=== PATIENT | male | born 1960 | race Caucasian/White ===

== ENCOUNTER 2024-03-03 17:13 | Inpatient (IN) | payer MEDICARE ==
[2024-03-03] MEDS: IPRATROPIUM-ALBUTEROL 3 ML NEB INHALATION STA ×2 (17:24→19:52)
--- NOTE | 2024-03-03 17:28 | ED ---
SOB HPI - General Chief Complaint: Shortness of Breath Stated Complaint: DRAKE Time Seen by Provider: 03/03/24 17:20 Source: patient, EMS, RN notes reviewed Mode of arrival: EMS Limitations: no limitations - History of Present Illness Initial Comments: 63-year-old smoker history of PE in the past also history of COPD who apparently had been feeling well for the past week or so he called EMS today he was found to have a blood pressure in the 70s which improved to the 80s and 90s after about 900 cc of fluids. He was given updraft treatment which did help with his breathing.. He denies any chest pain he does have some upper abdominal discomfort he states he is a poor historian at this time. He is awake and alert though somewhat slow to respond initially. Trauma reported. No overt fevers chills or sweats reported some cough reported. MD Complaint: shortness of breath - Related Data Home Medications Medication Instructions Recorded Confirmed Losartan Potassium 100 mg PO HS 03/03/24 03/03/24 Naproxen [Naprosyn] 500 mg PO HS 03/03/24 03/03/24 Warfarin [Coumadin] 5 mg PO HS 03/03/24 03/03/24 hydroCHLOROthiazide [Hydrodiuril] 25 mg PO HS 03/03/24 03/03/24 traZODone HCL 100 mg PO HS 03/03/24 03/03/24 Allergies Allergy/AdvReac Type Severity Reaction Status Date / Time bee venom protein (honey bee) Allergy Anaphylaxis Verified 03/03/24 18:44 Penicillins Allergy Unknown Verified 03/03/24 18:44 Review of Systems ROS Statement: Those systems with pertinent positive or pertinent negative responses have been documented in the HPI. ROS Other: All systems not noted in ROS Statement are negative. Past Medical History Past Medical History: Unable to Obtain Additional Past Medical History / Comment(s): PE, History of Any Multi-Drug Resistant Organisms: Unobtainable Past Surgical History: Unable to Obtain Past Psychological History: Unable to Obtain Smoking Status: Current every day smoker Past Alcohol Use History: Unable to Obtain Past Drug Use History: Unable to Obtain General Exam - General Exam Comments Initial Comments: Is a well-developed well-nourished awake alert though somewhat lethargic patient Limitations: no limitations General appearance: alert, lethargic Head exam: Present: atraumatic, normocephalic, normal inspection Eye exam: Present: normal appearance, PERRL, EOMI. Absent: scleral icterus, conjunctival injection, periorbital swelling ENT exam: Present: mucous membranes dry Neck exam: Present: normal inspection, full ROM, other (Better JVD or bruits). Absent: tenderness, meningismus, lymphadenopathy Respiratory exam: Present: wheezes (This is especially on the right lung fiel ds), decreased breath sounds. Absent: respiratory distress, rales, rhonchi, stridor Cardiovascular Exam: Present: regular rate, normal rhythm, normal heart sounds. Absent: systolic murmur, diastolic murmur, rubs, gallop, clicks GI/Abdominal exam: Present: soft, normal bowel sounds. Absent: distended, tenderness, guarding, rebound, rigid, bruit, pulsatile mass Extremities exam: Present: full ROM, normal capillary refill, pedal edema (Trace edema). Absent: tenderness, joint swelling, calf tenderness Back exam: Present: normal inspection Neurological exam: Present: alert, oriented X3, CN II-XII intact Psychiatric exam: Present: normal affect, normal mood Skin exam: Present: warm, dry, intact, other (Evidence of a left axillary Neema infection). Absent: rash Course Vital Signs 03/03/24 03/03/24 03/03/24 17:15 17:19 17:24 Temperature Pulse Rate 69 120 H Respiratory 24 16 Rate Blood Pressure 116/92 O2 Sat by Pulse 97 Oximetry 03/03/24 03/03/24 03/03/24 17:31 17:32 17:52 Temperature 97 F L Pulse Rate 136 H 125 H Respiratory 22 22 Rate Blood Pressure O2 Sat by Pulse 100 Oximetry 03/03/24 03/03/24 03/03/24 18:13 18:27 18:53 Temperature Pulse Rate 130 H 124 H 129 H Respiratory 22 22 20 Rate Blood Pressure 108/57 79/59 97/68 O2 Sat by Pulse 90 L 93 L 94 L Oximetry 03/03/24 03/03/24 03/03/24 19:39 19:45 19:54 Temperature Pulse Rate 137 H 129 H 120 H Respiratory 18 20 18 Rate Blood Pressure 89/55 95/60 O2 Sat by Pulse 90 L 90 L Oximetry 03/03/24 03/03/24 03/03/24 19:59 20:44 21:00 Temperature Pulse Rate 145 H 117 H 125 H Respiratory 18 18 Rate Blood Pressure 89/60 103/87 O2 Sat by Pulse 92 L 94 L Oximetry Medical Decision Making - Medical Decision Making I did discuss the findings with the patient I did reevaluate him on multiple occasions. Patient is more awake and conversant at this time. He was found to have acute kidney injury, acute onset A-fib RVR, evidence of clinical dehydration. Hypotension and bronchospasm. Patient will be admitted I did discuss the case with Dr. Sanchez the patient will be admitted to the ICU due to the fluctuating blood pressure and the A-fib RVR. Consultation will be made to cardiology and nephrology. I did discuss case with Tonja Sandoval covering for Dr. Vaz. Was pt. sent in by a medical professional or institution (, PA, STOCK CONTROL SUPERVISOR, urgent care, hospital, or [facility]...) When possible be specific @ -No Did you speak to anyone other than the patient for history (EMS, parent, family, police, friend...)? What history was obtained from this source @ -Paramedics upon arrival Did you review nursing and triage notes (agree or disagree)? Why? @ -I reviewed and agree with nursing and triage notes Were old charts reviewed (outside hosp., previous admission, EMS record, old EKG, old radiological studies, urgent care reports/EKG's, [facility] records)? Report findings @ -No old charts were reviewed Differential Diagnosis (chest pain, altered mental status, abdominal pain women, abdominal pain men, vaginal bleeding, weakness, fever, dyspnea, syncope, headache, dizziness, GI bleed, back pain, seizure, CVA, palpatations, mental health, musculoskeletal)? @ -Dyspnea, failure to thrive, hypotension EKG interpreted by me (3pts min.). @ -As above EKG interpreted by me atrial fibrillation with rapid ventricular response rate of 135 QRS duration 126 QT/QTc 328/407 moderate interventricular conduction delay nonspecific T wave configuration X-rays interpreted by me (1pt min.). @ -X-ray interpreted by me evidence of left lower lobe consolidation pneumonia CT interpreted by me (1pt min.). @ -None done U/S interpreted by me (1pt. min.). @ -None done What testing was considered but not performed or refused? (CT, X-rays, U/S, labs)? Why? @ -CT angio of the chest but cannot be done due to acute kidney injury What meds were considered but not given or refused? Why? @ -None Did you discuss the management of the patient with other professionals (professionals i.e. , PA, STOCK CONTROL SUPERVISOR, lab, RT, psych nurse, social human services assistants, chemical analyst, teacher, corporation officer, transplant case manager)? Give summary @ -Dr. Laura Salinas Was smoking cessation discussed for >3mins.? @ -No Was critical care preformed (if so, how long)? @ -49 minutes Were there social determinants of health that impacted care today? How? (Homelessness, low income, unemployed, alcoholism, drug addiction, transportation, low edu. Level, literacy, decrease access to med. care, [facility], rehab)? @ -No Was there de-escalation of care discussed even if they declined (Discuss DNR or withdrawal of care, Hospice)? DNR status @ -No What co-morbidities impacted this encounter? (DM, HTN, Smoking, COPD, CAD, Cancer, CVA, ARF, Chemo, Hep., AIDS, mental health diagnosis, sleep apnea, morbid obesity)? @ -PE, history of DVT, smoker Was patient admitted / discharged? Hospital course, mention meds given and route, prescriptions, significant lab abnormalities, going to OR and other pertinent info. @ -Hospital course was admitted to the ICU Undiagnosed new problem with uncertain prognosis? @ -No Drug Therapy requiring intensive monitoring for toxicity (Heparin, Nitro, Insulin, Cardizem)? @ -No Were any procedures done? @ -No Diagnosis/symptom? @ -Acute new onset A-fib RVR, left lower lobe pneumonia, hypotension, acute kidney injury, hyponatremia, leukocytosis Acute, or Chronic, or Acute on Chronic? @ -Acute Uncomplicated (without systemic symptoms) or Complicated (systemic symptoms)? @ -Stated] Side effects of treatment? @ -No Exacerbation, Progression, or Severe Exacerbation? @ -No Poses a threat to life or bodily function? How? (Chest pain, [place], [place], pneumonia, PE, COPD, DKA, ARF, appy, cholecystitis, CVA, Diverticulitis, Homicidal, Suicidal, threat to staff... and all critical care pts) @ -Potential - Lab Data Result diagrams: 03/03/24 17:24 03/03/24 17:24 Lab Results 03/03/24 03/03/24 03/03/24 Range/Units 17:24 17:24 17:24 WBC 14.0 H (3.8-10.6) k/uL RBC 4.63 (4.30-5.90) m/uL Hgb 14.5 (13.0-17.5) gm/dL Hct 43.0 (39.0-53.0) % MCV 92.9 (80.0-100.0) fL MCH 31.4 (25.0-35.0) pg MCHC 33.8 (31.0-37.0) g/dL RDW 14.9 (11.5-15.5) % Plt Count 265 (150-450) k/uL MPV 9.2 Neutrophils % 92 % Lymphocytes % 2 % Monocytes % 5 % Eosinophils % 0 % Basophils % 0 % Neutrophils # 12.8 H (1.3-7.7) k/uL Lymphocytes # 0.3 L (1.0-4.8) k/uL Monocytes # 0.7 (0-1.0) k/uL Eosinophils # 0.0 (0-0.7) k/uL Basophils # 0.1 (0-0.2) k/uL Manual Slide Review Performed PT 18.5 H (10.0-12.5) sec INR 1.8 H (<1.2) APTT 35.0 H (22.0-30.0) sec D-Dimer 3.24 H (<0.60) mg/L FEU VBG pH (7.31-7.41) VBG pCO2 (37-51) mmHg VBG HCO3 (24-28) mmol/L Sodium 126 L (137-145) mmol/L Potassium 3.8 (3.5-5.1) mmol/L Chloride 88 L (98-107) mmol/L Carbon Dioxide 21 L (22-30) mmol/L Anion Gap 17 mmol/L BUN 116 H* (9-20) mg/dL Creatinine 4.51 H (0.66-1.25) mg/dL Est GFR (CKD-EPI)AfAm 15 (>60 ml/min/1.73 sqM) Est GFR (CKD-EPI)NonAf 13 (>60 ml/min/1.73 sqM) Glucose 142 H (74-99) mg/dL Lactic Ac Sepsis Rflx Plasma Lactic Acid Jakob (0.7-2.0) mmol/L Calcium 7.2 L (8.4-10.2) mg/dL Magnesium 2.6 H (1.6-2.3) mg/dL Total Bilirubin 2.1 H (0.2-1.3) mg/dL AST 295 H (17-59) U/L ALT 84 H (4-49) U/L Alkaline Phosphatase 65 (38-126) U/L Creatine Kinase 93 (55-170) U/L Troponin I (0.000-0.034) ng/mL NT-Pro-B Natriuret Pep 72830 pg/mL Total Protein 5.5 L (6.3-8.2) g/dL Albumin 2.9 L (3.5-5.0) g/dL Lipase 132 (23-300) U/L Influenza Type A (PCR) (Not Detectd) Influenza Type B (PCR) (Not Detectd) RSV (PCR) (Not Detectd) SARS-CoV-2 (PCR) (Not Detectd) 03/03/24 03/03/24 03/03/24 Range/Units 17:24 17:24 17:24 WBC (3.8-10.6) k/uL RBC (4.30-5.90) m/uL Hgb (13.0-17.5) gm/dL Hct (39.0-53.0) % MCV (80.0-100.0) fL MCH (25.0-35.0) pg MCHC (31.0-37.0) g/dL RDW (11.5-15.5) % Plt Count (150-450) k/uL MPV Neutrophils % % Lymphocytes % % Monocytes % % Eosinophils % % Basophils % % Neutrophils # (1.3-7.7) k/uL Lymphocytes # (1.0-4.8) k/uL Monocytes # (0-1.0) k/uL Eosinophils # (0-0.7) k/uL Basophils # (0-0.2) k/uL Manual Slide Review PT (10.0-12.5) sec INR (<1.2) APTT (22.0-30.0) sec D-Dimer (<0.60) mg/L FEU VBG pH (7.31-7.41) VBG pCO2 (37-51) mmHg VBG HCO3 (24-28) mmol/L Sodium (137-145) mmol/L Potassium (3.5-5.1) mmol/L Chloride (98-107) mmol/L Carbon Dioxide (22-30) mmol/L Anion Gap mmol/L BUN (9-20) mg/dL Creatinine (0.66-1.25) mg/dL Est GFR (CKD-EPI)AfAm (>60 ml/min/1.73 sqM) Est GFR (CKD-EPI)NonAf (>60 ml/min/1.73 sqM) Glucose (74-99) mg/dL Lactic Ac Sepsis Rflx Plasma Lactic Acid Jakob 2.7 H* (0.7-2.0) mmol/L Calcium (8.4-10.2) mg/dL Magnesium (1.6-2.3) mg/dL Total Bilirubin (0.2-1.3) mg/dL AST (17-59) U/L ALT (4-49) U/L Alkaline Phosphatase (38-126) U/L Creatine Kinase (55-170) U/L Troponin I <0.012 (0.000-0.034) ng/mL NT-Pro-B Natriuret Pep pg/mL Total Protein (6.3-8.2) g/dL Albumin (3.5-5.0) g/dL Lipase (23-300) U/L Influenza Type A (PCR) Not Detected (Not Detectd) Influenza Type B (PCR) Not Detected (Not Detectd) RSV (PCR) Not Detected (Not Detectd) SARS-CoV-2 (PCR) Not Detected (Not Detectd) 03/03/24 03/03/24 03/03/24 Range/Units 17:24 18:17 20:34 WBC (3.8-10.6) k/uL RBC (4.30-5.90) m/uL Hgb (13.0-17.5) gm/dL Hct (39.0-53.0) % MCV (80.0-100.0) fL MCH (25.0-35.0) pg MCHC (31.0-37.0) g/dL RDW (11.5-15.5) % Plt Count (150-450) k/uL MPV Neutrophils % % Lymphocytes % % Monocytes % % Eosinophils % % Basophils % % Neutrophils # (1.3-7.7) k/uL Lymphocytes # (1.0-4.8) k/uL Monocytes # (0-1.0) k/uL Eosinophils # (0-0.7) k/uL Basophils # (0-0.2) k/uL Manual Slide Review PT (10.0-12.5) sec INR (<1.2) APTT (22.0-30.0) sec D-Dimer (<0.60) mg/L FEU VBG pH 7.29 L (7.31-7.41) VBG pCO2 49 (37-51) mmHg VBG HCO3 24 (24-28) mmol/L Sodium (137-145) mmol/L Potassium (3.5-5.1) mmol/L Chloride (98-107) mmol/L Carbon Dioxide (22-30) mmol/L Anion Gap mmol/L BUN (9-20) mg/dL Creatinine (0.66-1.25) mg/dL Est GFR (CKD-EPI)AfAm (>60 ml/min/1.73 sqM) Est GFR (CKD-EPI)NonAf (>60 ml/min/1.73 sqM) Glucose (74-99) mg/dL Lactic Ac Sepsis Rflx Y Plasma Lactic Acid Jakob 2.0 (0.7-2.0) mmol/L Calcium (8.4-10.2) mg/dL Magnesium (1.6-2.3) mg/dL Total Bilirubin (0.2-1.3) mg/dL AST (17-59) U/L ALT (4-49) U/L Alkaline Phosphatase (38-126) U/L Creatine Kinase (55-170) U/L Troponin I (0.000-0.034) ng/mL NT-Pro-B Natriuret Pep pg/mL Total Protein (6.3-8.2) g/dL Albumin (3.5-5.0) g/dL Lipase (23-300) U/L Influenza Type A (PCR) (Not Detectd) Influenza Type B (PCR) (Not Detectd) RSV (PCR) (Not Detectd) SARS-CoV-2 (PCR) (Not Detectd) Critical Care Time Critical Care Time: Yes Total Critical Care Time: 49 Disposition Clinical Impression: Acute kidney injury, Atrial fibrillation, Pneumonia, Hypotension, Acute bronchospasm Disposition: ADMITTED IP TO THIS [facility] Condition: Serious Referrals: None,Stated [REFERRING] - 1-2 days Time of Disposition: 21:00 Decision Date: 03/03/24 Decision Time: 21:00
[2024-03-03 17:41] LABS: VBG PH 7.29 (7.31-7.41)
[2024-03-03 17:51] LABS: Basophils # (A) 0.1 k/uL (0-0.2); Basophils % (A) 0 %; Eosinophils % (A) 0 %; HGB 14.5 gm/dL (13.0-17.5); Lymphocytes # (A) 0.3 k/uL (1.0-4.8); Lymphocytes % (A) 2 %; MCH 31.4 pg (25.0-35.0); MCHC 33.8 g/dL (31.0-37.0); MCV 92.9 fL (80.0-100.0); Mean Platelet Volume 9.2; Monocytes # (A) 0.7 k/uL (0-1.0); Monocytes % (A) 5 %; Neutrophils # (A) 12.8 k/uL (1.3-7.7); Neutrophils % (A) 92 %; Platelet Count 265 k/uL (150-450); RBC 4.63 m/uL (4.30-5.90); RDW 14.9 % (11.5-15.5)
[2024-03-03 18:06] LABS: INR 1.8 (<1.2); Prothrombin Time 18.5 sec (10.0-12.5)
--- NOTE | 2024-03-03 18:06 | XR ---
EXAMINATION TYPE: XR chest 2V DATE OF EXAM: 03/03/2024 COMPARISON: NONE HISTORY: Shortness of breath TECHNIQUE: Frontal and lateral views of the chest are obtained. FINDINGS: Scattered senescent parenchymal changes noted. Hyperinflation compatible with COPD. There is prominence of the left hilum and basilar prominence seen which may reflect underlying pneumo ann. Correlate clinically. Heart size is stable. Mediastinal structures are stable and grossly unremarkable. No evidence for hilar prominence. Degenerative changes dorsal spine. IMPRESSION: 1. There is prominence of the left hilum and basilar prominence seen which may reflect underlying pne umonia. Correlate clinically.
[2024-03-03 18:08] LABS: ALT 84 U/L (4-49); AST 295 U/L (17-59); Albumin 2.9 g/dL (3.5-5.0); Alkaline Phosphatase 65 U/L (38-126); Anion Gap 17 mmol/L; Calcium 7.2 mg/dL (8.4-10.2); Carbon Dioxide 21 mmol/L (22-30); Chloride 88 mmol/L (98-107); Creatine Kinase 93 U/L (55-170); Glucose 142 mg/dL (74-99); Lipase 132 U/L (23-300); Magnesium 2.6 mg/dL (1.6-2.3); Potassium 3.8 mmol/L (3.5-5.1); Sodium 126 mmol/L (137-145); Total Bilirubin 2.1 mg/dL (0.2-1.3); Total Protein 5.5 g/dL (6.3-8.2)
[2024-03-03 18:14] LABS: African American GFR (CKD) 15 (>60 ml/min/1.73 sqM); Non-African American GFR(CKD) 13 (>60 ml/min/1.73 sqM)
[2024-03-03 18:17] LABS: Blood Urea Nitrogen 116 mg/dL (9-20)
[2024-03-03 18:18] LABS: NT-Pro-B-Type Natriuretic Pept 10100 pg/mL
[2024-03-03] MEDS: SODIUM CHLORIDE 0.9% 500 ML 500 ML IV STA (18:36)
[2024-03-03] MEDS: cefTRIAXone IN SWFI 1,000 MG/10 ML SYRINGE IVP STA (18:52)
--- NOTE | 2024-03-03 19:07 | US ---
EXAMINATION TYPE: US gallbladder DATE OF EXAM: 03/03/2024 COMPARISON: NONE CLINICAL INDICATION: Male, 63 years old with history of right upper quadrant abdominal pain; TECHNIQUE: Multiple sonographic images of the right upper quadrant are obtained. FINDINGS: EXAM MEASUREMENTS: Liver Length: 18.3 cm Gallbladder Wall: 0.3 cm CBD: 3.3 mm Right Kidney: 11.7 x 6.8 x 5.5 cm COUNTY SURVEYOR NOTES: Pancreas: wnl Liver: Slightly enlarged Gallbladder: wnl Evidence for sonographic Garcia's sign: No CBD: 3.3 mm Right Kidney: wnl IMPRESSION: No imaging findings I would explain the patient's symptoms. Normal gallbladder.
[2024-03-03] MEDS ORDERED: HEPARIN SODIUM 1,000 UN/ML (10ML VL) IV PRN (19:18)
[2024-03-03] MEDS: DILTIAZEM 125 MG in SODIUM CHLORIDE 0.9% 100 ML IV SCH (19:43)
[2024-03-03] MEDS: HEPARIN SODIUM 1,000 UN/ML (10ML VL) IV ONE (19:49)
[2024-03-03] MEDS: HEPARIN SOD,PORK IN 0.45% NACL 25,000 UNIT in 0.45% NACL 1 250ML.BAG IV SCH (19:50)
[2024-03-03] MEDS: DILTIAZEM 5 MG/ML 5 ML VIAL IVP STA (20:11)
[2024-03-03] MEDS: SODIUM CHLORIDE 0.9% 500 ML 500 ML IV ONE (21:05)
[2024-03-03] MEDS: methylPREDNISolone SOD SUCCI 125 MG/2 ML VIAL IV STA (21:38)
[2024-03-03] MEDS ORDERED: ACETAMINOPHEN TAB 325 MG TAB PO PRN (21:47)
[2024-03-03] MEDS ORDERED: NALOXONE 0.4 MG/ML 1 ML VIAL IV PRN (21:47)
[2024-03-03] MEDS: SODIUM CHLORIDE 0.9% 1,000 ML IV STA (22:23)
[2024-03-03 23:06] LABS: Glucose,Whole Blood 148 mg/dL (70-110)
[2024-03-04] MEDS ORDERED: HYDROcodone/APAP 5-325MG 1 EACH TAB PO PRN (00:25)
[2024-03-04] MEDS: NYSTATIN 100,000 UNIT/GM OINT 30 GM TUBE TOPICAL SCH (01:15)
[2024-03-04] MEDS: SODIUM CHLORIDE 0.9% 1,000 ML IV SCH (05:15)
[2024-03-04 05:58] LABS: ALT 73 U/L (4-49); AST 256 U/L (17-59); Albumin 2.3 g/dL (3.5-5.0); Alkaline Phosphatase 70 U/L (38-126); Anion Gap 15 mmol/L; Carbon Dioxide 16 mmol/L (22-30); Chloride 92 mmol/L (98-107); Glucose 222 mg/dL (74-99); Potassium 3.5 mmol/L (3.5-5.1); Sodium 123 mmol/L (137-145); Total Bilirubin 1.4 mg/dL (0.2-1.3); Total Protein 4.7 g/dL (6.3-8.2)
[2024-03-04 06:04] LABS: African American GFR (CKD) 17 (>60 ml/min/1.73 sqM); Non-African American GFR(CKD) 14 (>60 ml/min/1.73 sqM)
[2024-03-04 06:08] LABS: Blood Urea Nitrogen 114 mg/dL (9-20); Calcium 6.3 mg/dL (8.4-10.2)
[2024-03-04 06:26] LABS: Glucose,Whole Blood 260 mg/dL (70-110)
--- NOTE | 2024-03-04 06:42 | XR ---
EXAMINATION TYPE: XR chest 1V DATE OF EXAM: 03/04/2024 COMPARISON: 03/03/2024 HISTORY: Left lower lobe infiltrate progress TECHNIQUE: Single frontal view of the chest is obtained. FINDINGS: There is mild worsening of the cephalization of the pulmonary vasculature. The retrocardiac opacity o bscuring left hemidiaphragm is unchanged. There is no pneumothorax. IMPRESSION: 1. No change in the left lower lobe infiltrate. 2. Increasing cephalization of the pulmonary vasculature consistent with CHF.
[2024-03-04 07:20] LABS: Basophils % (A) 0 %; Eosinophils # (A) 0.1 k/uL (0-0.7); Eosinophils % (A) 0 %; Lymphocytes # (A) 0.3 k/uL (1.0-4.8); Lymphocytes % (A) 2 %; MCH 31.4 pg (25.0-35.0); MCHC 33.4 g/dL (31.0-37.0); MCV 93.9 fL (80.0-100.0); Mean Platelet Volume 9.6; Monocytes # (A) 0.5 k/uL (0-1.0); Monocytes % (A) 3 %; Neutrophils # (A) 14.1 k/uL (1.3-7.7); Neutrophils % (A) 94 %; Platelet Count 231 k/uL (150-450); RBC 3.83 m/uL (4.30-5.90); RDW 15.1 % (11.5-15.5); WBC 14.9 k/uL (3.8-10.6)
[2024-03-04 07:23] LABS: Anion Gap 14 mmol/L; Carbon Dioxide 16 mmol/L (22-30); Chloride 93 mmol/L (98-107); Glucose 221 mg/dL (74-99); Potassium 3.6 mmol/L (3.5-5.1); Sodium 123 mmol/L (137-145)
[2024-03-04 07:29] LABS: African American GFR (CKD) 16 (>60 ml/min/1.73 sqM); Non-African American GFR(CKD) 14 (>60 ml/min/1.73 sqM)
[2024-03-04 07:43] LABS: Blood Urea Nitrogen 116 mg/dL (9-20); Calcium 6.4 mg/dL (8.4-10.2)
[2024-03-04] MEDS: IPRATROPIUM-ALBUTEROL 3 ML NEB INHALATION SCH (08:01)
[2024-03-04] MEDS: FAMOTIDINE 20 MG TAB PO SCH (08:25)
[2024-03-04] MEDS: BUDESONIDE 1 MG/2 ML NEBU INHALATION SCH (09:18)
[2024-03-04] MEDS: FORMOTEROL FUMARATE 20 MCG/2 ML NEBU INHALATION SCH (09:18)
[2024-03-04] MEDS: ALPRAZolam 0.25 MG TAB PO PRN (10:25)
--- NOTE | 2024-03-04 10:56 | P.CNPUL ---
History of Present Illness Consult date: 03/04/24 Requesting physician: Lyric Vaz Reason for consult: dyspnea, other (Critical care management) Chief complaint: Shortness of breath, weakness History of present illness: This is a 63-year-old male patient who is somewhat of a poor historian. He has not been compliant with his medications and follow-ups with a primary care provider. He states he has not done well since his brother and scientific research manager approximately 1 month ago. He does have a history of atrial fibrillation anticoagulated with warfarin, hypertension. He came to the emergency room yesterday by EMS for shortness of breath and generalized weakness over the past several weeks. He was found to be hypotensive in the 70s systolically and improved into the 80s and 90s following a liter bolus. Chest x-ray lobe infiltrate. Increased pulmonary vascular congestion consistent with congestive heart failure. White count 14.9. Hemoglobin 12.0. Platelets 231. Sodium 123. Potassium 3.6. Bicarb 16. BUN 116. Creatinine 4.16. Glucose 221. proBNP 10,100. AST 256. ALT 73. Ultrasound the gallbladder within normal limits. He is seen today in consultation in the intensive care unit. He is currently awake and alert. Unsure of his home medications. Is a smoker. He is currently on heparin drip per weight-based protocol. Cardizem drip at 5 mg an hour. Normal saline at KVO. He was requiring BiPAP support currently 12/5 and 100% FiO2 alternating with 15 L of high flow nasal cannula. Review of Systems REVIEW OF SYSTEMS: CONSTITUTIONAL: Positive for generalized weakness. Denies any recent significant weight loss or weight gain. EYES: Denies change in vision. EARS, NOSE, MOUTH, THROAT: Denies headaches, denies sore throat. CARDIOVASCULAR: Denies chest pain, palpitations or syncopal episodes. RESPIRATORY: Positive for shortness of breath, cough, congestion no hemoptysis. GASTROINTESTINAL: Denies change in appetite, denies abdominal pain GENITOURINARY: Denies hematuria, denies infections. MUSKULOSKELETAL: Positive for lower extremity swelling. INTEGUMENTARY: Denies rash, denies eczema. NEUROLOGICAL: Denies recent memory loss, no recent seizure activity. PSYCHIATRIC: Denies anxiety, denies depression. HEMATOLOGIC/LYMPHATIC: Denies anemia, denies enlarged lymph nodes. Past Medical History Past Medical History: Atrial Fibrillation, COPD, Hypertension, Pulmonary Embolus (PE), Thyroid Disorder Additional Past Medical History / Comment(s): PE, History of Any Multi-Drug Resistant Organisms: None Reported Past Surgical History: Joint Replacement, Tonsillectomy Additional Past Surgical History / Comment(s): Total Right knee replacement Past Anesthesia/Blood Transfusion Reactions: No Reported Reaction Past Psychological History: Anxiety, Depression Additional Psychological History / Comment(s): Current Smoking Status: Current every day smoker Past Alcohol Use History: None Reported Past Drug Use History: Marijuana Additional Drug Use History / Comment(s): Daily marijuana use for back pain. Per patient he did have history of opioid addiction that required methadone treatment Medications and Allergies Home Medications Medication Instructions Recorded Confirmed Type Losartan Potassium 100 mg PO HS 03/03/24 03/03/24 History Naproxen [Naprosyn] 500 mg PO HS 03/03/24 03/03/24 History Warfarin [Coumadin] 5 mg PO HS 03/03/24 03/03/24 History hydroCHLOROthiazide [Hydrodiuril] 25 mg PO HS 03/03/24 03/03/24 History traZODone HCL 100 mg PO HS 03/03/24 03/03/24 History Allergies Allergy/AdvReac Type Severity Reaction Status Date / Time bee venom protein (honey bee) Allergy Anaphylaxis Verified 03/03/24 18:44 Penicillins Allergy Unknown Verified 03/03/24 18:44 Physical Exam Vitals: Vital Signs Temp Pulse Resp BP Pulse Ox FiO2 03/04/24 10:00 114 H 19 93/61 99 100 03/04/24 09:34 101 H 03/04/24 09:30 108 H 22 98/63 94 L 100 03/04/24 09:18 105 H 100 03/04/24 09:00 109 H 20 115/68 93 L 03/04/24 08:54 100 03/04/24 08:30 105 H 25 H 97/74 92 L 03/04/24 08:28 98 03/04/24 08:02 98 90 L 03/04/24 08:00 98.2 F 98 22 106/62 95 03/04/24 07:30 106 H 20 113/78 92 L 15 03/04/24 07:00 106 H 24 103/64 90 L 03/04/24 06:30 98 32 H 130/54 89 L 03/04/24 06:00 109 H 24 130/54 90 L 03/04/24 05:30 106 H 18 89/62 89 L 03/04/24 05:00 99 19 93/65 88 L 03/04/24 04:30 107 H 23 107/69 89 L 03/04/24 04:00 98.0 F 111 H 17 99/61 88 L 03/04/24 03:30 109 H 18 96/76 90 L 03/04/24 03:00 108 H 24 103/67 90 L 03/04/24 02:30 112 H 22 97/66 89 L 03/04/24 02:00 112 H 25 H 93/52 88 L 03/04/24 01:30 112 H 21 105/74 91 L 03/04/24 01:10 112 H 25 H 105/74 91 L 03/04/24 01:00 116 H 35 H 95/71 90 L 03/04/24 00:50 112 H 19 95/71 90 L 03/04/24 00:40 123 H 24 95/71 89 L 03/04/24 00:30 128 H 27 H 119/69 90 L 03/04/24 00:20 118 H 28 H 119/69 91 L 03/04/24 00:10 128 H 22 119/69 90 L 03/04/24 00:00 98.0 F 122 H 24 101/63 89 L 03/03/24 23:50 126 H 24 101/63 88 L 03/03/24 23:40 125 H 28 H 101/63 90 L 03/03/24 23:30 117 H 30 H 91/70 92 L 03/03/24 23:20 121 H 24 91/70 92 L 03/03/24 23:10 97.9 F 131 H 22 105/58 91 L 03/03/24 22:35 114 H 20 113/82 93 L 03/03/24 22:00 120 H 18 92/53 92 L 03/03/24 21:00 125 H 18 103/87 94 L 03/03/24 20:44 117 H 18 89/60 92 L 03/03/24 19:59 145 H 03/03/24 19:54 120 H 18 03/03/24 19:45 129 H 20 95/60 90 L 03/03/24 19:39 137 H 18 89/55 90 L 03/03/24 18:53 129 H 20 97/68 94 L 03/03/24 18:27 124 H 22 79/59 93 L 03/03/24 18:13 130 H 22 108/57 90 L 03/03/24 17:52 125 H 22 100 03/03/24 17:32 136 H 22 03/03/24 17:31 97 F L 03/03/24 17:24 120 H 16 03/03/24 17:19 116/92 03/03/24 17:15 69 24 97 Intake and Output 03/03/24 03/04/24 03/04/24 22:59 06:59 14:59 Intake Total 80 360.171 Output Total 450 250 Balance -370 110.171 Intake: IV 80 50 Invasive Line 1 10 Sodium Chloride 0.9% 1, 80 40 000 ml @ 10 mls/hr IV . Q24H VICTOR M Rx#:[id number] Intake, IV Titration 290.171 Amount Diltiazem 125 mg In 74.417 Sodium Chloride 0.9% 100 ml @ 5 MG/HR 5 mls/hr IV .Q24H VICTOR M Rx#:[id number] Heparin Sod,Pork in 0.45% 215.754 NaCl 25,000 unit In 0.45 % NaCl 1 250ml.bag @ 18 UNITS/KG/HR 17.146 mls/hr IV .[id number] VICTOR M Rx#: [id number] Oral 20 Output: Urine 450 250 Other: # Voids 0 0 # Bowel Movements 0 Weight 95.254 kg 101.968 kg GENERAL EXAM: Alert, disheveled, unkept 63-year-old male, on BiPAP 12/5 and 100% FiO2, in no apparent distress. HEAD: Normocephalic. EYES: Normal reaction of pupils, equal size. NOSE: Clear with pink turbinates. THROAT: No erythema or exudates. NECK: No masses, no JVD. CHEST: No chest wall deformity. LUNGS: Equal air entry with bilateral scattered rhonchi, crackles in the posterior bases. CVS: S1 and S2 normal with no audible murmur, regular rhythm. ABDOMEN: Obese, no hepatosplenomegaly, normal bowel sounds, no guarding or rigidity. SPINE: No scoliosis or deformity SKIN: No rashes CENTRAL NERVOUS SYSTEM: No focal deficits, tone is normal in all 4 extremities. EXTREMITIES: Rash in the bilateral groins, there is 1-2+ peripheral edema. No clubbing, no cyanosis. Peripheral pulses are intact. Results - Laboratory Findings CBC and BMP: 03/04/24 06:46 03/04/24 06:46 PT/INR, D-dimer PT 18.5 sec (10.0-12.5) H 03/03/24 17:24 INR 1.8 (<1.2) H 03/03/24 17:24 D-Dimer 3.24 mg/L FEU (<0.60) H 03/03/24 17:24 Abnormal lab findings: Abnormal Labs 03/03/24 03/03/24 03/03/24 17:24 17:24 17:24 WBC 14.0 H RBC Hgb Hct Neutrophils # 12.8 H Lymphocytes # 0.3 L PT 18.5 H INR 1.8 H APTT 35.0 H D-Dimer 3.24 H VBG pH Sodium 126 L Chloride 88 L Carbon Dioxide 21 L BUN 116 H* Creatinine 4.51 H Glucose 142 H POC Glucose (mg/dL) Plasma Lactic Acid Jakob Calcium 7.2 L Ionized Calcium Enedina Magnesium 2.6 H Total Bilirubin 2.1 H AST 295 H ALT 84 H Total Protein 5.5 L Albumin 2.9 L 03/03/24 03/03/24 03/03/24 17:24 17:24 23:04 WBC RBC Hgb Hct Neutrophils # Lymphocytes # PT INR APTT D-Dimer VBG pH 7.29 L Sodium Chloride Carbon Dioxide BUN Creatinine Glucose POC Glucose (mg/dL) 148 H Plasma Lactic Acid Jakob 2.7 H* Calcium Ionized Calcium Enedina Magnesium Total Bilirubin AST ALT Total Protein Albumin 03/04/24 03/04/24 03/04/24 01:22 04:55 06:24 WBC RBC Hgb Hct Neutrophils # Lymphocytes # PT INR APTT 60.5 H D-Dimer VBG pH Sodium 123 L Chloride 92 L Carbon Dioxide 16 L BUN 114 H* Creatinine 4.11 H Glucose 222 H POC Glucose (mg/dL) 260 H Plasma Lactic Acid Jakob Calcium 6.3 L* Ionized Calcium Enedina Magnesium Total Bilirubin 1.4 H AST 256 H ALT 73 H Total Protein 4.7 L Albumin 2.3 L 03/04/24 03/04/24 03/04/24 06:46 06:46 08:14 WBC 14.9 H RBC 3.83 L Hgb 12.0 L Hct 36.0 L Neutrophils # 14.1 H Lymphocytes # 0.3 L PT INR APTT D-Dimer VBG pH Sodium 123 L Chloride 93 L Carbon Dioxide 16 L BUN 116 H* Creatinine 4.16 H Glucose 221 H POC Glucose (mg/dL) Plasma Lactic Acid Jakob Calcium 6.4 L* Ionized Calcium [place] 3.7 L Magnesium Total Bilirubin AST ALT Total Protein Albumin - Diagnostic Findings Chest x-ray: image reviewed Assessment and Plan Assessment: Acute hypoxemic respiratory failure secondary to an acute exacerbation of suspected diastolic versus systolic congestive heart failure, possible pneumonia Atrial fibrillation with rapid ventricular response, currently on a heparin drip, Cardizem drip Acute kidney injury suspect secondary to dehydration, hypotension Leukocytosis Hyponatremia Hyperglycemia Hypocalcemia Transaminitis Chronic tobacco dependence Poor medical compliance Plan: Patient was seen and evaluated Chest x-ray, labs and medications reviewed Currently on BiPAP 12/5 and 100% FiO2 Alternate with Airvo versus high flow oxygen as tolerated Titrate down the FiO2 as tolerated Continue heparin drip Continue Cardizem drip Continue DuoNeb inhalation, Solu-Medrol Add Pulmicort and Perforomist inhalations Check a procalcitonin Echocardiogram pending Cardiology, nephrology consults We will continue to follow and make further recommendations based on his clinical status I have personally seen and examined the patient, performed the documentation and the assessment and plan as written. Number of minutes spent on the visit: 20.
--- NOTE | 2024-03-04 11:30 | P.CRDCN ---
History of Present Illness Consult date: 03/04/24 History of present illness: The patient is a 63-year-old gentleman who requested to see the intensive care unit. The patient somewhat is poor historian. The patient does have a past medical history significant for hypertension and also history of atrial fibrillation not on any anticoagulation. No history of coronary artery disease or congestive heart failure. The patient presented to the hospital complaining of progressive weakness for the last several weeks. Beside that he has been experiencing progressive dyspnea. No symptoms of chest pain or chest discomfort or dizziness or lightheadedness or any presyncope or syncope. He was found to be hypoxic in the emergency department and he was started on BiPAP and admitted to the intensive care unit. Also he was found to be in atrial fibrillation with a slightly uncontrolled heart rate. He is known to have history of paroxysmal atrial fibrillation not on any anticoagulation. Also further investigation p erformed including blood work showed severely abnormal creatinine which was around 5. Nephrology is on the case. The patient is not aware of any prior history of chronic kidney disease. The EKG showed atrial fibrillation with heart rate around 110 bpm with diffuse nonspecific ST and T wave abnormalities. The pressure has been soft with a systolic pressure in the 90s. Currently he is not on any vasopressors. Also he stated function test came to be abnormal which is likely secondary to hypotension. The physical examination is remarkable for irregular rhythm with a systolic murmur at the right and left upper sternal border and bilateral rhonchi and wheezing as well as no edema was noted in the lower extremities. Assessment Acute hypoxic respiratory failure likely to be multifactorial Possible underlying pneumonia Heart failure/fluid overload Acute renal failure Atrial fibrillation with uncontrolled heart rate Obesity Plan The patient seems to be stable with a soft blood pressure and he is not on any vasopressors Start the patient on small dose of beta-linnette with metoprolol 12.5 mg p.o. twice daily Continue IV heparin at this point Obtain an echocardiogram with Doppler Follow-up with the serial cardiac enzymes Follow-up with the patient Past Medical History Past Medical History: Atrial Fibrillation, COPD, Hypertension, Pulmonary Embolus (PE), Thyroid Disorder Additional Past Medical History / Comment(s): PE, History of Any Multi-Drug Resistant Organisms: None Reported Past Surgical History: Joint Replacement, Tonsillectomy Additional Past Surgical History / Comment(s): Total Right knee replacement Past Anesthesia/Blood Transfusion Reactions: No Reported Reaction Past Psychological History: Anxiety, Depression Additional Psychological History / Comment(s): Current Smoking Status: Current every day smoker Past Alcohol Use History: None Reported Past Drug Use History: Marijuana Additional Drug Use History / Comment(s): Daily marijuana use for back pain. Per patient he did have history of opioid addiction that required methadone treatment Medications and Allergies Home Medications Medication Instructions Recorded Confirmed Type Losartan Potassium 100 mg PO HS 03/03/24 03/03/24 History Naproxen [Naprosyn] 500 mg PO HS 03/03/24 03/03/24 History Warfarin [Coumadin] 5 mg PO HS 03/03/24 03/03/24 History hydroCHLOROthiazide [Hydrodiuril] 25 mg PO HS 03/03/24 03/03/24 History traZODone HCL 100 mg PO HS 03/03/24 03/03/24 History Allergies Allergy/AdvReac Type Severity Reaction Status Date / Time bee venom protein (honey bee) Allergy Anaphylaxis Verified 03/03/24 18:44 Penicillins Allergy Unknown Verified 03/03/24 18:44 Physical Exam Vitals: Vital Signs Temp Pulse Resp BP Pulse Ox FiO2 03/04/24 10:00 114 H 19 93/61 99 100 03/04/24 09:34 101 H 03/04/24 09:30 108 H 22 98/63 94 L 100 03/04/24 09:18 105 H 100 03/04/24 09:00 109 H 20 115/68 93 L 03/04/24 08:54 100 03/04/24 08:30 105 H 25 H 97/74 92 L 03/04/24 08:28 98 03/04/24 08:02 98 90 L 03/04/24 08:00 98.2 F 98 22 106/62 95 03/04/24 07:30 106 H 20 113/78 92 L 15 03/04/24 07:00 106 H 24 103/64 90 L 03/04/24 06:30 98 32 H 130/54 89 L 03/04/24 06:00 109 H 24 130/54 90 L 03/04/24 05:30 106 H 18 89/62 89 L 03/04/24 05:00 99 19 93/65 88 L 03/04/24 04:30 107 H 23 107/69 89 L 03/04/24 04:00 98.0 F 111 H 17 99/61 88 L 03/04/24 03:30 109 H 18 96/76 90 L 03/04/24 03:00 108 H 24 103/67 90 L 03/04/24 02:30 112 H 22 97/66 89 L 03/04/24 02:00 112 H 25 H 93/52 88 L 03/04/24 01:30 112 H 21 105/74 91 L 03/04/24 01:10 112 H 25 H 105/74 91 L 03/04/24 01:00 116 H 35 H 95/71 90 L 03/04/24 00:50 112 H 19 95/71 90 L 03/04/24 00:40 123 H 24 95/71 89 L 03/04/24 00:30 128 H 27 H 119/69 90 L 03/04/24 00:20 118 H 28 H 119/69 91 L 03/04/24 00:10 128 H 22 119/69 90 L 03/04/24 00:00 98.0 F 122 H 24 101/63 89 L 03/03/24 23:50 126 H 24 101/63 88 L 03/03/24 23:40 125 H 28 H 101/63 90 L 03/03/24 23:30 117 H 30 H 91/70 92 L 03/03/24 23:20 121 H 24 91/70 92 L 03/03/24 23:10 97.9 F 131 H 22 105/58 91 L 03/03/24 22:35 114 H 20 113/82 93 L 03/03/24 22:00 120 H 18 92/53 92 L 03/03/24 21:00 125 H 18 103/87 94 L 03/03/24 20:44 117 H 18 89/60 92 L 03/03/24 19:59 145 H 03/03/24 19:54 120 H 18 03/03/24 19:45 129 H 20 95/60 90 L 03/03/24 19:39 137 H 18 89/55 90 L 03/03/24 18:53 129 H 20 97/68 94 L 03/03/24 18:27 124 H 22 79/59 93 L 03/03/24 18:13 130 H 22 108/57 90 L 03/03/24 17:52 125 H 22 100 03/03/24 17:32 136 H 22 03/03/24 17:31 97 F L 07/27/24 17:24 120 H 16 03/03/24 17:19 116/92 03/03/24 17:15 69 24 97 Intake and Output 03/03/24 03/04/24 03/04/24 22:59 06:59 14:59 Intake Total 80 360.171 Output Total 450 250 Balance -370 110.171 Intake: IV 80 50 Invasive Line 1 10 Sodium Chloride 0.9% 1, 80 40 000 ml @ 10 mls/hr IV . Q24H VICTOR M Rx#:[id number] Intake, IV Titration 290.171 Amount Diltiazem 125 mg In 74.417 Sodium Chloride 0.9% 100 ml @ 5 MG/HR 5 mls/hr IV .Q24H VICTOR M Rx#:[id number] Heparin Sod,Pork in 0.45% 215.754 NaCl 25,000 unit In 0.45 % NaCl 1 250ml.bag @ 18 UNITS/KG/HR 17.146 mls/hr IV .[id number] VICTOR M Rx#: [id number] Oral 20 Output: Urine 450 250 Other: # Voids 0 0 # Bowel Movements 0 Weight 95.254 kg 101.968 kg Results 03/04/24 06:46 03/04/24 06:46 Cardiac Enzymes 03/03/24 03/03/24 03/04/24 Range/Units 17:24 17:24 04:55 AST 295 H 256 H (17-59) U/L Troponin I <0.012 (0.000-0.034) ng/mL Coagulation 03/03/24 03/04/24 Range/Units 17:24 01:22 PT 18.5 H (10.0-12.5) sec APTT 35.0 H 60.5 H (22.0-30.0) sec CBC 03/03/24 03/04/24 Range/Units 17:24 06:46 WBC 14.0 H 14.9 H (3.8-10.6) k/uL RBC 4.63 3.83 L (4.30-5.90) m/uL Hgb 14.5 12.0 L (13.0-17.5) gm/dL Hct 43.0 36.0 L (39.0-53.0) % Plt Count 265 231 (150-450) k/uL Comprehensive Metabolic Panel 03/03/24 03/04/24 03/04/24 Range/Units 17:24 04:55 06:46 Sodium 126 L 123 L 123 L (137-145) mmol/L Potassium 3.8 3.5 3.6 (3.5-5.1) mmol/L Chloride 88 L 92 L 93 L (98-107) mmol/L Carbon Dioxide 21 L 16 L 16 L (22-30) mmol/L BUN 116 H* 114 H* 116 H* (9-20) mg/dL Creatinine 4.51 H 4.11 H 4.16 H (0.66-1.25) mg/dL Glucose 142 H 222 H 221 H (74-99) mg/dL Calcium 7.2 L 6.3 L* 6.4 L* (8.4-10.2) mg/dL AST 295 H 256 H (17-59) U/L ALT 84 H 73 H (4-49) U/L Alkaline Phosphatase 65 70 (38-126) U/L Total Protein 5.5 L 4.7 L (6.3-8.2) g/dL Albumin 2.9 L 2.3 L (3.5-5.0) g/dL Current Medications Generic Name Dose Route Start Last Admin Trade Name Freq PRN Reason Stop Dose Admin Acetaminophen 650 mg 03/03/24 21:47 Acetaminophen Tab 325 Mg Tab PO Q4HR PRN Fever and/or Mild Pain Albuterol/Ipratropium 3 ml 03/04/24 08:00 03/04/24 08:01 Ipratropium-Albuterol 3 Ml Neb INHALATION 3 ml RT-QID VICTOR M Administration Alprazolam 0.25 mg 03/04/24 09:52 03/04/24 10:25 Alprazolam 0.25 Mg Tab PO 0.25 mg TID PRN Administration Anxiety Budesonide 1 mg 03/04/24 09:00 03/04/24 09:18 Budesonide 1 Mg/2 Ml Nebu INHALATION 1 mg RT-BID VICTORM Administration Famotidine 20 mg 03/05/24 09:00 Famotidine 20 Mg Tab PO DAILY VICTOR M Formoterol Fumarate 20 mcg 03/04/24 09:00 03/04/24 09:18 Formoterol Fumarate 20 Mcg/2 Ml Nebu INHALATION 20 mcg RT-BID VICTOR M Administration Heparin Sodium (Porcine) 0 unit 03/03/24 19:18 Heparin Sodium 1,000 Un/Ml (10ml Vl) IV PER PROTOCOL PRN Low PTT Protocol Heparin Sodium/Sodium Chloride 250 mls @ 17.146 mls/hr 03/03/24 19:30 03/04/24 08:25 25,000 unit/ Sodium Chloride IV 18 units/kg/hr .[id number] VICTOR M 17.146 mls/hr Administration Protocol 18 UNITS/KG/HR Sodium Chloride 1,000 mls @ 10 mls/hr 03/04/24 00:00 03/04/24 05:15 Saline 0.9% IV 10 mls/hr .Q24H VICTOR M Administration Diltiazem HCl 125 mg/ Sodium 125 mls @ 5 mls/hr 03/04/24 10:45 Chloride IV .Q24H VICTOR M Protocol 5 MG/HR Methylprednisolone Sodium Succinate 60 mg 03/04/24 12:00 Methylprednisolone Sod Succi 125 Mg/2 Ml Vial IV Q6HR VICTOR M Naloxone HCl 0.2 mg 03/03/24 21:47 Naloxone 0.4 Mg/Ml 1 Ml Vial IV Q2M PRN Opioid Reversal Nystatin 1 applic 03/04/24 01:00 03/04/24 08:56 Nystatin 100,000 Unit/Gm Oint 30 Gm Tube TOPICAL 1 applic BID VICTOR M Administration Protocol Intake and Output 03/03/24 03/04/24 03/04/24 22:59 06:59 14:59 Intake Total 80 360.171 Output Total 450 250 Balance -370 110.171 Intake: IV 80 50 Invasive Line 1 10 Sodium Chloride 0.9% 1, 80 40 000 ml @ 10 mls/hr IV . Q24H VICTOR M Rx#:[id number] Intake, IV Titration 290.171 Amount Diltiazem 125 mg In 74.417 Sodium Chloride 0.9% 100 ml @ 5 MG/HR 5 mls/hr IV .Q24H VICTOR M Rx#:[id number] Heparin Sod,Pork in 0.45% 215.754 NaCl 25,000 unit In 0.45 % NaCl 1 250ml.bag @ 18 UNITS/KG/HR 17.146 mls/hr IV .[id number] VICTOR M Rx#: [id number] Oral 20 Output: Urine 450 250 Other: # Voids 0 0 # Bowel Movements 0 Weight 95.254 kg 101.968 kg Patient Weight 03/05/24 06:59 Weight 101.968 kg 03/04/24 06:46 03/04/24 06:46
[2024-03-04] MEDS ORDERED: DEXTROSE 50% SYRINGE 50 ML IVP PRN ×2 (11:31)
--- NOTE | 2024-03-04 11:31 | P.HPIM ---
History of Present Illness This is a pleasant 63 years old male with past medical history of multiple medical problems including A-fib, hypothyroidism, pulmonary embolism and hypertension Patient presents because of dyspnea over 4 days. Patient is poor historian because of his BiPAP Patient have hard time talking because of his dyspnea However patient can states he does not have chest pain Abdomen looks soft no leg edema no urinary problems or complaints Currently getting oxygen via his BiPAP and he has expiratory wheezing He says his smoker about 1 pack/day, unknown about his alcohol or illicit drugs He is afebrile He has mild leukocytosis at 14,000, hemoglobin 14.5 INR 1.8 Sodium 126 and creatinine 4.5 D-dimer elevated 3.2 pH is low 7.2 and pCO2 is slightly elevated at 49 proBNP is high 1000 EKG showing A-fib with RVR at 135 Chest x-ray showing cardiomegaly with pulmonary vascular congestion Gallbladder ultrasound showing gallbladder within normal limits VQ scan is ordered and is pending Review of Systems ROS unobtainable: due to mental status Past Medical History Past Medical History: Atrial Fibrillation, COPD, Hypertension, Pulmonary Embolus (PE), Thyroid Disorder Additional Past Medical History / Comment(s): PE, History of Any Multi-Drug Resistant Organisms: None Reported Past Surgical History: Joint Replacement, Tonsillectomy Additional Past Surgical History / Comment(s): Total Right knee replacement Past Anesthesia/Blood Transfusion Reactions: No Reported Reaction Past Psychological History: Anxiety, Depression Additional Psychological History / Comment(s): Current Smoking Status: Current every day smoker Past Alcohol Use History: None Reported Past Drug Use History: Marijuana Additional Drug Use History / Comment(s): Daily marijuana use for back pain. Per patient he did have history of opioid addiction that required methadone treatment Medications and Allergies Home Medications Medication Instructions Recorded Confirmed Type Losartan Potassium 100 mg PO HS 03/03/24 03/03/24 History Naproxen [Naprosyn] 500 mg PO HS 03/03/24 03/03/24 History Warfarin [Coumadin] 5 mg PO HS 03/03/24 03/03/24 History hydroCHLOROthiazide [Hydrodiuril] 25 mg PO HS 03/03/24 03/03/24 History traZODone HCL 100 mg PO HS 03/03/24 03/03/24 History Allergies Allergy/AdvReac Type Severity Reaction Status Date / Time bee venom protein (honey bee) Allergy Anaphylaxis Verified 03/03/24 18:44 Penicillins Allergy Unknown Verified 03/03/24 18:44 Physical Exam Vitals: Vital Signs Temp Pulse Resp BP Pulse Ox FiO2 03/04/24 09:34 101 H 03/04/24 09:18 105 H 100 03/04/24 08:54 100 03/04/24 08:28 98 03/04/24 08:02 98 90 L 03/04/24 07:00 106 H 24 103/64 90 L 03/04/24 06:30 98 32 H 130/54 89 L 03/04/24 06:00 109 H 24 130/54 90 L 03/04/24 05:30 106 H 18 89/62 89 L 03/04/24 05:00 99 19 93/65 88 L 03/04/24 04:30 107 H 23 107/69 89 L 03/04/24 04:00 98.0 F 111 H 17 99/61 88 L 03/04/24 03:30 109 H 18 96/76 90 L 03/04/24 03:00 108 H 24 103/67 90 L 03/04/24 02:30 112 H 22 97/66 89 L 03/04/24 02:00 112 H 25 H 93/52 88 L 03/04/24 01:30 112 H 21 105/74 91 L 03/04/24 01:10 112 H 25 H 105/74 91 L 03/04/24 01:00 116 H 35 H 95/71 90 L 03/04/24 00:50 112 H 19 95/71 90 L 03/04/24 00:40 123 H 24 95/71 89 L 03/04/24 00:30 128 H 27 H 119/69 90 L 03/04/24 00:20 118 H 28 H 119/69 91 L 03/04/24 00:10 128 H 22 119/69 90 L 03/04/24 00:00 98.0 F 122 H 24 101/63 89 L 03/03/24 23:50 126 H 24 101/63 88 L 03/03/24 23:40 125 H 28 H 101/63 90 L 03/03/24 23:30 117 H 30 H 91/70 92 L 03/03/24 23:20 121 H 24 91/70 92 L 03/03/24 23:10 97.9 F 131 H 22 105/58 91 L 03/03/24 22:35 114 H 20 113/82 93 L 03/03/24 22:00 120 H 18 92/53 92 L 03/03/24 21:00 125 H 18 103/87 94 L 03/03/24 20:44 117 H 18 89/60 92 L 03/03/24 19:59 145 H 03/03/24 19:54 120 H 18 03/03/24 19:45 129 H 20 95/60 90 L 03/03/24 19:39 137 H 18 89/55 90 L 03/03/24 18:53 129 H 20 97/68 94 L 03/03/24 18:27 124 H 22 79/59 93 L 03/03/24 18:13 130 H 22 108/57 90 L 03/03/24 17:52 125 H 22 100 03/03/24 17:32 136 H 22 03/03/24 17:31 97 F L 03/03/24 17:24 120 H 16 03/03/24 17:19 116/92 03/03/24 17:15 69 24 97 Intake and Output 03/03/24 03/04/24 03/04/24 22:59 06:59 14:59 Intake Total 80 235.754 Output Total 450 Balance -370 235.754 Intake: IV 80 20 Invasive Line 1 10 Sodium Chloride 0.9% 1, 80 10 000 ml @ 10 mls/hr IV . Q24H VICTOR M Rx#:[id number] Intake, IV Titration 215.754 Amount Heparin Sod,Pork in 0.45% 215.754 NaCl 25,000 unit In 0.45 % NaCl 1 250ml.bag @ 18 UNITS/KG/HR 17.146 mls/hr IV .[id number] VICTOR M Rx#: [id number] Output: Urine 450 Other: # Voids 0 0 Weight 95.254 kg -GENERAL: The patient is alert and oriented x3, not in any acute distress. Well developed, well nourished. Obese HEENT: Pupils are round and equally reacting to light. EOMI. No scleral icterus. No conjunctival pallor. Normocephalic, atraumatic. No pharyngeal erythema. No thyromegaly. CARDIOVASCULAR: S1 and S2 present. No murmurs, rubs, or gallops. -PULMONARY: Chest is clear to auscultation, bilateral expiratory wheezing , no crackles. Tachypneic and patient on BiPAP have hard time talking because of his dyspnea ABDOMEN: Soft, nontender, nondistended, normoactive bowel sounds. No palpable organomegaly. MUSCULOSKELETAL: No joint swelling or deformity. EXTREMITIES: No cyanosis, clubbing, or pedal edema. NEUROLOGICAL: Gross neurological examination did not reveal any focal deficits. -SKIN: No rashes. no petechiae. Left axillary rash Results CBC & Chem 7: 03/04/24 06:46 03/04/24 06:46 Labs: Abnormal Lab Results - Last 24 Hours (Table) 03/03/24 03/03/24 03/03/24 Range/Units 17:24 17:24 17:24 WBC 14.0 H (3.8-10.6) k/uL RBC (4.30-5.90) m/uL Hgb (13.0-17.5) gm/dL Hct (39.0-53.0) % Neutrophils # 12.8 H (1.3-7.7) k/uL Lymphocytes # 0.3 L (1.0-4.8) k/uL PT 18.5 H (10.0-12.5) sec INR 1.8 H (<1.2) APTT 35.0 H (22.0-30.0) sec D-Dimer 3.24 H (<0.60) mg/L FEU VBG pH (7.31-7.41) Sodium 126 L (137-145) mmol/L Chloride 88 L (98-107) mmol/L Carbon Dioxide 21 L (22-30) mmol/L BUN 116 H* (9-20) mg/dL Creatinine 4.51 H (0.66-1.25) mg/dL Glucose 142 H (74-99) mg/dL POC Glucose (mg/dL) (70-110) mg/dL Plasma Lactic Acid Jakob (0.7-2.0) mmol/L Calcium 7.2 L (8.4-10.2) mg/dL Ionized Calcium Enedina (4.5-5.3) mg/dL Magnesium 2.6 H (1.6-2.3) mg/dL Total Bilirubin 2.1 H (0.2-1.3) mg/dL AST 295 H (17-59) U/L ALT 84 H (4-49) U/L Total Protein 5.5 L (6.3-8.2) g/dL Albumin 2.9 L (3.5-5.0) g/dL 03/03/24 03/03/24 03/03/24 Range/Units 17:24 17:24 23:04 WBC (3.8-10.6) k/uL RBC (4.30-5.90) m/uL Hgb (13.0-17.5) gm/dL Hct (39.0-53.0) % Neutrophils # (1.3-7.7) k/uL Lymphocytes # (1.0-4.8) k/uL PT (10.0-12.5) sec INR (<1.2) APTT (22.0-30.0) sec D-Dimer (<0.60) mg/L FEU VBG pH 7.29 L (7.31-7.41) Sodium (137-145) mmol/L Chloride (98-107) mmol/L Carbon Dioxide (22-30) mmol/L BUN (9-20) mg/dL Creatinine (0.66-1.25) mg/dL Glucose (74-99) mg/dL POC Glucose (mg/dL) 148 H (70-110) mg/dL Plasma Lactic Acid Jakob 2.7 H* (0.7-2.0) mmol/L Calcium (8.4-10.2) mg/dL Ionized Calcium Enedina (4.5-5.3) mg/dL Magnesium (1.6-2.3) mg/dL Total Bilirubin (0.2-1.3) mg/dL AST (17-59) U/L ALT (4-49) U/L Total Protein (6.3-8.2) g/dL Albumin (3.5-5.0) g/dL 03/04/24 03/04/24 03/04/24 Range/Units 01:22 04:55 06:24 WBC (3.8-10.6) k/uL RBC (4.30-5.90) m/uL Hgb (13.0-17.5) gm/dL Hct (39.0-53.0) % Neutrophils # (1.3-7.7) k/uL Lymphocytes # (1.0-4.8) k/uL PT (10.0-12.5) sec INR (<1.2) APTT 60.5 H (22.0-30.0) sec D-Dimer (<0.60) mg/L FEU VBG pH (7.31-7.41) Sodium 123 L (137-145) mmol/L Chloride 92 L (98-107) mmol/L Carbon Dioxide 16 L (22-30) mmol/L BUN 114 H* (9-20) mg/dL Creatinine 4.11 H (0.66-1.25) mg/dL Glucose 222 H (74-99) mg/dL POC Glucose (mg/dL) 260 H (70-110) mg/dL Plasma Lactic Acid Jakob (0.7-2.0) mmol/L Calcium 6.3 L* (8.4-10.2) mg/dL Ionized Calcium Enedina (4.5-5.3) mg/dL Magnesium (1.6-2.3) mg/dL Total Bilirubin 1.4 H (0.2-1.3) mg/dL AST 256 H (17-59) U/L ALT 73 H (4-49) U/L Total Protein 4.7 L (6.3-8.2) g/dL Albumin 2.3 L (3.5-5.0) g/dL 03/04/24 03/04/24 03/04/24 Range/Units 06:46 06:46 08:14 WBC 14.9 H (3.8-10.6) k/uL RBC 3.83 L (4.30-5.90) m/uL Hgb 12.0 L (13.0-17.5) gm/dL Hct 36.0 L (39.0-53.0) % Neutrophils # 14.1 H (1.3-7.7) k/uL Lymphocytes # 0.3 L (1.0-4.8) k/uL PT (10.0-12.5) sec INR (<1.2) APTT (22.0-30.0) sec D-Dimer (<0.60) mg/L FEU VBG pH (7.31-7.41) Sodium 123 L (137-145) mmol/L Chloride 93 L (98-107) mmol/L Carbon Dioxide 16 L (22-30) mmol/L BUN 116 H* (9-20) mg/dL Creatinine 4.16 H (0.66-1.25) mg/dL Glucose 221 H (74-99) mg/dL POC Glucose (mg/dL) (70-110) mg/dL Plasma Lactic Acid Jakob (0.7-2.0) mmol/L Calcium 6.4 L* (8.4-10.2) mg/dL Ionized Calcium Enedina 3.7 L (4.5-5.3) mg/dL Magnesium (1.6-2.3) mg/dL Total Bilirubin (0.2-1.3) mg/dL AST (17-59) U/L ALT (4-49) U/L Total Protein (6.3-8.2) g/dL Albumin (3.5-5.0) g/dL Thrombosis Risk Factor Assmnt - Choose All That Apply Any of the Below Risk Factors Present?: Yes Each Factor Represents 1 point: Abnormal pulmonary function (COPD), Heart failure (<1month) Each Risk Factor Represents 3 Points: History of DVT/PE Thrombosis Risk Factor Assessment Total Risk Factor Score: 5 Thrombosis Risk Factor Assessment Level: High Risk Assessment and Plan Assessment: Acute COPD exacerbation Acute hypoxic respiratory failure A-fib and RVR Acute kidney injury Anemia Hyponatremia Hypertension, currently blood pressure on the low side Hypothyroidism Anxiety Left axillary fungal infection/candidiasis History of pulmonary embolism Obesity with BMI of 33.2 on admission Plan: Continue with IV Solu-Medrol Continue with bronchodilator Continue with BiPAP machine as needed On Cardizem drip with cardiology following closely Continue with heparin drip Pulmonary team consult Continue with nystatin Xanax as needed Recommend to hold IV fluids Labs and medication were reviewed.. Continue same treatment. Continue with symptomatic treatment. Resume home medication. Monitor labs and vitals. DVT and GI prophylaxis. Further recommendations as per clinical course of the patient DVT prophylaxis: heparin GI Prophylaxis: Pepcid Prognosis is guarded
[2024-03-04 12:03] LABS: Glucose,Whole Blood 296 mg/dL (70-110)
--- NOTE | 2024-03-04 12:13 | P.NPCON ---
History of Present Illness - Reason for Consult acute renal failure - History of Present Illness patient is a 63-year-old male who was admitted to the hospital with history of weakness. It appears that he was also short of breath. Patient was noted to be in A. fib with RVR and is currently maintained on C ardizem drip. Patient's blood pressure was significantly low with systolic in the 70s Status post IV fluids along with fluid bolus. Patient became progressively short of breath and chest x-ray showed pulmonary vascular congestion. Patient is currently off of IV fluids. sodium was noted to be 123 with a creatinine of 4.1 and BUN of 114. Home meds include Naprosyn losartan and hydrochlorothiazide. All currently on hold. No previous labs available for comparison. No diarrhea or vomiting reported. Review of Systems unable to obtain Past Medical History Past Medical History: Atrial Fibrillation, COPD, Hypertension, Pulmonary Embolus (PE), Thyroid Disorder Additional Past Medical History / Comment(s): PE, History of Any Multi-Drug Resistant Organisms: None Reported Past Surgical History: Joint Replacement, Tonsillectomy Additional Past Surgical History / Comment(s): Total Right knee replacement Past Anesthesia/Blood Transfusion Reactions: No Reported Reaction Past Psychological History: Anxiety, Depression Additional Psychological History / Comment(s): Current Smoking Status: Current every day smoker Past Alcohol Use History: None Reported Past Drug Use History: Marijuana Additional Drug Use History / Comment(s): Daily marijuana use for back pain. Per patient he did have history of opioid addiction that required methadone treatment Medications and Allergies Home Medications Medication Instructions Recorded Confirmed Type Losartan Potassium 100 mg PO HS 03/03/24 03/03/24 History Naproxen [Naprosyn] 500 mg PO HS 03/03/24 03/03/24 History Warfarin [Coumadin] 5 mg PO HS 03/03/24 03/03/24 History hydroCHLOROthiazide [Hydrodiuril] 25 mg PO HS 03/03/24 03/03/24 History traZODone HCL 100 mg PO HS 03/03/24 03/03/24 History Allergies Allergy/AdvReac Type Severity Reaction Status Date / Time bee venom protein (honey bee) Allergy Anaphylaxis Verified 03/03/24 18:44 Penicillins Allergy Unknown Verified 03/03/24 18:44 Physical Exam Vitals: Vital Signs Temp Pulse Resp BP Pulse Ox FiO2 03/04/24 10:00 114 H 19 93/61 99 100 03/04/24 09:34 101 H 03/04/24 09:30 108 H 22 98/63 94 L 100 03/04/24 09:18 105 H 100 03/04/24 09:00 109 H 20 115/68 93 L 03/04/24 08:54 100 03/04/24 08:30 105 H 25 H 97/74 92 L 03/04/24 08:28 98 03/04/24 08:02 98 90 L 03/04/24 08:00 98.2 F 98 22 106/62 95 03/04/24 07:30 106 H 20 113/78 92 L 15 03/04/24 07:00 106 H 24 103/64 90 L 03/04/24 06:30 98 32 H 130/54 89 L 03/04/24 06:00 109 H 24 130/54 90 L 03/04/24 05:30 106 H 18 89/62 89 L 03/04/24 05:00 99 19 93/65 88 L 03/04/24 04:30 107 H 23 107/69 89 L 03/04/24 04:00 98.0 F 111 H 17 99/61 88 L 03/04/24 03:30 109 H 18 96/76 90 L 03/04/24 03:00 108 H 24 103/67 90 L 03/04/24 02:30 112 H 22 97/66 89 L 03/04/24 02:00 112 H 25 H 93/52 88 L 03/04/24 01:30 112 H 21 105/74 91 L 03/04/24 01:10 112 H 25 H 105/74 91 L 03/04/24 01:00 116 H 35 H 95/71 90 L 03/04/24 00:50 112 H 19 95/71 90 L 03/04/24 00:40 123 H 24 95/71 89 L 03/04/24 00:30 128 H 27 H 119/69 90 L 03/04/24 00:20 118 H 28 H 119/69 91 L 03/04/24 00:10 128 H 22 119/69 90 L 03/04/24 00:00 98.0 F 122 H 24 101/63 89 L 03/03/24 23:50 126 H 24 101/63 88 L 03/03/24 23:40 125 H 28 H 101/63 90 L 03/03/24 23:30 117 H 30 H 91/70 92 L 03/03/24 23:20 121 H 24 91/70 92 L 03/03/24 23:10 97.9 F 131 H 22 105/58 91 L 03/03/24 22:35 114 H 20 113/82 93 L 03/03/24 22:00 120 H 18 92/53 92 L 03/03/24 21:00 125 H 18 103/87 94 L 03/03/24 20:44 117 H 18 89/60 92 L 03/03/24 19:59 145 H 03/03/24 19:54 120 H 18 03/03/24 19:45 129 H 20 95/60 90 L 03/03/24 19:39 137 H 18 89/55 90 L 03/03/24 18:53 129 H 20 97/68 94 L 03/03/24 18:27 124 H 22 79/59 93 L 03/03/24 18:13 130 H 22 108/57 90 L 03/03/24 17:52 125 H 22 100 03/03/24 17:32 136 H 22 03/03/24 17:31 97 F L 03/03/24 17:24 120 H 16 03/03/24 17:19 116/92 03/03/24 17:15 69 24 97 Intake and Output 03/03/24 03/04/24 03/04/24 22:59 06:59 14:59 Intake Total 80 360.171 Output Total 450 250 Balance -370 110.171 Intake: IV 80 50 Invasive Line 1 10 Sodium Chloride 0.9% 1, 80 40 000 ml @ 10 mls/hr IV . Q24H VICTOR M Rx#:[id number] Intake, IV Titration 290.171 Amount Diltiazem 125 mg In 74.417 Sodium Chloride 0.9% 100 ml @ 5 MG/HR 5 mls/hr IV .Q24H VICTOR M Rx#:[id number] Heparin Sod,Pork in 0.45% 215.754 NaCl 25,000 unit In 0.45 % NaCl 1 250ml.bag @ 18 UNITS/KG/HR 17.146 mls/hr IV .[id number] VICTOR M Rx#: [id number] Oral 20 Output: Urine 450 250 Other: # Voids 0 0 # Bowel Movements 0 Weight 95.254 kg 101.968 kg patient is on BiPAP. He is sleeping but arousable [place] at he has just received Xanax. 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 Results - Lab Results Most recent lab results Calcium 6.4 mg/dL (8.4-10.2) L* 03/04/24 06:46 Magnesium 2.6 mg/dL (1.6-2.3) H 03/03/24 17:24 03/04/24 06:46 03/04/24 06:46 Assessment and Plan Assessment: 1. Acute kidney injury, ischemic ATN associated with low blood pressure, nonoliguric with unknown baseline renal function. Check UA and ultrasound of the kidneys. Patient was also maintained on NSAIDs along with angiotensin receptor blockers at home, currently on hold. 2. Hyponatremia, worsened with IV fluids. Possible underlying SIADH. Check urine osmolality and random urine sodium and continue off of IV fluids. Chest x-ray suggestive of CHF. 3. Anion gap metabolic acidosis associated with acute kidney injury and lactic acidosis. 4. Hypocalcemia, rule out nutritional vitamin D deficiency 5. Acute hypoxic respiratory failure secondary to pneumonia and CHF 6. A. fib with RVR maintained on Cardizem drip 7. Type 2 diabetes Plan: check UA Lasix 40 mg IV 1 Insert Cee catheter Check random urine osmolality and urine sodium Repeat labs at 2 PM Add oral sodium bicarb if patient is able to take oral medications. Try to obtain old labs for baseline renal function. Thank you for the consultation. We will continue to follow the patient with you during his hospitalization
[2024-03-04 12:54] LABS: Phosphorus 7.7 mg/dL (2.5-4.5)
[2024-03-04] MEDS: CALCIUM GLUCONATE IN NACL 1 GM in SALINE 1 100ML.BAG IVPB ONE (12:56)
[2024-03-04] MEDS: methylPREDNISolone SOD SUCCI 125 MG/2 ML VIAL IV SCH (12:56)
[2024-03-04] MEDS: METOPROLOL TARTRATE 12.5 MG TAB PO SCH (12:56)
[2024-03-04] MEDS: FUROSEMIDE 10 MG/ML 4 ML VIAL IV STA (12:57)
[2024-03-04] MEDS: INSULIN ASPART (NovoLOG) 100 UNIT/ML VIAL SQ SCH (13:02)
[2024-03-04 14:23] LABS: T4, Free (Free Thyroxine) 1.86 ng/dL (0.78-2.19)
[2024-03-04] MEDS: DILTIAZEM 125 MG in SODIUM CHLORIDE 0.9% 100 ML IV SCH (14:30)
[2024-03-04 14:52] LABS: Appearance,Urine Cloudy (Clear); Bilirubin,Urine Negative (Negative); Blood,Urine Moderate (Negative); Color,Urine Yellow; Glucose,Urine (UA) Negative (Negative); Ketones,Urine Negative (Negative); Leukocyte Esterase,Urine Negative (Negative); Nitrite,Urine Negative (Negative); Protein,Urine Trace (Negative); RBC,Urine 1 /hpf (0-5); Specific Gravity,Urine 1.012 (1.001-1.035); Squamous Epithelial Cell,Urine 1 /hpf (0-4); Urobilinogen,Urine <2.0 mg/dL (<2.0); WBC,Urine 1 /hpf (0-5)
[2024-03-04 15:35] LABS: Potassium 3.4 mmol/L (3.5-5.1)
--- NOTE | 2024-03-04 16:24 | US ---
EXAMINATION TYPE: US kidneys/renal and bladder DATE OF EXAM: 03/04/2024 COMPARISON: 03/03/2024 CLINICAL INDICATION: Male, 63 years old with history of radu; Patient states he feels like he has to u rinate all the time; Patient denies any other signs or symptoms at this time EXAM MEASUREMENTS: Right Kidney: 12.0 x 5.7 x 4.9 cm Left Kidney: 12.6 x 5.6 x 4.5 cm Post Void Residual Volume: NA mL Right Kidney: Calc vs stone image 14 Left Kidney: WNL Bladder: Not distended, nettles seen within Bilateral Jets seen: Not able to assess Normal Post Void Residual: NA There is no evidence for hydronephrosis at this point in time. No nephrolithiasis is seen. No lazaro s are identified. IMPRESSION: 1. No evidence for obstructive uropathy. 2. Nonobstructing right renal calculus.
[2024-03-04] MEDS: FUROSEMIDE 10 MG/ML 10 ML VIAL IV STA (17:32)
[2024-03-04 17:40] LABS: Glucose,Whole Blood 267 mg/dL (70-110)
[2024-03-04] MEDS: NOREPINEPHRINE 4 MG in SODIUM CHLORIDE 0.9% 250 ML IV SCH (18:57)
[2024-03-04 20:09] LABS: Glucose,Whole Blood 308 mg/dL (70-110)
[2024-03-04] MEDS: POTASSIUM CHLORIDE ER 10 MEQ TAB.ER.PRT PO STA (20:18)
[2024-03-04] MEDS: SODIUM BICARBONATE TAB 650 MG TAB PO SCH (20:18)
[2024-03-04] MEDS: NYSTATIN 100,000 UNIT/GM POWD 15 GM TOPICAL SCH (20:18)
--- NOTE | 2024-03-04 21:45 | P.CONS ---
History of Present Illness - Reason for Consult Consult date: 03/04/24 Rash to left axilla bilateral groin area Requesting physician: Tonja Dick - Chief Complaint Weakness shortness of breath x few days - History of Present Illness Patient is a 63-year-old male with a past medical history significant for COPD hypertension atrial fibrillation PE thyroid disorder patient presenting to [facility] ER for evaluation of not feeling well with symptoms going on for about a week on arrival of the EMS the patient was noticed to be hypotensive with a blood pressure in 70s systolic patient did receive some fluid boluses also complaining of increasing shortness of breath patient was subsequently brought to [facility] ER on presentation to the hospital patient was afebrile and no fever have been recorded subsequently patient was tachycardic hypotensive requiring some pressor support was also hypoxic and has been on the BiPAP patient did have white count of 14,000 repeat is 14.9 creatinine has been elevated liver isms are mildly elevated procalcitonin is 29.20 UA negative influenza RSV COVID testing negative patient did have a chest x-ray prominence of the left hindlimb and basilar prominence which may reflect underlying pneumonia patient has been admitted to the ICU infectious was consulted regarding rash in the left axilla and bilateral groin area Review of Systems Positive point and negatives has been mentioned in the HPI, complete review of systems was performed and all other systems are negative Past Medical History Past Medical History: Atrial Fibrillation, COPD, Hypertension, Pulmonary Embolus (PE), Thyroid Disorder Additional Past Medical History / Comment(s): PE, History of Any Multi-Drug Resistant Organisms: None Reported Past Surgical History: Joint Replacement, Tonsillectomy Additional Past Surgical History / Comment(s): Total Right knee replacement Past Anesthesia/Blood Transfusion Reactions: No Reported Reaction Past Psychological History: Anxiety, Depression Additional Psychological History / Comment(s): Current Smoking Status: Current every day smoker Past Alcohol Use History: None Reported Past Drug Use History: Marijuana Additional Drug Use History / Comment(s): Daily marijuana use for back pain. Per patient he did have history of opioid addiction that required methadone treatment Medications and Allergies Home Medications Medication Instructions Recorded Confirmed Type Losartan Potassium 100 mg PO HS 03/03/24 03/03/24 History Naproxen [Naprosyn] 500 mg PO HS 03/03/24 03/03/24 History Warfarin [Coumadin] 5 mg PO HS 03/03/24 03/03/24 History hydroCHLOROthiazide [Hydrodiuril] 25 mg PO HS 03/03/24 03/03/24 History traZODone HCL 100 mg PO 03/03/24 03/03/24 History Allergies Allergy/AdvReac Type Severity Reaction Status Date / Time bee venom protein (honey bee) Allergy Anaphylaxis Verified 03/03/24 18:44 Penicillins Allergy Unknown Verified 03/03/24 18:44 Physical Exam Vitals: Vital Signs Temp Pulse Resp BP Pulse Ox FiO2 03/04/24 13:06 104 H 100 03/04/24 12:51 111 H 03/04/24 12:48 100 03/04/24 10:00 114 H 19 93/61 99 100 03/04/24 09:34 101 H 03/04/24 09:30 108 H 22 98/63 94 L 100 03/04/24 09:18 105 H 100 03/04/24 09:00 109 H 20 115/68 93 L 03/04/24 08:54 100 03/04/24 08:30 105 H 25 H 97/74 92 L 03/04/24 08:28 98 03/04/24 08:02 98 90 L 03/04/24 08:00 98.2 F 98 22 106/62 95 03/04/24 07:30 106 H 20 113/78 92 L 15 03/04/24 07:00 106 H 24 103/64 90 L 03/04/24 06:30 98 32 H 130/54 89 L 03/04/24 06:00 109 H 24 130/54 90 L 03/04/24 05:30 106 H 18 89/62 89 L 03/04/24 05:00 99 19 93/65 88 L 03/04/24 04:30 107 H 23 107/69 89 L 03/04/24 04:00 98.0 F 111 H 17 99/61 88 L 03/04/24 03:30 109 H 18 96/76 90 L 03/04/24 03:00 108 H 24 103/67 90 L 03/04/24 02:30 112 H 22 97/66 89 L 03/04/24 02:00 112 H 25 H 93/52 88 L 03/04/24 01:30 112 H 21 105/74 91 L 03/04/24 01:10 112 H 25 H 105/74 91 L 03/04/24 01:00 116 H 35 H 95/71 90 L 03/04/24 00:50 112 H 19 95/71 90 L 03/04/24 00:40 123 H 24 95/71 89 L 03/04/24 00:30 128 H 27 H 119/69 90 L 03/04/24 00:20 118 H 28 H 119/69 91 L 03/04/24 00:10 128 H 22 119/69 90 L 03/04/24 00:00 98.0 F 122 H 24 101/63 89 L 03/03/24 23:50 126 H 24 101/63 88 L 03/03/24 23:40 125 H 28 H 101/63 90 L 03/03/24 23:30 117 H 30 H 91/70 92 L 03/03/24 23:20 121 H 24 91/70 92 L 03/03/24 23:10 97.9 F 131 H 22 105/58 91 L 03/03/24 22:35 114 H 20 113/82 93 L 03/03/24 22:00 120 H 18 92/53 92 L 03/03/24 21:00 125 H 18 103/87 94 L 03/03/24 20:44 117 H 18 89/60 92 L 03/03/24 19:59 145 H 03/03/24 19:54 120 H 18 03/03/24 19:45 129 H 20 95/60 90 L 03/03/24 19:39 137 H 18 89/55 90 L 03/03/24 18:53 129 H 20 97/68 94 L 03/03/24 18:27 124 H 22 79/59 93 L 03/03/24 18:13 130 H 22 108/57 90 L 03/03/24 17:52 125 H 22 100 03/03/24 17:32 136 H 22 03/03/24 17:31 97 F L 03/03/24 17:24 120 H 16 03/03/24 17:19 116/92 03/03/24 17:15 69 24 97 Intake and Output 03/03/24 03/04/24 03/04/24 22:59 06:59 14:59 Intake Total 80 374.171 Output Total 450 250 Balance -370 124.171 Intake: IV 80 50 Invasive Line 1 10 Sodium Chloride 0.9% 1, 80 40 000 ml @ 10 mls/hr IV . Q24H [facility] Rx#:[id number] Intake, IV Titration 304.171 Amount Diltiazem 125 mg In 88.417 Sodium Chloride 0.9% 100 ml @ 5 MG/HR 5 mls/hr IV .Q24H [facility] Rx#:[id number] Heparin Sod,Pork in 0.45% 215.754 NaCl 25,000 unit In 0.45 % NaCl 1 250ml.bag @ 18 UNITS/KG/HR 17.146 mls/hr IV .[id number] [facility] Rx#: [id number] Oral 20 Output: Urine 450 250 Other: # Voids 0 0 # Bowel Movements 0 Weight 95.254 kg 101.968 kg GENERAL DESCRIPTION: Middle-aged male lying in bed, no distress. No tachypnea or accessory muscle of respiration use. HEENT: Shows Pallor , no scleral icterus. Oral mucous membrane is dry. No pharyngeal erythema or thrush NECK: Trachea central, no thyromegaly. LUNGS: Unlabored breathing. Decreased breath sound the base HEART: S1, S2, regular rate and rhythm. No loud murmur ABDOMEN: Soft, no tenderness , guarding or rigidity, no organomegaly EXTREMITIES: No edema of feet. SKIN: Did have rash to the left axillary groin area compatible with cutaneous candidiasis NEUROLOGICAL: The patient is awake, alert, oriented x3, mood and affect normal. Results CBC & Chem 7: 03/04/24 06:46 03/04/24 15:00 Labs: Abnormal Lab Results - Last 24 Hours (Table) 03/03/24 03/03/24 03/03/24 Range/Units 17:24 17:24 17:24 WBC 14.0 H (3.8-10.6) k/uL RBC (4.30-5.90) m/uL Hgb (13.0-17.5) gm/dL Hct (39.0-53.0) % Neutrophils # 12.8 H (1.3-7.7) k/uL Lymphocytes # 0.3 L (1.0-4.8) k/uL PT 18.5 H (10.0-12.5) sec INR 1.8 H (<1.2) APTT 35.0 H (22.0-30.0) sec D-Dimer 3.24 H (<0.60) mg/L FEU VBG pH (7.31-7.41) Sodium 126 L (137-145) mmol/L Chloride 88 L (98-107) mmol/L Carbon Dioxide 21 L (22-30) mmol/L BUN 116 H* (9-20) mg/dL Creatinine 4.51 H (0.66-1.25) mg/dL Glucose 142 H (74-99) mg/dL POC Glucose (mg/dL) (70-110) mg/dL Plasma Lactic Acid Jakob (0.7-2.0) mmol/L Calcium 7.2 L (8.4-10.2) mg/dL Ionized Calcium Enedina (4.5-5.3) mg/dL Phosphorus (2.5-4.5) mg/dL Magnesium 2.6 H (1.6-2.3) mg/dL Total Bilirubin 2.1 H (0.2-1.3) mg/dL AST 295 H (17-59) U/L ALT 84 H (4-49) U/L Total Protein 5.5 L (6.3-8.2) g/dL Albumin 2.9 L (3.5-5.0) g/dL 03/03/24 03/03/24 03/03/24 Range/Units 17:24 17:24 23:04 WBC (3.8-10.6) k/uL RBC (4.30-5.90) m/uL Hgb (13.0-17.5) gm/dL Hct (39.0-53.0) % Neutrophils # (1.3-7.7) k/uL Lymphocytes # (1.0-4.8) k/uL PT (10.0-12.5) sec INR (<1.2) APTT (22.0-30.0) sec D-Dimer (<0.60) mg/L FEU VBG pH 7.29 L (7.31-7.41) Sodium (137-145) mmol/L Chloride (98-107) mmol/L Carbon Dioxide (22-30) mmol/L BUN (9-20) mg/dL Creatinine (0.66-1.25) mg/dL Glucose (74-99) mg/dL POC Glucose (mg/dL) 148 H (70-110) mg/dL Plasma Lactic Acid Jakob 2.7 H* (0.7-2.0) mmol/L Calcium (8.4-10.2) mg/dL Ionized Calcium Enedina (4.5-5.3) mg/dL Phosphorus (2.5-4.5) mg/dL Magnesium (1.6-2.3) mg/dL Total Bilirubin (0.2-1.3) mg/dL AST (17-59) U/L ALT (4-49) U/L Total Protein (6.3-8.2) g/dL Albumin (3.5-5.0) g/dL 03/04/24 03/04/24 03/04/24 Range/Units 01:22 04:55 06:24 WBC (3.8-10.6) k/uL RBC (4.30-5.90) m/uL Hgb (13.0-17.5) gm/dL Hct (39.0-53.0) % Neutrophils # (1.3-7.7) k/uL Lymphocytes # (1.0-4.8) k/uL PT (10.0-12.5) sec INR (<1.2) APTT 60.5 H (22.0-30.0) sec D-Dimer (<0.60) mg/L FEU VBG pH (7.31-7.41) Sodium 123 L (137-145) mmol/L Chloride 92 L (98-107) mmol/L Carbon Dioxide 16 L (22-30) mmol/L BUN 114 H* (9-20) mg/dL Creatinine 4.11 H (0.66-1.25) mg/dL Glucose 222 H (74-99) mg/dL POC Glucose (mg/dL) 260 H (70-110) mg/dL Plasma Lactic Acid Jakob (0.7-2.0) mmol/L Calcium 6.3 L* (8.4-10.2) mg/dL Ionized Calcium Enedina (4.5-5.3) mg/dL Phosphorus (2.5-4.5) mg/dL Magnesium (1.6-2.3) mg/dL Total Bilirubin 1.4 H (0.2-1.3) mg/dL AST 256 H (17-59) U/L ALT 73 H (4-49) U/L Total Protein 4.7 L (6.3-8.2) g/dL Albumin 2.3 L (3.5-5.0) g/dL 03/04/24 03/04/24 03/04/24 Range/Units 06:46 06:46 08:14 WBC 14.9 H (3.8-10.6) k/uL RBC 3.83 L (4.30-5.90) m/uL Hgb 12.0 L (13.0-17.5) gm/dL Hct 36.0 L (39.0-53.0) % Neutrophils # 14.1 H (1.3-7.7) k/uL Lymphocytes # 0.3 L (1.0-4.8) k/uL PT (10.0-12.5) sec INR (<1.2) APTT (22.0-30.0) sec D-Dimer (<0.60) mg/L FEU VBG pH (7.31-7.41) Sodium 123 L (137-145) mmol/L Chloride 93 L (98-107) mmol/L Carbon Dioxide 16 L (22-30) mmol/L BUN 116 H* (9-20) mg/dL Creatinine 4.16 H (0.66-1.25) mg/dL Glucose 221 H (74-99) mg/dL POC Glucose (mg/dL) (70-110) mg/dL Plasma Lactic Acid Jakob (0.7-2.0) mmol/L Calcium 6.4 L* (8.4-10.2) mg/dL Ionized Calcium Enedina 3.7 L (4.5-5.3) mg/dL Phosphorus (2.5-4.5) mg/dL Magnesium (1.6-2.3) mg/dL Total Bilirubin (0.2-1.3) mg/dL AST (17-59) U/L ALT (4-49) U/L Total Protein (6.3-8.2) g/dL Albumin (3.5-5.0) g/dL 03/04/24 03/04/24 Range/Units 12:01 12:19 WBC (3.8-10.6) k/uL RBC (4.30-5.90) m/uL Hgb (13.0-17.5) gm/dL Hct (39.0-53.0) % Neutrophils # (1.3-7.7) k/uL Lymphocytes # (1.0-4.8) k/uL PT (10.0-12.5) sec INR (<1.2) APTT (22.0-30.0) sec D-Dimer (<0.60) mg/L FEU VBG pH (7.31-7.41) Sodium (137-145) mmol/L Chloride (98-107) mmol/L Carbon Dioxide (22-30) mmol/L BUN (9-20) mg/dL Creatinine (0.66-1.25) mg/dL Glucose (74-99) mg/dL POC Glucose (mg/dL) 296 H (70-110) mg/dL Plasma Lactic Acid Jakob (0.7-2.0) mmol/L Calcium (8.4-10.2) mg/dL Ionized Calcium Enedina (4.5-5.3) mg/dL Phosphorus 7.7 H (2.5-4.5) mg/dL Magnesium (1.6-2.3) mg/dL Total Bilirubin (0.2-1.3) mg/dL AST (17-59) U/L ALT (4-49) U/L Total Protein (6.3-8.2) g/dL Albumin (3.5-5.0) g/dL Assessment and Plan (1) Sepsis Current Visit: Yes Status: Acute Code(s): A41.9 - SEPSIS, UNSPECIFIED ORGANISM SNOMED Code(s): 61684317 (2) Candidiasis, intertrigo Current Visit: Yes Status: Acute Code(s): B37.2 - CANDIDIASIS OF SKIN AND NAIL SNOMED Code(s): 353677054 (3) Pneumonia Current Visit: Yes Status: Acute Code(s): J18.9 - PNEUMONIA, UNSPECIFIED ORGANISM SNOMED Code(s): 055362391 Plan: 1patient presented to hospital with weakness which is likely multifactorial patient did have features of sepsis with tachypnea tachycardia and hypotension requiring admission to ICU with evidence of pulm infiltrate suspicious for pneumonia will require for the gram-negative to the likely pathogen 2-patient also have a rash to the left axilla and groin area compatible with cutaneous candidiasis 3-try to obtain a sputum. Gram stain and culture 4-we will start the patient cefepime pending culture and nystatin powder to the left axilla and groin area We will follow on clinical condition and cultures to further adjust medication if needed Thank you for this consultation we will follow the patient along with you Dictation was produced using [employer] dictation software. please excuse any grammatical, word or spelling errors.
[2024-03-04] MEDS: CEFEPIME 2 GM in SODIUM CHLORIDE 0.9% 100 ML IVPB STA (22:37)
[2024-03-05 06:35] LABS: Glucose,Whole Blood 189 mg/dL (70-110)
[2024-03-05 06:49] LABS: Basophils # (A) 0.1 k/uL (0-0.2); Basophils % (A) 0 %; Eosinophils % (A) 0 %; HCT 36.2 % (39.0-53.0); HGB 11.8 gm/dL (13.0-17.5); Hypochromasia Slight; Lymphocytes # (A) 0.3 k/uL (1.0-4.8); Lymphocytes % (A) 2 %; MCH 31.5 pg (25.0-35.0); MCHC 32.6 g/dL (31.0-37.0); MCV 96.5 fL (80.0-100.0); Mean Platelet Volume 9.2; Monocytes # (A) 0.6 k/uL (0-1.0); Monocytes % (A) 4 %; Neutrophils # (A) 16.1 k/uL (1.3-7.7); Neutrophils % (A) 93 %; Platelet Count 287 k/uL (150-450); RBC 3.75 m/uL (4.30-5.90); RDW 15.5 % (11.5-15.5); WBC 17.3 k/uL (3.8-10.6)
[2024-03-05 07:12] LABS: Ionized Calcium 3.8 mg/dL (4.5-5.3)
--- NOTE | 2024-03-05 07:46 | XR ---
EXAMINATION TYPE: XR chest 1V portable DATE OF EXAM: 03/05/2024 HISTORY: Shortness of breath. COMPARISON: 02/25/2024 TECHNIQUE: Single view of the chest is submitted. FINDINGS: Demonstrated are scattered senescent parenchymal change. Perihilar and right upper lobe infiltrates persist unchanged. Correlate for acute pulmonary edema. In filtrates of other etiology not excluded. The heart is stable. Hilar and mediastinal structures are within normal limits. Degenerative changes are seen of the dorsal spine. IMPRESSION: 1. Perihilar and right upper lobe infiltrates persist unchanged. Correlate for acute pulmonary edema . Infiltrates of other etiology not excluded.
[2024-03-05] MEDS: CEFEPIME 1 GM in SODIUM CHLORIDE 0.9% 50 ML IVPB SCH (08:34)
[2024-03-05] MEDS: FAMOTIDINE 20 MG TAB PO SCH (08:34)
[2024-03-05 09:01] LABS: ALT 87 U/L (4-49); AST 241 U/L (17-59); Albumin 2.5 g/dL (3.5-5.0); Alkaline Phosphatase 85 U/L (38-126); Anion Gap 19 mmol/L; Bilirubin,Unconjugated 0.3 mg/dL (0.0-1.1); Calcium 6.9 mg/dL (8.4-10.2); Carbon Dioxide 14 mmol/L (22-30); Chloride 92 mmol/L (98-107); Glucose 183 mg/dL (74-99); Potassium 4.3 mmol/L (3.5-5.1); Sodium 125 mmol/L (137-145); Total Bilirubin 1.3 mg/dL (0.2-1.3); Total Protein 5.3 g/dL (6.3-8.2)
[2024-03-05 10:20] LABS: Blood Urea Nitrogen 137 mg/dL (9-20)
[2024-03-05 10:27] LABS: African American GFR (CKD) 15 (>60 ml/min/1.73 sqM); Non-African American GFR(CKD) 13 (>60 ml/min/1.73 sqM)
[2024-03-05 11:12] LABS: Glucose,Whole Blood 231 mg/dL (70-110)
[2024-03-05] MEDS: CALCIUM GLUCONATE IN NACL 2 GM in SALINE 1 100ML.BAG IVPB ONE (12:42)
--- NOTE | 2024-03-05 13:25 | P.PN ---
Subjective Patient is seen for follow-up for acute kidney injury. Patient remains short of breath. He is maintained on high flow oxygen with O2 sats at 93%. Renal function has worsened with serum creatinine at 4.5 and BUN at 137. urine output remains low at about 10 mL an hour. No response to high-dose IV push Lasix. Discussed renal replacement therapy with the patient given the worsening renal function and persistent volume overload. Patient is agreeable and we will proceed with vascular surgery consult for dialysis catheter placement. Objective - Vital Signs Vital signs: Vital Signs Temp 98.8 F 03/05/24 12:00 Pulse 120 H 03/05/24 13:00 Resp 20 03/05/24 13:00 BP 93/78 03/05/24 13:00 Pulse Ox 93 L 03/05/24 13:00 FiO2 82 03/05/24 12:00 Intake & Output 03/04/24 03/05/24 03/05/24 18:59 06:59 18:59 Intake Total 1244.171 584.406 932.044 Output Total 335 220 100 Balance 909.171 364.406 832.044 Weight 101.968 kg 99.3 kg Intake: IV 160 260 210 Calcium Gluconate in NaCl 100 2 gm In Saline 1 100ml. bag @ 100 mls/hr IVPB ONCE ONE Rx#:[id number] Cefepime 1 gm In Sodium 50 Chloride 0.9% 50 ml @ 12. 5 mls/hr IVPB Q12HR [facility] Rx#:[id number] Cefepime 2 gm In Sodium 100 Chloride 0.9% 100 ml @ 200 mls/hr IVPB ONCE STA Rx#:[id number] Invasive Line 1 30 Sodium Chloride 0.9% 1, 130 160 60 000 ml @ 10 mls/hr IV . Q24H [facility] Rx#:[id number] Intake, IV Titration 304.171 324.406 242.044 Amount Diltiazem 125 mg In 88.417 Sodium Chloride 0.9% 100 ml @ 5 MG/HR 5 mls/hr IV .Q24H [facility] Rx#:[id number] Heparin Sod,Pork in 0.45% 215.754 242.044 242.044 NaCl 25,000 unit In 0.45 % NaCl 1 250ml.bag @ 18 UNITS/KG/HR 17.146 mls/hr IV .[id number] [facility] Rx#: [id number] Norepinephrine 4 mg In 82.362 Sodium Chloride 0.9% 250 ml @ 0.03 MCG/KG/MIN 11. 655 mls/hr IV .[id number] [facility] Rx#:[id number] Oral 780 480 Output: Urine 335 220 100 Other: Voiding Method Indwelling Catheter Indwelling Catheter Indwelling Catheter # Voids 0 # Bowel Movements 0 - Exam patient is awake, he is short of breath Examination of the heart S1 and S2 Examination of the lungs decreased breath sounds at the bases Abdomen is soft distended Examination lower extremity shows significant edema - Labs CBC & Chem 7: 03/05/24 06:07 03/05/24 09:43 Labs: Abnormal Lab Results - Last 24 Hours (Table) 03/04/24 03/04/24 03/04/24 Range/Units 12:00 12:19 15:00 WBC (3.8-10.6) k/uL RBC (4.30-5.90) m/uL Hgb (13.0-17.5) gm/dL Hct (39.0-53.0) % Neutrophils # (1.3-7.7) k/uL Lymphocytes # (1.0-4.8) k/uL APTT (22.0-30.0) sec Sodium 124 L (137-145) mmol/L Potassium 3.4 L (3.5-5.1) mmol/L Chloride 92 L (98-107) mmol/L Carbon Dioxide 17 L (22-30) mmol/L BUN (9-20) mg/dL Creatinine (0.66-1.25) mg/dL Glucose (74-99) mg/dL POC Glucose (mg/dL) (70-110) mg/dL Hemoglobin A1c (<=6.0) % Calcium (8.4-10.2) mg/dL Ionized Calcium Enedina (4.5-5.3) mg/dL Phosphorus 7.7 H (2.5-4.5) mg/dL Delta Bilirubin (0.0-0.2) mg/dL AST (17-59) U/L ALT (4-49) U/L Total Protein (6.3-8.2) g/dL Albumin (3.5-5.0) g/dL Vitamin D 25-Hydroxy 7.2 L (30.0-100.0) ng/mL TSH 0.393 L (0.465-4.680) mIU/L Urine Protein Trace H (Negative) Urine Blood Moderate H (Negative) Ur Random Sodium (40-220) mmol/L 03/04/24 03/04/24 03/04/24 Range/Units 17:38 18:30 20:07 WBC (3.8-10.6) k/uL RBC (4.30-5.90) m/uL Hgb (13.0-17.5) gm/dL Hct (39.0-53.0) % Neutrophils # (1.3-7.7) k/uL Lymphocytes # (1.0-4.8) k/uL APTT (22.0-30.0) sec Sodium (137-145) mmol/L Potassium (3.5-5.1) mmol/L Chloride (98-107) mmol/L Carbon Dioxide (22-30) mmol/L BUN (9-20) mg/dL Creatinine (0.66-1.25) mg/dL Glucose (74-99) mg/dL POC Glucose (mg/dL) 267 H 308 H (70-110) mg/dL Hemoglobin A1c (<=6.0) % Calcium (8.4-10.2) mg/dL Ionized Calcium Enedina (4.5-5.3) mg/dL Phosphorus (2.5-4.5) mg/dL Delta Bilirubin (0.0-0.2) mg/dL AST (17-59) U/L ALT (4-49) U/L Total Protein (6.3-8.2) g/dL Albumin (3.5-5.0) g/dL Vitamin D 25-Hydroxy (30.0-100.0) ng/mL TSH (0.465-4.680) mIU/L Urine Protein (Negative) Urine Blood (Negative) Ur Random Sodium <20 L (40-220) mmol/L 03/05/24 03/05/24 03/05/24 Range/Units 06:07 06:07 06:07 WBC 17.3 H (3.8-10.6) k/uL RBC 3.75 L (4.30-5.90) m/uL Hgb 11.8 L (13.0-17.5) gm/dL Hct 36.2 L (39.0-53.0) % Neutrophils # 16.1 H (1.3-7.7) k/uL Lymphocytes # 0.3 L (1.0-4.8) k/uL APTT (22.0-30.0) sec Sodium 125 L (137-145) mmol/L Potassium (3.5-5.1) mmol/L Chloride 92 L (98-107) mmol/L Carbon Dioxide 14 L (22-30) mmol/L BUN (9-20) mg/dL Creatinine (0.66-1.25) mg/dL Glucose 183 H (74-99) mg/dL POC Glucose (mg/dL) (70-110) mg/dL Hemoglobin A1c 7.3 H (<=6.0) % Calcium 6.9 L (8.4-10.2) mg/dL Ionized Calcium Enedina 3.8 L (4.5-5.3) mg/dL Phosphorus (2.5-4.5) mg/dL Delta Bilirubin 1.0 H (0.0-0.2) mg/dL AST 241 H (17-59) U/L ALT 87 H (4-49) U/L Total Protein 5.3 L (6.3-8.2) g/dL Albumin 2.5 L (3.5-5.0) g/dL Vitamin D 25-Hydroxy (30.0-100.0) ng/mL TSH (0.465-4.680) mIU/L Urine Protein (Negative) Urine Blood (Negative) Ur Random Sodium (40-220) mmol/L 03/05/24 03/05/24 03/05/24 Range/Units 06:07 06:33 09:43 WBC (3.8-10.6) k/uL RBC (4.30-5.90) m/uL Hgb (13.0-17.5) gm/dL Hct (39.0-53.0) % Neutrophils # (1.3-7.7) k/uL Lymphocytes # (1.0-4.8) k/uL APTT 51.2 H (22.0-30.0) sec Sodium (137-145) mmol/L Potassium (3.5-5.1) mmol/L Chloride (98-107) mmol/L Carbon Dioxide (22-30) mmol/L BUN 137 H* (9-20) mg/dL Creatinine 4.53 H (0.66-1.25) mg/dL Glucose (74-99) mg/dL POC Glucose (mg/dL) 189 H (70-110) mg/dL Hemoglobin A1c (<=6.0) % Calcium (8.4-10.2) mg/dL Ionized Calcium Enedina (4.5-5.3) mg/dL Phosphorus (2.5-4.5) mg/dL Delta Bilirubin (0.0-0.2) mg/dL AST (17-59) U/L ALT (4-49) U/L Total Protein (6.3-8.2) g/dL Albumin (3.5-5.0) g/dL Vitamin D 25-Hydroxy (30.0-100.0) ng/mL TSH (0.465-4.680) mIU/L Urine Protein (Negative) Urine Blood (Negative) Ur Random Sodium (40-220) mmol/L 03/05/24 Range/Units 11:11 WBC (3.8-10.6) k/uL RBC (4.30-5.90) m/uL Hgb (13.0-17.5) gm/dL Hct (39.0-53.0) % Neutrophils # (1.3-7.7) k/uL Lymphocytes # (1.0-4.8) k/uL APTT (22.0-30.0) sec Sodium (137-145) mmol/L Potassium (3.5-5.1) mmol/L Chloride (98-107) mmol/L Carbon Dioxide (22-30) mmol/L BUN (9-20) mg/dL Creatinine (0.66-1.25) mg/dL Glucose (74-99) mg/dL POC Glucose (mg/dL) 231 H (70-110) mg/dL Hemoglobin A1c (<=6.0) % Calcium (8.4-10.2) mg/dL Ionized Calcium Enedina (4.5-5.3) mg/dL Phosphorus (2.5-4.5) mg/dL Delta Bilirubin (0.0-0.2) mg/dL AST (17-59) U/L ALT (4-49) U/L Total Protein (6.3-8.2) g/dL Albumin (3.5-5.0) g/dL Vitamin D 25-Hydroxy (30.0-100.0) ng/mL TSH (0.465-4.680) mIU/L Urine Protein (Negative) Urine Blood (Negative) Ur Random Sodium (40-220) mmol/L Microbiology - Last 24 Hours (Table) 03/03/24 18:44 Blood Culture - Preliminary Blood Assessment and Plan Assessment: 1. Acute kidney injury, ischemic ATN associated with low blood pressure, nonoliguric with unknown baseline renal function. UA shows trace protein and moderate blood and ultrasound of the kidneys shows no evidence of obstructive uropathy. Patient was also maintained on NSAIDs along with angiotensin receptor blockers at home, currently on hold. proceed with renal replacement therapy given the worsening renal function and severe volume overload and acute respiratory failure. 2. Hyponatremia, worsened with IV fluids. Possible underlying SIADH. Check urine osmolality and random urine sodium and continue off of IV fluids. Chest x-ray suggestive of CHF. 3. Anion gap metabolic acidosis associated with acute kidney injury and lactic acidosis. 4. Hypocalcemia, secondary to severe nutritional vitamin D deficiency. 25- hydroxy vitamin D level was 7 5. Acute hypoxic respiratory failure secondary to pneumonia and CHF 6. A. fib with RVR maintained on Cardizem drip 7. Type 2 diabetes Plan: consult vascular surgery for dialysis catheter placement. We will proceed with hemodialysis today. Repeat hemodialysis in a.m. repeat IV Lasix 80 mg add oral vitamin D supplementation
--- NOTE | 2024-03-05 13:54 | P.PN ---
Subjective Progress Note Date: 03/05/24 Principal diagnosis: Acute hypoxic respiratory failure secondary to acute diastolic congestive heart failure, possible pneumonia This is a 63-year-old male patient who is somewhat of a poor historian. He has not been compliant with his medications and follow-ups with a primary care provider. 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 He does have a history of atrial fibrillation anticoagulated with warfarin, hypertension. He came to the emergency room yesterday by EMS for shortness of breath and generalized weakness over the past several weeks. He was found to be hypotensive in the 70s systolically and improved into the 80s and 90s following a liter bolus. Chest x-ray lobe infiltrate. Increased pulmonary vascular congestion consistent with congestive heart failure. White count 14.9. Hemoglobin 12.0. Platelets 231. Sodium 123. Potassium 3.6. Bicarb 16. BUN 116. Creatinine 4.16. Glucose 221. proBNP 10,100. AST 256. ALT 73. Ultrasound the gallbladder within normal limits. He is seen today in consultation in the intensive care unit. He is currently awake and alert. Unsure of his home medications. Is a smoker. He is currently on heparin drip per weight-based protocol. Cardizem drip at 5 mg an hour. Normal saline at KVO. He was requiring BiPAP support currently 12/5 and 100% FiO2 alt ernating with 15 L of high flow nasal cannula. Patient was evaluated today on 03/05/2024, patient remained the ICU, overnight was on BiPAP, this morning patient is on Airvo at 85% and 60 L flow. Patient is marginal at best, his IV fluid is at 10 cc/h, patient is receiving cefepime empirically for presumptive pneumonia he is also on diuretics and bronchodilators for congestive heart failure and COPD. Chest x-ray is showing interstitial edema and left lower lobe consolidation seems to be a combined picture of CHF and the left lower lobe pneumonia renal functioning remains poor with a BUN of 137 creatinine 4.53. WBC count is 17.3 hemoglobin 11.8 PTT is 51.2, liver enzymes are noted to be a bit elevated. Objective - Vital Signs Vital signs: Vital Signs Temp 98.8 F 03/05/24 12:00 Pulse 120 H 03/05/24 13:00 Resp 20 03/05/24 13:00 BP 93/78 03/05/24 13:00 Pulse Ox 93 L 03/05/24 13:00 FiO2 82 03/05/24 12:00 Intake & Output 03/04/24 03/05/24 03/05/24 18:59 06:59 18:59 Intake Total 1244.171 584.406 932.044 Output Total 335 220 100 Balance 909.171 364.406 832.044 Weight 101.968 kg 99.3 kg Intake: IV 160 260 210 Calcium Gluconate in NaCl 100 2 gm In Saline 1 100ml. bag @ 100 mls/hr IVPB ONCE ONE Rx#:[id number] Cefepime 1 gm In Sodium 50 Chloride 0.9% 50 ml @ 12. 5 mls/hr IVPB Q12HR COUNTS INCLUDE 234 BEDS AT THE [facility] Rx#:[id number] Cefepime 2 gm In Sodium 100 Chloride 0.9% 100 ml @ 200 mls/hr IVPB ONCE STA Rx#:[id number] Invasive Line 1 30 Sodium Chloride 0.9% 1, 130 160 60 000 ml @ 10 mls/hr IV . Q24H COUNTS INCLUDE 234 BEDS AT THE [facility] Rx#:[id number] Intake, IV Titration 304.171 324.406 242.044 Amount Diltiazem 125 mg In 88.417 Sodium Chloride 0.9% 100 ml @ 5 MG/HR 5 mls/hr IV .Q24H COUNTS INCLUDE 234 BEDS AT THE [facility] Rx#:[id number] Heparin Sod,Pork in 0.45% 215.754 242.044 242.044 NaCl 25,000 unit In 0.45 % NaCl 1 250ml.bag @ 18 UNITS/KG/HR 17.146 mls/hr IV .[id number] COUNTS INCLUDE 234 BEDS AT THE [facility] Rx#: [id number] Norepinephrine 4 mg In 82.362 Sodium Chloride 0.9% 250 ml @ 0.03 MCG/KG/MIN 11. 655 mls/hr IV .[id number] COUNTS INCLUDE 234 BEDS AT THE [facility] Rx#:[id number] Oral 780 480 Output: Urine 335 220 100 Other: Voiding Method Indwelling Catheter Indwelling Catheter Indwelling Catheter # Voids 0 # Bowel Movements 0 - Exam GENERAL EXAM: Alert, disheveled, unkept 63-year-old male, Airvo with high FiO2 and high flow 5% / 60 L flow HEAD: Normocephalic. EYES: Normal reaction of pupils, equal size. NOSE: Clear with pink turbinates. THROAT: No erythema or exudates. NECK: No masses, no JVD. CHEST: No chest wall deformity. LUNGS: Crackles and rhonchi noted bilaterally CVS: S1 and S2 normal with no audible murmur, regular rhythm. ABDOMEN: Obese, no hepatosplenomegaly, normal bowel sounds, no guarding or rigidity. SKIN: No rashes CENTRAL NERVOUS SYSTEM: Alert oriented x 3 no gross focal deficits EXTREMITIES: Rash in the bilateral groins, there is 1-2+ peripheral edema. No clubbing, no cyanosis. Peripheral pulses are intact. - Labs CBC & Chem 7: 03/05/24 06:07 03/05/24 09:43 Labs: Abnormal Lab Results - Last 24 Hours (Table) 03/04/24 03/04/24 03/04/24 Range/Units 12:00 12:19 15:00 WBC (3.8-10.6) k/uL RBC (4.30-5.90) m/uL Hgb (13.0-17.5) gm/dL Hct (39.0-53.0) % Neutrophils # (1.3-7.7) k/uL Lymphocytes # (1.0-4.8) k/uL APTT (22.0-30.0) sec Sodium 124 L (137-145) mmol/L Potassium 3.4 L (3.5-5.1) mmol/L Chloride 92 L (98-107) mmol/L Carbon Dioxide 17 L (22-30) mmol/L BUN (9-20) mg/dL Creatinine (0.66-1.25) mg/dL Glucose (74-99) mg/dL POC Glucose (mg/dL) (70-110) mg/dL Hemoglobin A1c (<=6.0) % Calcium (8.4-10.2) mg/dL Ionized Calcium Enedina (4.5-5.3) mg/dL Delta Bilirubin (0.0-0.2) mg/dL AST (17-59) U/L ALT (4-49) U/L Total Protein (6.3-8.2) g/dL Albumin (3.5-5.0) g/dL Vitamin D 25-Hydroxy 7.2 L (30.0-100.0) ng/mL Urine Protein Trace H (Negative) Urine Blood Moderate H (Negative) Ur Random Sodium (40-220) mmol/L 03/04/24 03/04/24 03/04/24 Range/Units 17:38 18:30 20:07 WBC (3.8-10.6) k/uL RBC (4.30-5.90) m/uL Hgb (13.0-17.5) gm/dL Hct (39.0-53.0) % Neutrophils # (1.3-7.7) k/uL Lymphocytes # (1.0-4.8) k/uL APTT (22.0-30.0) sec Sodium (137-145) mmol/L Potassium (3.5-5.1) mmol/L Chloride (98-107) mmol/L Carbon Dioxide (22-30) mmol/L BUN (9-20) mg/dL Creatinine (0.66-1.25) mg/dL Glucose (74-99) mg/dL POC Glucose (mg/dL) 267 H 308 H (70-110) mg/dL Hemoglobin A1c (<=6.0) % Calcium (8.4-10.2) mg/dL Ionized Calcium Enedina (4.5-5.3) mg/dL Delta Bilirubin (0.0-0.2) mg/dL AST (17-59) U/L ALT (4-49) U/L Total Protein (6.3-8.2) g/dL Albumin (3.5-5.0) g/dL Vitamin D 25-Hydroxy (30.0-100.0) ng/mL Urine Protein (Negative) Urine Blood (Negative) Ur Random Sodium <20 L (40-220) mmol/L 03/05/24 03/05/24 03/05/24 Range/Units 06:07 06:07 06:07 WBC 17.3 H (3.8-10.6) k/uL RBC 3.75 L (4.30-5.90) m/uL Hgb 11.8 L (13.0-17.5) gm/dL Hct 36.2 L (39.0-53.0) % Neutrophils # 16.1 H (1.3-7.7) k/uL Lymphocytes # 0.3 L (1.0-4.8) k/uL APTT (22.0-30.0) sec Sodium 125 L (137-145) mmol/L Potassium (3.5-5.1) mmol/L Chloride 92 L (98-107) mmol/L Carbon Dioxide 14 L (22-30) mmol/L BUN (9-20) mg/dL Creatinine (0.66-1.25) mg/dL Glucose 183 H (74-99) mg/dL POC Glucose (mg/dL) (70-110) mg/dL Hemoglobin A1c 7.3 H (<=6.0) % Calcium 6.9 L (8.4-10.2) mg/dL Ionized Calcium Enedina 3.8 L (4.5-5.3) mg/dL Delta Bilirubin 1.0 H (0.0-0.2) mg/dL AST 241 H (17-59) U/L ALT 87 H (4-49) U/L Total Protein 5.3 L (6.3-8.2) g/dL Albumin 2.5 L (3.5-5.0) g/dL Vitamin D 25-Hydroxy (30.0-100.0) ng/mL Urine Protein (Negative) Urine Blood (Negative) Ur Random Sodium (40-220) mmol/L 03/05/24 03/05/24 03/05/24 Range/Units 06:07 06:33 09:43 WBC (3.8-10.6) k/uL RBC (4.30-5.90) m/uL Hgb (13.0-17.5) gm/dL Hct (39.0-53.0) % Neutrophils # (1.3-7.7) k/uL Lymphocytes # (1.0-4.8) k/uL APTT 51.2 H (22.0-30.0) sec Sodium (137-145) mmol/L Potassium (3.5-5.1) mmol/L Chloride (98-107) mmol/L Carbon Dioxide (22-30) mmol/L BUN 137 H* (9-20) mg/dL Creatinine 4.53 H (0.66-1.25) mg/dL Glucose (74-99) mg/dL POC Glucose (mg/dL) 189 H (70-110) mg/dL Hemoglobin A1c (<=6.0) % Calcium (8.4-10.2) mg/dL Ionized Calcium Enedina (4.5-5.3) mg/dL Delta Bilirubin (0.0-0.2) mg/dL AST (17-59) U/L ALT (4-49) U/L Total Protein (6.3-8.2) g/dL Albumin (3.5-5.0) g/dL Vitamin D 25-Hydroxy (30.0-100.0) ng/mL Urine Protein (Negative) Urine Blood (Negative) Ur Random Sodium (40-220) mmol/L 03/05/24 Range/Units 11:11 WBC (3.8-10.6) k/uL RBC (4.30-5.90) m/uL Hgb (13.0-17.5) gm/dL Hct (39.0-53.0) % Neutrophils # (1.3-7.7) k/uL Lymphocytes # (1.0-4.8) k/uL APTT (22.0-30.0) sec Sodium (137-145) mmol/L Potassium (3.5-5.1) mmol/L Chloride (98-107) mmol/L Carbon Dioxide (22-30) mmol/L BUN (9-20) mg/dL Creatinine (0.66-1.25) mg/dL Glucose (74-99) mg/dL POC Glucose (mg/dL) 231 H (70-110) mg/dL Hemoglobin A1c (<=6.0) % Calcium (8.4-10.2) mg/dL Ionized Calcium Enedina (4.5-5.3) mg/dL Delta Bilirubin (0.0-0.2) mg/dL AST (17-59) U/L ALT (4-49) U/L Total Protein (6.3-8.2) g/dL Albumin (3.5-5.0) g/dL Vitamin D 25-Hydroxy (30.0-100.0) ng/mL Urine Protein (Negative) Urine Blood (Negative) Ur Random Sodium (40-220) mmol/L Microbiology - Last 24 Hours (Table) 03/03/24 18:44 Blood Culture - Preliminary Blood Assessment and Plan Assessment: Impression: Acute hypoxemic respiratory failure, multifactorial suspect congestive heart failure, it is not clear whether this is diastolic or systolic in nature and underlying pneumonia Atrial fibrillation with rapid ventricular response, currently on a heparin drip, being addressed by cardiology. Acute kidney injury suspect secondary to dehydration, hypotension, suspect acute tubular necrosis Leukocytosis Hyponatremia Hyperglycemia Hypocalcemia Transaminitis Chronic tobacco dependence Poor medical compliance Recommendation: Based on the nephrology note, patient is being considered for hemodialysis today. Patient did receive Lasix 80 mg IV push. Continue to monitor in the ICU for now. Overall prognosis is extremely poor and guarded and the patient is critically ill GI and DVT prophylaxis Hemodynamic support if necessary Patient will remain in the ICU, and will continue to follow Time with Patient: Less than 30
--- NOTE | 2024-03-05 13:56 | P.GSCN ---
History of Present Illness History of present illness: 63-year-old gentleman patient was seen in intensive care unit for placement of urgent dialysis catheter. Patient has a acute respiratory failure shortness of breath. Creatinine is 4.5 BUN is 137 urine output hyponatremia Chest crackles bilateral breath sounds are reduced Abdomen soft nontender femoral 1+ bilateral Plan is placement of a dialysis catheter risk and complication discussed Past Medical History Past Medical History: Atrial Fibrillation, COPD, Hypertension, Pulmonary Embolus (PE), Thyroid Disorder Additional Past Medical History / Comment(s): PE, History of Any Multi-Drug Resistant Organisms: None Reported Past Surgical History: Joint Replacement, Tonsillectomy Additional Past Surgical History / Comment(s): Total Right knee replacement Past Anesthesia/Blood Transfusion Reactions: No Reported Reaction Past Psychological History: Anxiety, Depression Additional Psychological History / Comment(s): Current Smoking Status: Current every day smoker Past Alcohol Use History: None Reported Past Drug Use History: Marijuana Additional Drug Use History / Comment(s): Daily marijuana use for back pain. Per patient he did have history of opioid addiction that required methadone treatment Medications and Allergies Home Medications Medication Instructions Recorded Confirmed Type Losartan Potassium 100 mg PO HS 03/03/24 03/03/24 History Naproxen [Naprosyn] 500 mg PO HS 03/03/24 03/03/24 History Warfarin [Coumadin] 5 mg PO HS 03/03/24 03/03/24 History hydroCHLOROthiazide [Hydrodiuril] 25 mg PO HS 03/03/24 03/03/24 History traZODone HCL 100 mg PO HS 03/03/24 03/03/24 History Allergies Allergy/AdvReac Type Severity Reaction Status Date / Time bee venom protein (honey bee) Allergy Anaphylaxis Verified 03/03/24 18:44 Penicillins Allergy Unknown Verified 03/03/24 18:44 Surgical - Exam Vital Signs Pulse Resp Pulse Ox 69 24 97 03/03/24 17:15 03/03/24 17:15 03/03/24 17:15 Results - Labs 03/05/24 06:07 03/05/24 09:43 Abnormal Lab Results - Last 24 Hours (Table) 03/04/24 03/04/24 03/04/24 Range/Units 12:00 12:19 15:00 WBC (3.8-10.6) k/uL RBC (4.30-5.90) m/uL Hgb (13.0-17.5) gm/dL Hct (39.0-53.0) % Neutrophils # (1.3-7.7) k/uL Lymphocytes # (1.0-4.8) k/uL APTT (22.0-30.0) sec Sodium 124 L (137-145) mmol/L Potassium 3.4 L (3.5-5.1) mmol/L Chloride 92 L (98-107) mmol/L Carbon Dioxide 17 L (22-30) mmol/L BUN (9-20) mg/dL Creatinine (0.66-1.25) mg/dL Glucose (74-99) mg/dL POC Glucose (mg/dL) (70-110) mg/dL Hemoglobin A1c (<=6.0) % Calcium (8.4-10.2) mg/dL Ionized Calcium Enedina (4.5-5.3) mg/dL Delta Bilirubin (0.0-0.2) mg/dL AST (17-59) U/L ALT (4-49) U/L Total Protein (6.3-8.2) g/dL Albumin (3.5-5.0) g/dL Vitamin D 25-Hydroxy 7.2 L (30.0-100.0) ng/mL Urine Protein Trace H (Negative) Urine Blood Moderate H (Negative) Ur Random Sodium (40-220) mmol/L 03/04/24 03/04/24 03/04/24 Range/Units 17:38 18:30 20:07 WBC (3.8-10.6) k/uL RBC (4.30-5.90) m/uL Hgb (13.0-17.5) gm/dL Hct (39.0-53.0) % Neutrophils # (1.3-7.7) k/uL Lymphocytes # (1.0-4.8) k/uL APTT (22.0-30.0) sec Sodium (137-145) mmol/L Potassium (3.5-5.1) mmol/L Chloride (98-107) mmol/L Carbon Dioxide (22-30) mmol/L BUN (9-20) mg/dL Creatinine (0.66-1.25) mg/dL Glucose (74-99) mg/dL POC Glucose (mg/dL) 267 H 308 H (70-110) mg/dL Hemoglobin A1c (<=6.0) % Calcium (8.4-10.2) mg/dL Ionized Calcium Enedina (4.5-5.3) mg/dL Delta Bilirubin (0.0-0.2) mg/dL AST (17-59) U/L ALT (4-49) U/L Total Protein (6.3-8.2) g/dL Albumin (3.5-5.0) g/dL Vitamin D 25-Hydroxy (30.0-100.0) ng/mL Urine Protein (Negative) Urine Blood (Negative) Ur Random Sodium <20 L (40-220) mmol/L 03/05/24 03/05/24 03/05/24 Range/Units 06:07 06:07 06:07 WBC 17.3 H (3.8-10.6) k/uL RBC 3.75 L (4.30-5.90) m/uL Hgb 11.8 L (13.0-17.5) gm/dL Hct 36.2 L (39.0-53.0) % Neutrophils # 16.1 H (1.3-7.7) k/uL Lymphocytes # 0.3 L (1.0-4.8) k/uL APTT (22.0-30.0) sec Sodium 125 L (137-145) mmol/L Potassium (3.5-5.1) mmol/L Chloride 92 L (98-107) mmol/L Carbon Dioxide 14 L (22-30) mmol/L BUN (9-20) mg/dL Creatinine (0.66-1.25) mg/dL Glucose 183 H (74-99) mg/dL POC Glucose (mg/dL) (70-110) mg/dL Hemoglobin A1c 7.3 H (<=6.0) % Calcium 6.9 L (8.4-10.2) mg/dL Ionized Calcium Enedina 3.8 L (4.5-5.3) mg/dL Delta Bilirubin 1.0 H (0.0-0.2) mg/dL AST 241 H (17-59) U/L ALT 87 H (4-49) U/L Total Protein 5.3 L (6.3-8.2) g/dL Albumin 2.5 L (3.5-5.0) g/dL Vitamin D 25-Hydroxy (30.0-100.0) ng/mL Urine Protein (Negative) Urine Blood (Negative) Ur Random Sodium (40-220) mmol/L 03/05/24 03/05/24 03/05/24 Range/Units 06:07 06:33 09:43 WBC (3.8-10.6) k/uL RBC (4.30-5.90) m/uL Hgb (13.0-17.5) gm/dL Hct (39.0-53.0) % Neutrophils # (1.3-7.7) k/uL Lymphocytes # (1.0-4.8) k/uL APTT 51.2 H (22.0-30.0) sec Sodium (137-145) mmol/L Potassium (3.5-5.1) mmol/L Chloride (98-107) mmol/L Carbon Dioxide (22-30) mmol/L BUN 137 H* (9-20) mg/dL Creatinine 4.53 H (0.66-1.25) mg/dL Glucose (74-99) mg/dL POC Glucose (mg/dL) 189 H (70-110) mg/dL Hemoglobin A1c (<=6.0) % Calcium (8.4-10.2) mg/dL Ionized Calcium Enedina (4.5-5.3) mg/dL Delta Bilirubin (0.0-0.2) mg/dL AST (17-59) U/L ALT (4-49) U/L Total Protein (6.3-8.2) g/dL Albumin (3.5-5.0) g/dL Vitamin D 25-Hydroxy (30.0-100.0) ng/mL Urine Protein (Negative) Urine Blood (Negative) Ur Random Sodium (40-220) mmol/L 03/05/24 Range/Units 11:11 WBC (3.8-10.6) k/uL RBC (4.30-5.90) m/uL Hgb (13.0-17.5) gm/dL Hct (39.0-53.0) % Neutrophils # (1.3-7.7) k/uL Lymphocytes # (1.0-4.8) k/uL APTT (22.0-30.0) sec Sodium (137-145) mmol/L Potassium (3.5-5.1) mmol/L Chloride (98-107) mmol/L Carbon Dioxide (22-30) mmol/L BUN (9-20) mg/dL Creatinine (0.66-1.25) mg/dL Glucose (74-99) mg/dL POC Glucose (mg/dL) 231 H (70-110) mg/dL Hemoglobin A1c (<=6.0) % Calcium (8.4-10.2) mg/dL Ionized Calcium Enedina (4.5-5.3) mg/dL Delta Bilirubin (0.0-0.2) mg/dL AST (17-59) U/L ALT (4-49) U/L Total Protein (6.3-8.2) g/dL Albumin (3.5-5.0) g/dL Vitamin D 25-Hydroxy (30.0-100.0) ng/mL Urine Protein (Negative) Urine Blood (Negative) Ur Random Sodium (40-220) mmol/L Microbiology - Last 24 Hours (Table) 03/03/24 18:44 Blood Culture - Preliminary Blood Diabetes panel 03/04/24 03/05/24 03/05/24 Range/Units 15:00 06:07 06:07 Sodium 124 L 125 L (137-145) mmol/L Potassium 3.4 L 4.3 (3.5-5.1) mmol/L Chloride 92 L 92 L (98-107) mmol/L Carbon Dioxide 17 L 14 L (22-30) mmol/L BUN (9-20) mg/dL Creatinine (0.66-1.25) mg/dL Glucose 183 H (74-99) mg/dL Hemoglobin A1c 7.3 H (<=6.0) % Calcium 6.9 L (8.4-10.2) mg/dL AST 241 H (17-59) U/L ALT 87 H (4-49) U/L Alkaline Phosphatase 85 (38-126) U/L Total Protein 5.3 L (6.3-8.2) g/dL Albumin 2.5 L (3.5-5.0) g/dL 03/05/24 Range/Units 09:43 Sodium (137-145) mmol/L Potassium (3.5-5.1) mmol/L Chloride (98-107) mmol/L Carbon Dioxide (22-30) mmol/L BUN 137 H* (9-20) mg/dL Creatinine 4.53 H (0.66-1.25) mg/dL Glucose (74-99) mg/dL Hemoglobin A1c (<=6.0) % Calcium (8.4-10.2) mg/dL AST (17-59) U/L ALT (4-49) U/L Alkaline Phosphatase (38-126) U/L Total Protein (6.3-8.2) g/dL Albumin (3.5-5.0) g/dL Calcium panel 03/05/24 Range/Units 06:07 Calcium 6.9 L (8.4-10.2) mg/dL Ionized Calcium Enedian 3.8 L (4.5-5.3) mg/dL Albumin 2.5 L (3.5-5.0) g/dL Pituitary panel 03/04/24 03/05/24 03/05/24 Range/Units 15:00 06:07 09:43 Sodium 124 L 125 L (137-145) mmol/L Potassium 3.4 L 4.3 (3.5-5.1) mmol/L Chloride 92 L 92 L (98-107) mmol/L Carbon Dioxide 17 L 14 L (22-30) mmol/L BUN 137 H* (9-20) mg/dL Creatinine 4.53 H (0.66-1.25) mg/dL Glucose 183 H (74-99) mg/dL Calcium 6.9 L (8.4-10.2) mg/dL Adrenal panel 03/04/24 03/05/24 03/05/24 Range/Units 15:00 06:07 09:43 Sodium 124 L 125 L (137-145) mmol/L Potassium 3.4 L 4.3 (3.5-5.1) mmol/L Chloride 92 L 92 L (98-107) mmol/L Carbon Dioxide 17 L 14 L (22-30) mmol/L BUN 137 H* (9-20) mg/dL Creatinine 4.53 H (0.66-1.25) mg/dL Glucose 183 H (74-99) mg/dL Calcium 6.9 L (8.4-10.2) mg/dL Total Bilirubin 1.3 (0.2-1.3) mg/dL AST 241 H (17-59) U/L ALT 87 H (4-49) U/L Alkaline Phosphatase 85 (38-126) U/L Total Protein 5.3 L (6.3-8.2) g/dL Albumin 2.5 L (3.5-5.0) g/dL
--- NOTE | 2024-03-05 15:10 | CDI ---
Documentation Clarification Form Date: 03/05/2024 02:57:12 PM From: Ambreen Zepeda RN CCDS Phone: [phone] Admit Date: 03/03/2024 09:47:00 PM Patient Name: Juan Carlos Jung Visit Number: [id number] Discharge Date: ATTENTION: The Clinical Documentation Specialists (CDI) and [facility] Coding Staff appreciate your assistance in clarifying documentation. Please respond to the clarification below the line at the bottom and electronically sign. The CDI & [facility] Coding staff will review the response and follow-up if needed. Please note: Queries are made part of the Legal Health Record. If you have any questions, please contact the author of this message via ITS. Doctor: Alonzo E Sheet The patient has Sepsis documented in ID Consult 03/04. Based on this information and the findings below, is there an additional diagnosis that is clinically appropriate for this patient? History/Risk Factors: 63-year old male presents to the ED with dyspnea. Medical History: Afib, Hypothyroidism, PE, HTN and PE. 03/04, HP. Clinical Indicators: 03/03, WBC: 14.0 03/03, Lactic acid: 2.7 03/03, Blood cultures: No growth after 24 hours 03/03,18:13 Vitals signs: B/P 108/57, HR 130, RR 22, SpO2 90% 6L nasal cannula: 03/03 23:10 97.9F Axillary. Treatment: ID Consult: 03/04: Sepsispatient presented to hospital with weakness which is likely multifactorial patient did have features of sepsis with tachypnea tachycardia and hypotension requiring admission to ICU with evidence of pulm infiltrate suspicious for pneumonia will require for the gram-negative to the likely pathogen. Antibiotics: 03/03 Rocephin IVP x 1; 03/04 Cefepime IVPB x 1; 03/05 Cefepime IVPB x Q12H IV Bolus: 03/03 0.9NS 500cc IV Bolus x 1; 03/03 0.9NS 500cc IV Bolus x 1; Is there an additional diagnosis that is clinically appropriate for this patient? [ ] Sepsis, present on admission [ ] Septic Shock present on admission [ ] Other, please specify [ x ] Unable to determine SIRS Criteria: 2 or more of the following may indicate SIRS Temperature < 96.8F (36C) or > 101.0F (38.3C) Heart Rate > 90 bpm Respiratory Rate > 20 breaths/min or PaCO2 < 32 mmHg White Blood Cell Count > 12,000 or < 4,000 cells/mm3 or > 10% bands (Template Last Reviewed: August 2022) MTDD
[2024-03-05 16:20] LABS: Glucose,Whole Blood 297 mg/dL (70-110)
--- NOTE | 2024-03-05 17:18 | CA ---
Transthoracic Echo Report Name: Juan Carlos Jung Age: 63 Gender: M : 1960 Exam Date: 03/05/2024 08:08 Exam Location: [facility] Ht (in): 69 Wt (lb): 224 Ordering Physician: Aubrye Kathleen MD ([id number]) Attending/Referring Phys: Gas Manager Neelam Jimenez RDCS Procedure CPT: Indications: lv fxn Cardiac Hx: Technical Quality: Very technically difficult study Contrast 1: Definity Total Dose (mL): 2 Contrast 2: Total Dose (mL): MEASUREMENTS (Male / Female) Normal Values 2D ECHO LV Diastolic Diameter PLAX 4.6 cm 4.2 - 5.9 / 3.9 - 5.3 cm LV Systolic Diameter PLAX 3.9 cm IVS Diastolic Thickness 1.0 cm 0.6 - 1.0 / 0.6 - 0.9 cm LVPW Diastolic Thickness 0.9 cm 0.6 - 1.0 / 0.6 - 0.9 cm LV Relative Wall Thickness 0.4 LV Diastolic Volume MOD BP 98.4 cm??? 67 - 155 / 56 - 104 cm??? LV Systolic Volume MOD BP 41.2 cm??? 22 - 58 / 19 - 49 cm??? LV Ejection Fraction MOD BP 58.1 % >= 55 % LV Cardiac Index MOD BP 3041.0 cm???/min???m??? LV Diastolic Volume MOD 4C 103.3 cm??? LV Systolic Volume MOD 4C 37.2 cm??? LV Ejection Fraction MOD 4C 64.0 % LV Cardiac Index MOD 4C 3511.3 cm???/min???m??? LV Diastolic Length 4C 8.4 cm LV Systolic Length 4C 7.2 cm LV Diastolic Volume MOD 2C 87.2 cm??? LV Systolic Volume MOD 2C 42.7 cm??? LV Ejection Fraction MOD 2C 51.1 % LV Cardiac Index MOD 2C 2368.7 cm???/min???m??? LV Diastolic Length 2C 7.8 cm LV Systolic Length 2C 6.7 cm FINDINGS Left Ventricle Left ventricular ejection fraction is estimated at 50 %. Left ventricular cavity size normal. Left ventricular wall thickness normal. No obvious regional wall motion abnormalities. Right Ventricle Right ventricle not well visualized. Right Atrium Right atrium not well visualized. Left Atrium Left atrium not well visualized. Mitral Valve Mitral valve not well visualized. No mitral stenosis, regurgitation or prolapse. Aortic Valve Aortic valve not well visualized. No aortic valve stenosis or regurgitation. Tricuspid Valve Tricuspid valve not well visualized. Pulmonic Valve Pulmonic valve not well visualized. Pericardium No pericardial effusion. Aorta Aortic root and proximal ascending aorta not well visualized. CONCLUSIONS Ejection fraction was around 50% RV may be mildly enlarged Patient tachycardic Previewed by: Dr. Sergio Mota MD (Electronically Signed) Final Date: 05 March 2024 17:17
--- NOTE | 2024-03-05 17:28 | XR ---
EXAMINATION TYPE: XR chest 1V portable DATE OF EXAM: 03/05/2024 5:21 PM CLINICAL INDICATION:Male, 63 years old with history of hemodialysis cath insertion; [facility] COMPARISON: Chest radiographs from 03/05/2024. TECHNIQUE: XR chest 1V portable Frontal view of the chest. FINDINGS: Lungs/Pleura: Similar multifocal airspace opacities. No evidence of pneumothorax or pleural effusion. Pulmonary vascularity: Unremarkable. Heart/mediastinum: Cardiomediastinal silhouette is unremarkable. Musculoskeletal: No acute osseous pathology. Other findings: None Lines/Tubes: Right internal jugular central venous catheter with distal tip at the superior vena cava/superior. IMPRESSION: Right central venous catheter with tip its superior vena cava/superior cavoatrial junction. Multifocal airspace opacities possibly related to volume overload.
[2024-03-05] MEDS: HEPARIN SODIUM,PORCINE 5,000 UNIT/ML 1 ML VIAL SQ STA (17:50)
[2024-03-05] MEDS: FUROSEMIDE 10 MG/ML 10 ML VIAL IV STA (17:51)
[2024-03-05] MEDS: AMIODARONE 360 MG in DEXTROSE 5% IN WATER 200 ML IV ONE (17:51)
[2024-03-05] MEDS: DEXTROSE 5% IN WATER 100 ML with AMIODARONE 150 MG IV ONE (17:51)
[2024-03-05] MEDS: DEXMEDETOMIDINE/0.9% NACL(PMX) 400 MCG in EMPTY BAG 1 BAG IV SCH (18:55)
[2024-03-05] MEDS: LIDOCAINE 1% INJ 10MG/ML (20 ML MDV) SQ ONE (19:47)
[2024-03-05 20:47] LABS: Glucose,Whole Blood 221 mg/dL (70-110)
[2024-03-05] MEDS: propofoL 100 ML IV ONE (20:47)
--- NOTE | 2024-03-05 21:04 | XR ---
EXAMINATION TYPE: XR chest 1V portable DATE OF EXAM: 03/05/2024 8:46 PM CLINICAL INDICATION:Male, 63 years old with history of Tube placement; COMPARISON: Chest radiographs from 03/05/2024 TECHNIQUE: XR chest 1V portable Frontal view of the chest. FINDINGS: Lungs/Pleura: Similar multifocal airspace opacities. No evidence of pneumothorax or pleural effusion. Pulmonary vascularity: Unremarkable. Heart/mediastinum: Cardiomediastinal silhouette is enlarged and stable. Musculoskeletal: No acute osseous pathology. Other findings: None Lines/Tubes: Endotracheal tube with distal tip 5.3 cm above the ari. Nasogastric tube with distal tip projecting off the inferior aspect of the radiograph. Right internal jugular central venous catheter with distal tip at the cavoatrial junction. IMPRESSION: 1. Endotracheal tube in proper position. 2. The nasogastric tube distal tip is poorly visualized due to underpenetration. 3. Right central venous catheter with tip in the superior vena cava. 4. Similar multifocal airspace opacities.
[2024-03-05] MEDS: CHLORHEXIDINE GLUCONATE 15 ML CUP MUCOUS MEM SCH (21:26)
[2024-03-05 21:28] LABS: ABG Base Excess -9.3 mmol/L; ABG HCO3 19 mmol/L (21-25); ABG Oxygen Saturation 97.6 % (94-97); ABG PCO2 50 mmHg (35-45); ABG PO2 124 mmHg (83-108); ABG TCO2 21 mmol/L (19-24); Allen Test Performed? Yes
[2024-03-05 21:32] LABS: ABG PH 7.19 (7.35-7.45)
--- NOTE | 2024-03-05 21:59 | XR ---
EXAMINATION TYPE: XR chest 1V portable DATE OF EXAM: 03/05/2024 9:41 PM CLINICAL INDICATION:Male, 63 years old with history of OG tube placement; [facility] COMPARISON: Same day TECHNIQUE: XR chest 1V portable Frontal view of the chest. FINDINGS: Lungs/Pleura: Similar multifocal airspace opacities. No evidence of pneumothorax or pleural effusion. Pulmonary vascularity: Unremarkable. Heart/mediastinum: Cardiomediastinal silhouette is unremarkable. Musculoskeletal: No acute osseous pathology. Other findings: None Lines/Tubes: Stable position of endotracheal tube. Nasogastric tube with its distal tip and side-port projecting under the diaphragm. Stable right central venous catheter. IMPRESSION: Nasogastric tube projects over the gastric lumen in appropriate position. The remainder the exam is u nchanged.
[2024-03-05] MEDS: ERGOCALCIFEROL 1,250 MCG (50,000 IU) CAPSULE PO SCH (22:33)
--- NOTE | 2024-03-05 23:15 | OP ---
OPERATIVE REPORT DATE OF SERVICE : 03/05/2024 PREOPERATIVE DIAGNOSIS: Acute chronic renal failure. POSTOPERATIVE DIAGNOSIS: Acute chronic renal failure. PROCEDURE PERFORMED: Ultrasound-guided 16-cm dialysis catheter placed, right jugular approach. DESCRIPTION OF PROCEDURE: The patient was seen in intensive care unit. Right side of the neck and chest was prepped and drapes applied in a sterile manner. 1% lidocaine infiltrated. Ultrasound- guided micropuncture introduced in right jugular vein, micropuncture guidewire was passed. Then 4-[place] dilator was advanced on the top of the guidewire. Then we passed a regular guidewire without resistance and the dilator was advanced. Then a 16 cm catheter placed on top of the top of the guidewire. The guidewire was removed, flushed with heparin saline and was secured with 3-0 nylon. Dressings applied. The patient tolerated the procedure well. Recommended x-ray of the chest. MMFLAVIA / MABLE: [id number] / MTDD
[2024-03-05] MEDS: AMIODARONE 450 MG in DEXTROSE 5% IN WATER 250 ML IV SCH (23:36)
[2024-03-05] MEDS ORDERED: VASOPRESSIN 60 UNIT in SODIUM CHLORIDE 0.9% 150 ML IV SCH (23:45)
[2024-03-06 00:19] LABS: Hepatitis B Surface Antigen Nonreactive (Nonreactive)
[2024-03-06 00:39] LABS: Hepatitis B Surface AB- Quant 9.1 mIU/mL
[2024-03-06 00:39] LABS: Glucose,Whole Blood 230 mg/dL (70-110)
[2024-03-06 01:47] LABS: ABG Base Excess -10.4 mmol/L; ABG HCO3 18 mmol/L (21-25); ABG Oxygen Saturation 93.4 % (94-97); ABG PCO2 47 mmHg (35-45); ABG PO2 84 mmHg (83-108); ABG TCO2 19 mmol/L (19-24)
--- NOTE | 2024-03-06 01:59 | P.PCN ---
Date of Procedure: 03/06/24 Preoperative Diagnosis: Acute hypoxemic respiratory failure; hypotension Postoperative Diagnosis: Acute hypoxemic respiratory failure; hypotension Procedure(s) Performed: Insertion of a left wrist radial arterial line Indications for Procedure: Continuous blood pressure monitoring and frequent blood draws Description of Procedure: Informed consent was obtained, and a procedural timeout was performed . The patient was placed in supine position. The left radial region was prepared in a sterile fashion, and a sterile drape was applied. The left radial artery was palpated, easily cannulated, and a guidewire was placed. A Cook catheter was inserted over the guidewire, and the guidewire was removed. There was good arterial blood flow, good arterial waveform, and no complications. The line was secured with using a 3-0 silk suture.
[2024-03-06 02:08] LABS: ABG PH 7.19 (7.35-7.45); Allen Test Performed? no
[2024-03-06 05:20] LABS: ABG HCO3 17 mmol/L (21-25); ABG PCO2 45 mmHg (35-45); ABG PO2 73 mmHg (83-108); ABG TCO2 19 mmol/L (19-24)
[2024-03-06 05:21] LABS: ABG Base Excess -10.6 mmol/L; ABG Oxygen Saturation 90.3 % (94-97)
[2024-03-06 05:25] LABS: HCT 38.7 % (39.0-53.0); HGB 12.6 gm/dL (13.0-17.5); Hypochromasia Slight; MCH 31.3 pg (25.0-35.0); MCHC 32.5 g/dL (31.0-37.0); MCV 96.3 fL (80.0-100.0); Mean Platelet Volume 9.3; Platelet Count 286 k/uL (150-450); RBC 4.01 m/uL (4.30-5.90); RDW 15.8 % (11.5-15.5); WBC 31.8 k/uL (3.8-10.6)
[2024-03-06 05:44] LABS: Anion Gap 18 mmol/L; Carbon Dioxide 14 mmol/L (22-30); Chloride 94 mmol/L (98-107); Glucose 242 mg/dL (74-99); Potassium 4.1 mmol/L (3.5-5.1); Sodium 126 mmol/L (137-145)
[2024-03-06 05:50] LABS: ABG PH 7.19 (7.35-7.45); Allen Test Performed? no
[2024-03-06 05:50] LABS: African American GFR (CKD) 14 (>60 ml/min/1.73 sqM); Non-African American GFR(CKD) 12 (>60 ml/min/1.73 sqM)
[2024-03-06] MEDS: SODIUM BICARB 8.4% 50 ML SYR (1 MEQ/ML) IV STA ×2 (05:50→10:31)
[2024-03-06 05:54] LABS: Blood Urea Nitrogen 107 mg/dL (9-20)
[2024-03-06] MEDS: SODIUM BICARB 8.4% 50 ML SYR (1 MEQ/ML) ONE (06:11)
[2024-03-06 06:34] LABS: Glucose,Whole Blood 251 mg/dL (70-110)
[2024-03-06 07:20] LABS: Band Neutrophils % 26 %; Lymphocytes # (M) 0.64 k/uL (1.0-4.8); Neutrophils % (M) 73 %; Nucleated Red Blood Cells 0 /100 WBC (0-0); Total Cells Counted 200; Toxic Vacuolation Present
[2024-03-06 07:21] LABS: Toxic Granulation Present
--- NOTE | 2024-03-06 08:07 | XR ---
EXAMINATION TYPE: XR chest 1V portable DATE OF EXAM: 03/06/2024 COMPARISON: 03/05/2024 HISTORY: SOB, Follow Up FINDINGS: Indwelling tubes and catheters are unchanged. Left suprahilar infiltrate persists unchanged. Stable appearance of the cardio-mediastinal structures at this time. Pleural effusion unchanged. IMPRESSION: 1. Stable portable chest. Clinical correlation and follow up until resolution is recommended.
[2024-03-06 11:36] LABS: Glucose,Whole Blood 196 mg/dL (70-110)
[2024-03-06] MEDS: AMIODARONE 200 MG TAB PO SCH (11:55)
[2024-03-06] MEDS: INSULIN ASPART (NovoLOG) 100 UNIT/ML VIAL SQ SCH (11:55)
--- NOTE | 2024-03-06 13:10 | P.PN ---
Subjective Patient is seen for follow-up for acute kidney injury. Patient was started on renal replacement therapy on 03/05/2024 due to worsening renal function and severe volume overload. UF of 1.7 L yesterday. Patient was intubated yesterday. Currently maintained on high-dose levo fed. Patient is also maintained on amiodarone drip. FiO2 at 80%. Patient is seen on hemodialysis today. Patient did not tolerate any UF today. Objective - Vital Signs Vital signs: Vital Signs Temp 98.1 F 03/06/24 12:00 Pulse 81 03/06/24 12:00 Resp 28 H 03/06/24 12:00 BP 128/102 03/06/24 12:00 Pulse Ox 91 L 03/06/24 12:00 FiO2 80 03/06/24 12:00 Intake & Output 03/05/24 03/06/24 03/06/24 18:59 06:59 18:59 Intake Total 103.249 1293.826 714.523 Output Total 160 4035 30 Balance 822.044 -2557.174 684.523 Weight 99 kg Intake: IV 260 170 110 Calcium Gluconate in NaCl 100 2 gm In Saline 1 100ml. bag @ 100 mls/hr IVPB ONCE ONE Rx#:[id number] Cefepime 1 gm In Sodium 50 50 Chloride 0.9% 50 ml @ 12. 5 mls/hr IVPB Q12HR [facility] Rx#:[id number] Sodium Chloride 0.9% 1, 110 120 110 000 ml @ 10 mls/hr IV . Q24H [facility] Rx#:[id number] Intake, IV Titration 242.044 807.826 484.523 Amount Dexmedetomidine/0.9% NaCl 19.033 (Pmx) 400 mcg In Empty Bag 1 bag @ 0.2 MCG/KG/HR 4.965 mls/hr IV .Q20H9M [facility] Rx#:[id number] Heparin Sod,Pork in 0.45% 242.044 250 NaCl 25,000 unit In 0.45 % NaCl 1 250ml.bag @ 18 UNITS/KG/HR 17.146 mls/hr IV .[id number] [facility] Rx#: [id number] Norepinephrine 4 mg In 0 362.535 394.508 Sodium Chloride 0.9% 250 ml @ 0.03 MCG/KG/MIN 11. 655 mls/hr IV .[id number] [facility] Rx#:[id number] propofoL 1,000 mg In 176.258 90.015 Empty Bag 1 bag @ 15 MCG/ KG/MIN 8.937 mls/hr IV . [id number] [facility] Rx#:[id number] Oral 480 120 Hemodialysis 500 Output: Urine 160 35 30 Hemodialysis 2250 Hemodialysis Net Amount 1750 Other: Voiding Method Indwelling Catheter Indwelling Catheter Indwelling Catheter ABP, PAP, CO, CI - Last Documented Arterial Blood Pressure 113/71 - Exam patient is sedated and on the vent Examination of the heart S1 and S2 Examination of the lungs decreased breath sounds at the bases Abdomen is soft distended Examination lower extremity shows no significant edema - Labs CBC & Chem 7: 03/06/24 04:55 03/06/24 04:55 Labs: Abnormal Lab Results - Last 24 Hours (Table) 03/04/24 03/04/24 03/05/24 Range/Units 12:00 12:19 09:43 WBC (3.8-10.6) k/uL RBC (4.30-5.90) m/uL Hgb (13.0-17.5) gm/dL Hct (39.0-53.0) % RDW (11.5-15.5) % Neutrophils # (Manual) (1.3-7.7) k/uL Lymphocytes # (Manual) (1.0-4.8) k/uL APTT (22.0-30.0) sec ABG pH (7.35-7.45) ABG pCO2 (35-45) mmHg ABG pO2 (83-108) mmHg ABG HCO3 (21-25) mmol/L ABG O2 Saturation (94-97) % Sodium (137-145) mmol/L Chloride (98-107) mmol/L Carbon Dioxide (22-30) mmol/L BUN (9-20) mg/dL Creatinine (0.66-1.25) mg/dL Glucose (74-99) mg/dL POC Glucose (mg/dL) (70-110) mg/dL Osmolality 308 H (275-295) mOsm/kg Calcium (8.4-10.2) mg/dL Urine Osmolality 299 L (400-1100) mOsm/kg Hep Bs Antibody A (Negative) 03/05/24 03/05/24 03/05/24 Range/Units 16:19 20:46 21:25 WBC (3.8-10.6) k/uL RBC (4.30-5.90) m/uL Hgb (13.0-17.5) gm/dL Hct (39.0-53.0) % RDW (11.5-15.5) % Neutrophils # (Manual) (1.3-7.7) k/uL Lymphocytes # (Manual) (1.0-4.8) k/uL APTT (22.0-30.0) sec ABG pH 7.19 L* (7.35-7.45) ABG pCO2 50 H (35-45) mmHg ABG pO2 124 H (83-108) mmHg ABG HCO3 19 L (21-25) mmol/L ABG O2 Saturation 97.6 H (94-97) % Sodium (137-145) mmol/L Chloride (98-107) mmol/L Carbon Dioxide (22-30) mmol/L BUN (9-20) mg/dL Creatinine (0.66-1.25) mg/dL Glucose (74-99) mg/dL POC Glucose (mg/dL) 297 H 221 H (70-110) mg/dL Osmolality (275-295) mOsm/kg Calcium (8.4-10.2) mg/dL Urine Osmolality (400-1100) mOsm/kg Hep Bs Antibody (Negative) 03/06/24 03/06/24 03/06/24 Range/Units 00:38 01:44 04:55 WBC 31.8 H (3.8-10.6) k/uL RBC 4.01 L (4.30-5.90) m/uL Hgb 12.6 L (13.0-17.5) gm/dL Hct 38.7 L (39.0-53.0) % RDW 15.8 H (11.5-15.5) % Neutrophils # (Manual) 31.40 H (1.3-7.7) k/uL Lymphocytes # (Manual) 0.64 L (1.0-4.8) k/uL APTT (22.0-30.0) sec ABG pH 7.19 L* (7.35-7.45) ABG pCO2 47 H (35-45) mmHg ABG pO2 (83-108) mmHg ABG HCO3 18 L (21-25) mmol/L ABG O2 Saturation 93.4 L (94-97) % Sodium (137-145) mmol/L Chloride (98-107) mmol/L Carbon Dioxide (22-30) mmol/L BUN (9-20) mg/dL Creatinine (0.66-1.25) mg/dL Glucose (74-99) mg/dL POC Glucose (mg/dL) 230 H (70-110) mg/dL Osmolality (275-295) mOsm/kg Calcium (8.4-10.2) mg/dL Urine Osmolality (400-1100) mOsm/kg Hep Bs Antibody (Negative) 03/06/24 03/06/24 03/06/24 Range/Units 04:55 05:08 05:18 WBC (3.8-10.6) k/uL RBC (4.30-5.90) m/uL Hgb (13.0-17.5) gm/dL Hct (39.0-53.0) % RDW (11.5-15.5) % Neutrophils # (Manual) (1.3-7.7) k/uL Lymphocytes # (Manual) (1.0-4.8) k/uL APTT 64.1 H (22.0-30.0) sec ABG pH 7.19 L* (7.35-7.45) ABG pCO2 (35-45) mmHg ABG pO2 73 L (83-108) mmHg ABG HCO3 17 L (21-25) mmol/L ABG O2 Saturation 90.3 L (94-97) % Sodium 126 L (137-145) mmol/L Chloride 94 L (98-107) mmol/L Carbon Dioxide 14 L (22-30) mmol/L BUN 107 H* (9-20) mg/dL Creatinine 4.75 H (0.66-1.25) mg/dL Glucose 242 H (74-99) mg/dL POC Glucose (mg/dL) (70-110) mg/dL Osmolality (275-295) mOsm/kg Calcium 7.0 L (8.4-10.2) mg/dL Urine Osmolality (400-1100) mOsm/kg Hep Bs Antibody (Negative) 03/06/24 03/06/24 Range/Units 06:33 11:34 WBC (3.8-10.6) k/uL RBC (4.30-5.90) m/uL Hgb (13.0-17.5) gm/dL Hct (39.0-53.0) % RDW (11.5-15.5) % Neutrophils # (Manual) (1.3-7.7) k/uL Lymphocytes # (Manual) (1.0-4.8) k/uL APTT (22.0-30.0) sec ABG pH (7.35-7.45) ABG pCO2 (35-45) mmHg ABG pO2 (83-108) mmHg ABG HCO3 (21-25) mmol/L ABG O2 Saturation (94-97) % Sodium (137-145) mmol/L Chloride (98-107) mmol/L Carbon Dioxide (22-30) mmol/L BUN (9-20) mg/dL Creatinine (0.66-1.25) mg/dL Glucose (74-99) mg/dL POC Glucose (mg/dL) 251 H 196 H (70-110) mg/dL Osmolality (275-295) mOsm/kg Calcium (8.4-10.2) mg/dL Urine Osmolality (400-1100) mOsm/kg Hep Bs Antibody (Negative) Microbiology - Last 24 Hours (Table) 03/06/24 01:30 Gram Stain - Preliminary Sputum 03/03/24 18:44 Blood Culture - Preliminary Blood Assessment and Plan Assessment: 1. Acute kidney injury, ischemic ATN associated with low blood pressure, nonoliguric with unknown baseline renal function. UA shows trace protein and moderate blood and ultrasound of the kidneys shows no evidence of obstructive uropathy. Patient was also maintained on NSAIDs along with angiotensin receptor blockers at home, currently on hold. started renal replacement therapy on 03/05/2024 due to worsening renal function and severe volume overload and acute respiratory failure. 2. Hyponatremia, worsened with IV fluids. Possible underlying SIADH. currently hypervolemic, expect improvement with continued dialysis. 3. Anion gap metabolic acidosis associated with acute kidney injury and lactic acidosis. 4. Hypocalcemia, secondary to severe nutritional vitamin D deficiency. 25- hydroxy vitamin D level was 7 5. Acute hypoxic respiratory failure secondary to pneumonia and CHF, intubated. 6. A. fib with RVR maintained on amiodarone drip 7. Type 2 diabetes Plan: repeat hemodialysis in a.m. Increase UF as tolerated
--- NOTE | 2024-03-06 13:44 | P.PN ---
Subjective Progress Note Date: 03/06/24 Principal diagnosis: Acute hypoxic respiratory failure secondary to acute diastolic congestive heart failure, possible pneumonia This is a 63-year-old male patient who is somewhat of a poor historian. He has not been compliant with his medications and follow-ups with a primary care provider. He states he has not done well since his brother and chemist intern approximately 1 month ago. He does have a history of atrial fibrillation anticoagulated with warfarin, hypertension. He came to the emergency room yesterday by EMS for shortness of breath and generalized weakness over the past several weeks. He was found to be hypotensive in the 70s systolically and improved into the 80s and 90s following a liter bolus. Chest x-ray lobe infiltrate. Increased pulmonary vascular congestion consistent with congestive heart failure. White count 14.9. Hemoglobin 12.0. Platelets 231. Sodium 123. Potassium 3.6. Bicarb 16. BUN 116. Creatinine 4.16. Glucose 221. proBNP 10,100. AST 256. ALT 73. Ultrasound the gallbladder within normal limits. He is seen today in consultation in the intensive care unit. He is currently awake and alert. Unsure of his home medications. Is a smoker. He is currently on heparin drip per weight-based protocol. Cardizem drip at 5 mg an hour. Normal saline at KVO. He was requiring BiPAP support currently 12/5 and 100% FiO2 alt ernating with 15 L of high flow nasal cannula. Patient was evaluated today on 03/05/2024, patient remained the ICU, overnight was on BiPAP, this morning patient is on Airvo at 85% and 60 L flow. Patient is marginal at best, his IV fluid is at 10 cc/h, patient is receiving cefepime empirically for presumptive pneumonia he is also on diuretics and bronchodilators for congestive heart failure and COPD. Chest x-ray is showing interstitial edema and left lower lobe consolidation seems to be a combined picture of CHF and the left lower lobe pneumonia renal functioning remains poor with a BUN of 137 creatinine 4.53. WBC count is 17.3 hemoglobin 11.8 PTT is 51.2, liver enzymes are noted to be a bit elevated. Patient was evaluated today on 03/06/24, last night the patient developed worsening shortness of breath, extreme agitation and restlessness, could not keep his BiPAP, patient became more and more agitated and spite of trials of sedation with Precedex. Hence I recommended intubation and mechanical ventilation. Today the patient is on assist-control rate of 28 tidal volume 450 FiO2 80% and PEEP 8 increased up to 10. ABG is marginal with a pO2 of 73 pCO2 45 pH of 7.19 for which I recommended more bicarb, 1 amp of bicarb IV push, and the patient is undergoing hemodialysis which may help his metabolic acidosis. Patient is requiring epinephrine and 0.35 mcg/kg/min, yuko empirically on cefepime, cultures and sputum cultures are negative chest x-ray is showing slight improvement in his pulmonary edema continues to have some left lower lobe consolidation. Objective - Vital Signs Vital signs: Vital Signs Temp 98.1 F 03/06/24 12:00 Pulse 87 03/06/24 13:15 Resp 28 H 03/06/24 13:15 BP 140/112 03/06/24 13:15 Pulse Ox 93 L 03/06/24 13:15 FiO2 80 03/06/24 12:00 Intake & Output 03/05/24 03/06/24 03/06/24 18:59 06:59 18:59 Intake Total 658.241 0046.826 734.523 Output Total 160 4035 35 Balance 822.044 -2557.174 699.523 Weight 99 kg Intake: IV 260 170 110 Calcium Gluconate in NaCl 100 2 gm In Saline 1 100ml. bag @ 100 mls/hr IVPB ONCE ONE Rx#:[id number] Cefepime 1 gm In Sodium 50 50 Chloride 0.9% 50 ml @ 12. 5 mls/hr IVPB Q12HR [facility] Rx#:[id number] Sodium Chloride 0.9% 1, 110 120 110 000 ml @ 10 mls/hr IV . Q24H [facility] Rx#:[id number] Intake, IV Titration 242.044 807.826 484.523 Amount Dexmedetomidine/0.9% NaCl 19.033 (Pmx) 400 mcg In Empty Bag 1 bag @ 0.2 MCG/KG/HR 4.965 mls/hr IV .Q20H9M [facility] Rx#:[id number] Heparin Sod,Pork in 0.45% 242.044 250 NaCl 25,000 unit In 0.45 % NaCl 1 250ml.bag @ 18 UNITS/KG/HR 17.146 mls/hr IV .[id number] [facility] Rx#: [id number] Norepinephrine 4 mg In 0 362.535 394.508 Sodium Chloride 0.9% 250 ml @ 0.03 MCG/KG/MIN 11. 655 mls/hr IV .[id number] [facility] Rx#:[id number] propofoL 1,000 mg In 176.258 90.015 Empty Bag 1 bag @ 15 MCG/ KG/MIN 8.937 mls/hr IV . [id number] [facility] Rx#:[id number] Oral 480 120 Lipid 20 Sodium Chloride 0.9% 1, 20 000 ml @ 10 mls/hr IV . Q24H [facility] Rx#:[id number] Hemodialysis 500 Output: Urine 160 35 35 Hemodialysis 2250 Hemodialysis Net Amount 1750 Other: Voiding Method Indwelling Catheter Indwelling Catheter Indwelling Catheter ABP, PAP, CO, CI - Last Documented Arterial Blood Pressure 109/69 - Exam GENERAL EXAM: 63-year-old male, intubated and mechanically ventilated, sedated HEAD: Normocephalic. EYES: Normal reaction of pupils, equal size. NOSE: Clear with pink turbinates. THROAT: No erythema or exudates. NECK: No masses, no JVD. CHEST: No chest wall deformity. LUNGS: Crackles at the bases persist. Rhonchi persist. CVS: S1 and S2 normal with no audible murmur, regular rhythm. ABDOMEN: Obese, no hepatosplenomegaly, normal bowel sounds, no guarding or rigidity. SKIN: No rashes CENTRAL NERVOUS SYSTEM: Could not assess, patient is sedated. EXTREMITIES: Rash in the bilateral groins, there is 1-2+ peripheral edema. No clubbing, no cyanosis. Peripheral pulses are intact. - Labs CBC & Chem 7: 03/06/24 04:55 03/06/24 04:55 Labs: Abnormal Lab Results - Last 24 Hours (Table) 03/04/24 03/04/24 03/05/24 Range/Units 12:00 12:19 09:43 WBC (3.8-10.6) k/uL RBC (4.30-5.90) m/uL Hgb (13.0-17.5) gm/dL Hct (39.0-53.0) % RDW (11.5-15.5) % Neutrophils # (Manual) (1.3-7.7) k/uL Lymphocytes # (Manual) (1.0-4.8) k/uL APTT (22.0-30.0) sec ABG pH (7.35-7.45) ABG pCO2 (35-45) mmHg ABG pO2 (83-108) mmHg ABG HCO3 (21-25) mmol/L ABG O2 Saturation (94-97) % Sodium (137-145) mmol/L Chloride (98-107) mmol/L Carbon Dioxide (22-30) mmol/L BUN (9-20) mg/dL Creatinine (0.66-1.25) mg/dL Glucose (74-99) mg/dL POC Glucose (mg/dL) (70-110) mg/dL Osmolality 308 H (275-295) mOsm/kg Calcium (8.4-10.2) mg/dL Urine Osmolality 299 L (400-1100) mOsm/kg Hep Bs Antibody A (Negative) 03/05/24 03/05/24 03/05/24 Range/Units 16:19 20:46 21:25 WBC (3.8-10.6) k/uL RBC (4.30-5.90) m/uL Hgb (13.0-17.5) gm/dL Hct (39.0-53.0) % RDW (11.5-15.5) % Neutrophils # (Manual) (1.3-7.7) k/uL Lymphocytes # (Manual) (1.0-4.8) k/uL APTT (22.0-30.0) sec ABG pH 7.19 L* (7.35-7.45) ABG pCO2 50 H (35-45) mmHg ABG pO2 124 H (83-108) mmHg ABG HCO3 19 L (21-25) mmol/L ABG O2 Saturation 97.6 H (94-97) % Sodium (137-145) mmol/L Chloride (98-107) mmol/L Carbon Dioxide (22-30) mmol/L BUN (9-20) mg/dL Creatinine (0.66-1.25) mg/dL Glucose (74-99) mg/dL POC Glucose (mg/dL) 297 H 221 H (70-110) mg/dL Osmolality (275-295) mOsm/kg Calcium (8.4-10.2) mg/dL Urine Osmolality (400-1100) mOsm/kg Hep Bs Antibody (Negative) 03/06/24 03/06/24 03/06/24 Range/Units 00:38 01:44 04:55 WBC 31.8 H (3.8-10.6) k/uL RBC 4.01 L (4.30-5.90) m/uL Hgb 12.6 L (13.0-17.5) gm/dL Hct 38.7 L (39.0-53.0) % RDW 15.8 H (11.5-15.5) % Neutrophils # (Manual) 31.40 H (1.3-7.7) k/uL Lymphocytes # (Manual) 0.64 L (1.0-4.8) k/uL APTT (22.0-30.0) sec ABG pH 7.19 L* (7.35-7.45) ABG pCO2 47 H (35-45) mmHg ABG pO2 (83-108) mmHg ABG HCO3 18 L (21-25) mmol/L ABG O2 Saturation 93.4 L (94-97) % Sodium (137-145) mmol/L Chloride (98-107) mmol/L Carbon Dioxide (22-30) mmol/L BUN (9-20) mg/dL Creatinine (0.66-1.25) mg/dL Glucose (74-99) mg/dL POC Glucose (mg/dL) 230 H (70-110) mg/dL Osmolality (275-295) mOsm/kg Calcium (8.4-10.2) mg/dL Urine Osmolality (400-1100) mOsm/kg Hep Bs Antibody (Negative) 03/06/24 03/06/24 03/06/24 Range/Units 04:55 05:08 05:18 WBC (3.8-10.6) k/uL RBC (4.30-5.90) m/uL Hgb (13.0-17.5) gm/dL Hct (39.0-53.0) % RDW (11.5-15.5) % Neutrophils # (Manual) (1.3-7.7) k/uL Lymphocytes # (Manual) (1.0-4.8) k/uL APTT 64.1 H (22.0-30.0) sec ABG pH 7.19 L* (7.35-7.45) ABG pCO2 (35-45) mmHg ABG pO2 73 L (83-108) mmHg ABG HCO3 17 L (21-25) mmol/L ABG O2 Saturation 90.3 L (94-97) % Sodium 126 L (137-145) mmol/L Chloride 94 L (98-107) mmol/L Carbon Dioxide 14 L (22-30) mmol/L BUN 107 H* (9-20) mg/dL Creatinine 4.75 H (0.66-1.25) mg/dL Glucose 242 H (74-99) mg/dL POC Glucose (mg/dL) (70-110) mg/dL Osmolality (275-295) mOsm/kg Calcium 7.0 L (8.4-10.2) mg/dL Urine Osmolality (400-1100) mOsm/kg Hep Bs Antibody (Negative) 03/06/24 03/06/24 Range/Units 06:33 11:34 WBC (3.8-10.6) k/uL RBC (4.30-5.90) m/uL Hgb (13.0-17.5) gm/dL Hct (39.0-53.0) % RDW (11.5-15.5) % Neutrophils # (Manual) (1.3-7.7) k/uL Lymphocytes # (Manual) (1.0-4.8) k/uL APTT (22.0-30.0) sec ABG pH (7.35-7.45) ABG pCO2 (35-45) mmHg ABG pO2 (83-108) mmHg ABG HCO3 (21-25) mmol/L ABG O2 Saturation (94-97) % Sodium (137-145) mmol/L Chloride (98-107) mmol/L Carbon Dioxide (22-30) mmol/L BUN (9-20) mg/dL Creatinine (0.66-1.25) mg/dL Glucose (74-99) mg/dL POC Glucose (mg/dL) 251 H 196 H (70-110) mg/dL Osmolality (275-295) mOsm/kg Calcium (8.4-10.2) mg/dL Urine Osmolality (400-1100) mOsm/kg Hep Bs Antibody (Negative) Microbiology - Last 24 Hours (Table) 03/06/24 01:30 Gram Stain - Preliminary Sputum 03/03/24 18:44 Blood Culture - Preliminary Blood Assessment and Plan Assessment: Impression: Acute hypoxemic respiratory failure, multifactorial suspect acute diastolic congestive heart failure, possible underlying pneumonia, required intubation on 03/05/2024 Atrial fibrillation with rapid ventricular response, currently on a heparin dr ip, being addressed by cardiology. Acute kidney injury suspect secondary to dehydration, hypotension, suspect acute tubular necrosis, patient is on renal replacement therapy Acute metabolic acidosis secondary to acute kidney injury and acute renal failure Leukocytosis Hyponatremia Hyperglycemia Hypocalcemia Transaminitis Chronic tobacco dependence Poor medical compliance Recommendation: Continue ventilatory support Nutritional support Hemodynamic support Continue hemodialysis Continue bicarb via orogastric tube. 1 amp of bicarb was given earlier today. Continue to monitor daily electrolytes and daily labs Continue to monitor in the ICU for now. Patient remains critically ill and prognosis is guarded GI and DVT prophylaxis Continue hemodynamic support Critical care time is over 30 minutes Time with Patient: Greater than 30
--- NOTE | 2024-03-06 15:23 | P.PN ---
Subjective Progress Note Date: 03/05/24 Principal diagnosis: Reason for follow-up is pneumonia and cutaneous candidiasis Patient is a 63-year-old male with a past medical history significant for COPD hypertension atrial fibrillation PE thyroid disorder patient presenting to [facility] ER for evaluation of not feeling, patient did have features of sepsis requiring admission to the ICU. On today's evaluation that is 03/05/2024, the patient continues to be afebrile, the patient is on 15 L high flow nasal cannula oxygen breathing slightly comfortably no worsening cough vomiting or diarrhea has been reported did have worsening of his kidney function nephrology is considering initiation of dialysis Patient white count 17.3 creatinine is 4.53 Objective - Vital Signs Vital signs: Vital Signs Temp 98.8 F 03/05/24 12:00 Pulse 118 03/05/24 12:00 Resp 25 H 03/05/24 12:00 BP 107/63 03/05/24 12:00 Pulse Ox 93 L 03/05/24 12:00 FiO2 82 03/05/24 12:00 - Exam GENERAL DESCRIPTION: Middle-age male lying in bed in no distress RESPIRATORY SYSTEM: Unlabored breathing , decreased breath sounds at bases HEART: S1 S2 regular rate and rhythm , ABDOMEN: Soft , no tenderness EXTREMITIES: No edema feet - Labs CBC & Chem 7: 03/06/24 04:55 03/06/24 04:55 Labs: Abnormal Lab Results - Last 24 Hours (Table) 03/04/24 03/04/24 03/05/24 Range/Units 12:00 12:19 09:43 WBC (3.8-10.6) k/uL RBC (4.30-5.90) m/uL Hgb (13.0-17.5) gm/dL Hct (39.0-53.0) % RDW (11.5-15.5) % Neutrophils # (Manual) (1.3-7.7) k/uL Lymphocytes # (Manual) (1.0-4.8) k/uL APTT (22.0-30.0) sec ABG pH (7.35-7.45) ABG pCO2 (35-45) mmHg ABG pO2 (83-108) mmHg ABG HCO3 (21-25) mmol/L ABG O2 Saturation (94-97) % Sodium (137-145) mmol/L Chloride (98-107) mmol/L Carbon Dioxide (22-30) mmol/L BUN (9-20) mg/dL Creatinine (0.66-1.25) mg/dL Glucose (74-99) mg/dL POC Glucose (mg/dL) (70-110) mg/dL Osmolality 308 H (275-295) mOsm/kg Calcium (8.4-10.2) mg/dL Urine Osmolality 299 L (400-1100) mOsm/kg Hep Bs Antibody A (Negative) 03/05/24 03/05/24 03/05/24 Range/Units 16:19 20:46 21:25 WBC (3.8-10.6) k/uL RBC (4.30-5.90) m/uL Hgb (13.0-17.5) gm/dL Hct (39.0-53.0) % RDW (11.5-15.5) % Neutrophils # (Manual) (1.3-7.7) k/uL Lymphocytes # (Manual) (1.0-4.8) k/uL APTT (22.0-30.0) sec ABG pH 7.19 L* (7.35-7.45) ABG pCO2 50 H (35-45) mmHg ABG pO2 124 H (83-108) mmHg ABG HCO3 19 L (21-25) mmol/L ABG O2 Saturation 97.6 H (94-97) % Sodium (137-145) mmol/L Chloride (98-107) mmol/L Carbon Dioxide (22-30) mmol/L BUN (9-20) mg/dL Creatinine (0.66-1.25) mg/dL Glucose (74-99) mg/dL POC Glucose (mg/dL) 297 H 221 H (70-110) mg/dL Osmolality (275-295) mOsm/kg Calcium (8.4-10.2) mg/dL Urine Osmolality (400-1100) mOsm/kg Hep Bs Antibody (Negative) 03/06/24 03/06/24 03/06/24 Range/Units 00:38 01:44 04:55 WBC 31.8 H (3.8-10.6) k/uL RBC 4.01 L (4.30-5.90) m/uL Hgb 12.6 L (13.0-17.5) gm/dL Hct 38.7 L (39.0-53.0) % RDW 15.8 H (11.5-15.5) % Neutrophils # (Manual) 31.40 H (1.3-7.7) k/uL Lymphocytes # (Manual) 0.64 L (1.0-4.8) k/uL APTT (22.0-30.0) sec ABG pH 7.19 L* (7.35-7.45) ABG pCO2 47 H (35-45) mmHg ABG pO2 (83-108) mmHg ABG HCO3 18 L (21-25) mmol/L ABG O2 Saturation 93.4 L (94-97) % Sodium (137-145) mmol/L Chloride (98-107) mmol/L Carbon Dioxide (22-30) mmol/L BUN (9-20) mg/dL Creatinine (0.66-1.25) mg/dL Glucose (74-99) mg/dL POC Glucose (mg/dL) 230 H (70-110) mg/dL Osmolality (275-295) mOsm/kg Calcium (8.4-10.2) mg/dL Urine Osmolality (400-1100) mOsm/kg Hep Bs Antibody (Negative) 03/06/24 03/06/24 03/06/24 Range/Units 04:55 05:08 05:18 WBC (3.8-10.6) k/uL RBC (4.30-5.90) m/uL Hgb (13.0-17.5) gm/dL Hct (39.0-53.0) % RDW (11.5-15.5) % Neutrophils # (Manual) (1.3-7.7) k/uL Lymphocytes # (Manual) (1.0-4.8) k/uL APTT 64.1 H (22.0-30.0) sec ABG pH 7.19 L* (7.35-7.45) ABG pCO2 (35-45) mmHg ABG pO2 73 L (83-108) mmHg ABG HCO3 17 L (21-25) mmol/L ABG O2 Saturation 90.3 L (94-97) % Sodium 126 L (137-145) mmol/L Chloride 94 L (98-107) mmol/L Carbon Dioxide 14 L (22-30) mmol/L BUN 107 H* (9-20) mg/dL Creatinine 4.75 H (0.66-1.25) mg/dL Glucose 242 H (74-99) mg/dL POC Glucose (mg/dL) (70-110) mg/dL Osmolality (275-295) mOsm/kg Calcium 7.0 L (8.4-10.2) mg/dL Urine Osmolality (400-1100) mOsm/kg Hep Bs Antibody (Negative) 03/06/24 03/06/24 Range/Units 06:33 11:34 WBC (3.8-10.6) k/uL RBC (4.30-5.90) m/uL Hgb (13.0-17.5) gm/dL Hct (39.0-53.0) % RDW (11.5-15.5) % Neutrophils # (Manual) (1.3-7.7) k/uL Lymphocytes # (Manual) (1.0-4.8) k/uL APTT (22.0-30.0) sec ABG pH (7.35-7.45) ABG pCO2 (35-45) mmHg ABG pO2 (83-108) mmHg ABG HCO3 (21-25) mmol/L ABG O2 Saturation (94-97) % Sodium (137-145) mmol/L Chloride (98-107) mmol/L Carbon Dioxide (22-30) mmol/L BUN (9-20) mg/dL Creatinine (0.66-1.25) mg/dL Glucose (74-99) mg/dL POC Glucose (mg/dL) 251 H 196 H (70-110) mg/dL Osmolality (275-295) mOsm/kg Calcium (8.4-10.2) mg/dL Urine Osmolality (400-1100) mOsm/kg Hep Bs Antibody (Negative) Microbiology - Last 24 Hours (Table) 03/06/24 01:30 Gram Stain - Preliminary Sputum 03/03/24 18:44 Blood Culture - Preliminary Blood Assessment and Plan (1) Sepsis Current Visit: Yes Status: Acute Code(s): A41.9 - SEPSIS, UNSPECIFIED ORGANISM SNOMED Code(s): 50014911 (2) Candidiasis, intertrigo Current Visit: Yes Status: Acute Code(s): B37.2 - CANDIDIASIS OF SKIN AND NAIL SNOMED Code(s): 490370099 (3) Pneumonia Current Visit: Yes Status: Acute Code(s): J18.9 - PNEUMONIA, UNSPECIFIED ORGANISM SNOMED Code(s): 883565031 Plan: 1patient presented to hospital with weakness which is likely multifactorial patient did have features of sepsis with tachypnea tachycardia and hypotension requiring admission to ICU with evidence of pulm infiltrate suspicious for pneumonia will require for the gram-negative to the likely pathogen 2-patient also have a rash to the left axilla and groin area compatible with cutaneous candidiasis 3-try to obtain a sputum and Gram stain and culture 4-patient to continue with cefepime pending culture and nystatin powder to the left axilla and groin area Dictation was produced using [employer] dictation software. please excuse any grammatical, word or spelling errors. Time with Patient: Less than 30
--- NOTE | 2024-03-06 15:24 | P.PN ---
Subjective Progress Note Date: 03/06/24 Principal diagnosis: Reason for follow-up is pneumonia and cutaneous candidiasis Patient is a 63-year-old male with a past medical history significant for COPD hypertension atrial fibrillation PE thyroid disorder patient presenting to [facility] ER for evaluation of not feeling, patient did have features of sepsis requiring admission to the ICU.Patient got intubated because of worsening respiratory status on 03/05/2024 On today's evaluation that is 03/06/2024, Patient is afebrile patient is currently on room air and denies having any shortness of breath, the patient denies any chest pain or cough, the patient denies any nausea vomiting did not have any abdominal pain and no diarrhea. Patient white count is up to 31.8 creatinine is 4.75 blood and sputum cultures currently pending Objective - Vital Signs Vital signs: Vital Signs Temp 98.1 F 03/06/24 12:00 Pulse 81 03/06/24 12:00 Resp 28 H 03/06/24 12:00 BP 128/102 03/06/24 12:00 Pulse Ox 91 L 03/06/24 12:00 FiO2 80 03/06/24 12:00 Intake & Output 03/05/24 03/06/24 03/06/24 18:59 06:59 18:59 Intake Total 806.065 7389.826 714.523 Output Total 160 4035 30 Balance 822.044 -2557.174 684.523 Weight 99 kg Intake: IV 260 170 110 Calcium Gluconate in NaCl 100 2 gm In Saline 1 100ml. bag @ 100 mls/hr IVPB ONCE ONE Rx#:[id number] Cefepime 1 gm In Sodium 50 50 Chloride 0.9% 50 ml @ 12. 5 mls/hr IVPB Q12HR VICTOR M Rx#:[id number] Sodium Chloride 0.9% 1, 110 120 110 000 ml @ 10 mls/hr IV . Q24H VICTOR M Rx#:[id number] Intake, IV Titration 242.044 807.826 484.523 Amount Dexmedetomidine/0.9% NaCl 19.033 (Pmx) 400 mcg In Empty Bag 1 bag @ 0.2 MCG/KG/HR 4.965 mls/hr IV .Q20H9M VICTOR M Rx#:[id number] Heparin Sod,Pork in 0.45% 242.044 250 NaCl 25,000 unit In 0.45 % NaCl 1 250ml.bag @ 18 UNITS/KG/HR 17.146 mls/hr IV .[id number] VICTOR M Rx#: [id number] Norepinephrine 4 mg In 0 362.535 394.508 Sodium Chloride 0.9% 250 ml @ 0.03 MCG/KG/MIN 11. 655 mls/hr IV .[id number] VICTOR M Rx#:[id number] propofoL 1,000 mg In 176.258 90.015 Empty Bag 1 bag @ 15 MCG/ KG/MIN 8.937 mls/hr IV . [id number] VICTOR M Rx#:[id number] Oral 480 120 Hemodialysis 500 Output: Urine 160 35 30 Hemodialysis 2250 Hemodialysis Net Amount 1750 Other: Voiding Method Indwelling Catheter Indwelling Catheter Indwelling Catheter ABP, PAP, CO, CI - Last Documented Arterial Blood Pressure 113/71 - Exam GENERAL DESCRIPTION: Middle-age male intubated on the vent RESPIRATORY SYSTEM: Unlabored breathing , decreased breath sounds at bases HEART: S1 S2 regular rate and rhythm , ABDOMEN: Soft , no tenderness EXTREMITIES: No edema feet - Labs CBC & Chem 7: 03/06/24 04:55 03/06/24 04:55 Labs: Abnormal Lab Results - Last 24 Hours (Table) 03/04/24 03/04/24 03/05/24 Range/Units 12:00 12:19 09:43 WBC (3.8-10.6) k/uL RBC (4.30-5.90) m/uL Hgb (13.0-17.5) gm/dL Hct (39.0-53.0) % RDW (11.5-15.5) % Neutrophils # (Manual) (1.3-7.7) k/uL Lymphocytes # (Manual) (1.0-4.8) k/uL APTT (22.0-30.0) sec ABG pH (7.35-7.45) ABG pCO2 (35-45) mmHg ABG pO2 (83-108) mmHg ABG HCO3 (21-25) mmol/L ABG O2 Saturation (94-97) % Sodium (137-145) mmol/L Chloride (98-107) mmol/L Carbon Dioxide (22-30) mmol/L BUN (9-20) mg/dL Creatinine (0.66-1.25) mg/dL Glucose (74-99) mg/dL POC Glucose (mg/dL) (70-110) mg/dL Osmolality 308 H (275-295) mOsm/kg Calcium (8.4-10.2) mg/dL Urine Osmolality 299 L (400-1100) mOsm/kg Hep Bs Antibody A (Negative) 03/05/24 03/05/24 03/05/24 Range/Units 16:19 20:46 21:25 WBC (3.8-10.6) k/uL RBC (4.30-5.90) m/uL Hgb (13.0-17.5) gm/dL Hct (39.0-53.0) % RDW (11.5-15.5) % Neutrophils # (Manual) (1.3-7.7) k/uL Lymphocytes # (Manual) (1.0-4.8) k/uL APTT (22.0-30.0) sec ABG pH 7.19 L* (7.35-7.45) ABG pCO2 50 H (35-45) mmHg ABG pO2 124 H (83-108) mmHg ABG HCO3 19 L (21-25) mmol/L ABG O2 Saturation 97.6 H (94-97) % Sodium (137-145) mmol/L Chloride (98-107) mmol/L Carbon Dioxide (22-30) mmol/L BUN (9-20) mg/dL Creatinine (0.66-1.25) mg/dL Glucose (74-99) mg/dL POC Glucose (mg/dL) 297 H 221 H (70-110) mg/dL Osmolality (275-295) mOsm/kg Calcium (8.4-10.2) mg/dL Urine Osmolality (400-1100) mOsm/kg Hep Bs Antibody (Negative) 03/06/24 03/06/24 03/06/24 Range/Units 00:38 01:44 04:55 WBC 31.8 H (3.8-10.6) k/uL RBC 4.01 L (4.30-5.90) m/uL Hgb 12.6 L (13.0-17.5) gm/dL Hct 38.7 L (39.0-53.0) % RDW 15.8 H (11.5-15.5) % Neutrophils # (Manual) 31.40 H (1.3-7.7) k/uL Lymphocytes # (Manual) 0.64 L (1.0-4.8) k/uL APTT (22.0-30.0) sec ABG pH 7.19 L* (7.35-7.45) ABG pCO2 47 H (35-45) mmHg ABG pO2 (83-108) mmHg ABG HCO3 18 L (21-25) mmol/L ABG O2 Saturation 93.4 L (94-97) % Sodium (137-145) mmol/L Chloride (98-107) mmol/L Carbon Dioxide (22-30) mmol/L BUN (9-20) mg/dL Creatinine (0.66-1.25) mg/dL Glucose (74-99) mg/dL POC Glucose (mg/dL) 230 H (70-110) mg/dL Osmolality (275-295) mOsm/kg Calcium (8.4-10.2) mg/dL Urine Osmolality (400-1100) mOsm/kg Hep Bs Antibody (Negative) 03/06/24 03/06/24 03/06/24 Range/Units 04:55 05:08 05:18 WBC (3.8-10.6) k/uL RBC (4.30-5.90) m/uL Hgb (13.0-17.5) gm/dL Hct (39.0-53.0) % RDW (11.5-15.5) % Neutrophils # (Manual) (1.3-7.7) k/uL Lymphocytes # (Manual) (1.0-4.8) k/uL APTT 64.1 H (22.0-30.0) sec ABG pH 7.19 L* (7.35-7.45) ABG pCO2 (35-45) mmHg ABG pO2 73 L (83-108) mmHg ABG HCO3 17 L (21-25) mmol/L ABG O2 Saturation 90.3 L (94-97) % Sodium 126 L (137-145) mmol/L Chloride 94 L (98-107) mmol/L Carbon Dioxide 14 L (22-30) mmol/L BUN 107 H* (9-20) mg/dL Creatinine 4.75 H (0.66-1.25) mg/dL Glucose 242 H (74-99) mg/dL POC Glucose (mg/dL) (70-110) mg/dL Osmolality (275-295) mOsm/kg Calcium 7.0 L (8.4-10.2) mg/dL Urine Osmolality (400-1100) mOsm/kg Hep Bs Antibody (Negative) 03/06/24 03/06/24 Range/Units 06:33 11:34 WBC (3.8-10.6) k/uL RBC (4.30-5.90) m/uL Hgb (13.0-17.5) gm/dL Hct (39.0-53.0) % RDW (11.5-15.5) % Neutrophils # (Manual) (1.3-7.7) k/uL Lymphocytes # (Manual) (1.0-4.8) k/uL APTT (22.0-30.0) sec ABG pH (7.35-7.45) ABG pCO2 (35-45) mmHg ABG pO2 (83-108) mmHg ABG HCO3 (21-25) mmol/L ABG O2 Saturation (94-97) % Sodium (137-145) mmol/L Chloride (98-107) mmol/L Carbon Dioxide (22-30) mmol/L BUN (9-20) mg/dL Creatinine (0.66-1.25) mg/dL Glucose (74-99) mg/dL POC Glucose (mg/dL) 251 H 196 H (70-110) mg/dL Osmolality (275-295) mOsm/kg Calcium (8.4-10.2) mg/dL Urine Osmolality (400-1100) mOsm/kg Hep Bs Antibody (Negative) Microbiology - Last 24 Hours (Table) 03/06/24 01:30 Gram Stain - Preliminary Sputum 03/03/24 18:44 Blood Culture - Preliminary Blood Assessment and Plan (1) Sepsis Current Visit: Yes Status: Acute Code(s): A41.9 - SEPSIS, UNSPECIFIED ORGANISM SNOMED Code(s): 88839766 (2) Candidiasis, intertrigo Current Visit: Yes Status: Acute Code(s): B37.2 - CANDIDIASIS OF SKIN AND NAIL SNOMED Code(s): 985222282 (3) Pneumonia Current Visit: Yes Status: Acute Code(s): J18.9 - PNEUMONIA, UNSPECIFIED ORGANISM SNOMED Code(s): 989985773 Plan: 1patient presented to hospital with weakness which is likely multifactorial patient did have features of sepsis with tachypnea tachycardia and hypotension requiring admission to ICU with evidence of pulm infiltrate suspicious for pneum onia will require for the gram-negative to the likely pathogen 2-patient also have a rash to the left axilla and groin area compatible with cutaneous candidiasis 3-sputum cultures have been obtained which are currently pending blood cultures are pending 4-patient did have worsening of white count possible steroid related we will monitor closely continue cefepime adjust antibiotic further on the basis of culture Dictation was produced using [employer] dictation software. please excuse any grammatical, word or spelling errors. Time with Patient: Less than 30
[2024-03-06] MEDS: SODIUM BICARBONATE TAB 650 MG TAB PO SCH (16:23)
[2024-03-06 17:12] LABS: Glucose,Whole Blood 208 mg/dL (70-110)
--- NOTE | 2024-03-06 21:20 | P.PN ---
Subjective Progress Note Date: 03/06/24 Synopsis The patient is a 63-year-old gentleman who requested to see the intensive care unit. The patient somewhat is poor historian. The patient does have a past medical history significant for hypertension and also history of atrial fibrillation not on any anticoagulation. No history of coronary artery disease or congestive heart failure. The patient presented to the hospital complaining of progressive weakness for the last several weeks. Beside that he has been experiencing progressive dyspnea. No symptoms of chest pain or chest discomfort or dizziness or lightheadedness or any presyncope or syncope. He was found to be hypoxic in the emergency department and he was started on BiPAP and admitted to the intensive care unit. Also he was found to be in atrial fibrillation with a slightly uncontrolled heart rate. He is known to have history of paroxysmal atrial fibrillation not on any anticoagulation. Also further investigation performed including blood work showed severely abnormal creatinine which was around 5. Nephrology is on the case. The patient is not aware of any prior hi story of chronic kidney disease. The EKG showed atrial fibrillation with heart rate around 110 bpm with diffuse nonspecific ST and T wave abnormalities. The pressure has been soft with a systolic pressure in the 90s. Currently he is not on any vasopressors. Also he stated function test came to be abnormal which is likely secondary to hypotension. The physical examination is remarkable for irr egular rhythm with a systolic murmur at the right and left upper sternal border and bilateral rhonchi and wheezing as well as no edema was noted in the lower extremities. March 05, 2024 Continues to have minimal urine output requiring hemodialysis support. Patient is requiring norepinephrine to support his blood pressure. Minimal fluid was removed during hemodialysis session today Continues to be in atrial fibrillation with RVR Assessment Acute hypoxic respiratory failure likely to be multifactorial Possible underlying pneumonia Heart failure/fluid overload Acute renal failure Atrial fibrillation with uncontrolled heart rate Obesity Plan Start the patient on small dose of beta-linnette with metoprolol 12.5 mg p.o. twice daily Continue IV heparin drip Await echocardiogram findings Objective - Vital Signs Vital signs: Vital Signs Temp 97.3 F L 03/06/24 16:00 Pulse 110 H 03/06/24 21:14 Resp 28 H 03/06/24 19:30 BP 116/70 03/06/24 14:00 Pulse Ox 91 L 03/06/24 19:30 FiO2 100 03/06/24 21:04 Intake & Output 03/06/24 03/06/24 03/07/24 06:59 18:59 06:59 Intake Total 6941.037 3422.204 269.474 Output Total 4035 805 5 Balance -2557.174 1468.204 264.474 Weight 99 kg Intake: IV 170 280 20 Cefepime 1 gm In Sodium 50 50 Chloride 0.9% 50 ml @ 12. 5 mls/hr IVPB Q12HR VICTOR M Rx#:[id number] Sodium Chloride 0.9% 1, 120 230 20 000 ml @ 10 mls/hr IV . Q24H VICTOR M Rx#:[id number] Intake, IV Titration 180.278 9958.204 249.474 Amount Dexmedetomidine/0.9% NaCl 19.033 (Pmx) 400 mcg In Empty Bag 1 bag @ 0.2 MCG/KG/HR 4.965 mls/hr IV .Q20H9M VICTOR M Rx#:[id number] Heparin Sod,Pork in 0.45% 250 249.474 NaCl 25,000 unit In 0.45 % NaCl 1 250ml.bag @ 18 UNITS/KG/HR 17.146 mls/hr IV .[id number] VICTOR M Rx#: [id number] Norepinephrine 4 mg In 362.535 833.189 Sodium Chloride 0.9% 250 ml @ 0.03 MCG/KG/MIN 11. 655 mls/hr IV .[id number] VICTOR M Rx#:[id number] propofoL 1,000 mg In 176.258 290.015 Empty Bag 1 bag @ 15 MCG/ KG/MIN 8.937 mls/hr IV . [id number] VICTOR M Rx#:[id number] Oral 120 Hemodialysis 500 750 Output: Urine 35 55 5 Hemodialysis 2250 160 Hemodialysis Net Amount 1750 590 Other: Voiding Method Indwelling Catheter Indwelling Catheter ABP, PAP, CO, CI - Last Documented Arterial Blood Pressure 101/64 - Labs CBC & Chem 7: 03/06/24 04:55 03/06/24 04:55 Labs: Abnormal Lab Results - Last 24 Hours (Table) 03/04/24 03/04/24 03/05/24 Range/Units 12:00 12:19 09:43 WBC (3.8-10.6) k/uL RBC (4.30-5.90) m/uL Hgb (13.0-17.5) gm/dL Hct (39.0-53.0) % RDW (11.5-15.5) % Neutrophils # (Manual) (1.3-7.7) k/uL Lymphocytes # (Manual) (1.0-4.8) k/uL APTT (22.0-30.0) sec ABG pH (7.35-7.45) ABG pCO2 (35-45) mmHg ABG pO2 (83-108) mmHg ABG HCO3 (21-25) mmol/L ABG O2 Saturation (94-97) % Sodium (137-145) mmol/L Chloride (98-107) mmol/L Carbon Dioxide (22-30) mmol/L BUN (9-20) mg/dL Creatinine (0.66-1.25) mg/dL Glucose (74-99) mg/dL POC Glucose (mg/dL) (70-110) mg/dL Osmolality 308 H (275-295) mOsm/kg Calcium (8.4-10.2) mg/dL Urine Osmolality 299 L (400-1100) mOsm/kg Hep Bs Antibody A (Negative) 03/05/24 03/06/24 03/06/24 Range/Units 21:25 00:38 01:44 WBC (3.8-10.6) k/uL RBC (4.30-5.90) m/uL Hgb (13.0-17.5) gm/dL Hct (39.0-53.0) % RDW (11.5-15.5) % Neutrophils # (Manual) (1.3-7.7) k/uL Lymphocytes # (Manual) (1.0-4.8) k/uL APTT (22.0-30.0) sec ABG pH 7.19 L* 7.19 L* (7.35-7.45) ABG pCO2 50 H 47 H (35-45) mmHg ABG pO2 124 H (83-108) mmHg ABG HCO3 19 L 18 L (21-25) mmol/L ABG O2 Saturation 97.6 H 93.4 L (94-97) % Sodium (137-145) mmol/L Chloride (98-107) mmol/L Carbon Dioxide (22-30) mmol/L BUN (9-20) mg/dL Creatinine (0.66-1.25) mg/dL Glucose (74-99) mg/dL POC Glucose (mg/dL) 230 H (70-110) mg/dL Osmolality (275-295) mOsm/kg Calcium (8.4-10.2) mg/dL Urine Osmolality (400-1100) mOsm/kg Hep Bs Antibody (Negative) 03/06/24 03/06/24 03/06/24 Range/Units 04:55 04:55 05:08 WBC 31.8 H (3.8-10.6) k/uL RBC 4.01 L (4.30-5.90) m/uL Hgb 12.6 L (13.0-17.5) gm/dL Hct 38.7 L (39.0-53.0) % RDW 15.8 H (11.5-15.5) % Neutrophils # (Manual) 31.40 H (1.3-7.7) k/uL Lymphocytes # (Manual) 0.64 L (1.0-4.8) k/uL APTT 64.1 H (22.0-30.0) sec ABG pH (7.35-7.45) ABG pCO2 (35-45) mmHg ABG pO2 (83-108) mmHg ABG HCO3 (21-25) mmol/L ABG O2 Saturation (94-97) % Sodium 126 L (137-145) mmol/L Chloride 94 L (98-107) mmol/L Carbon Dioxide 14 L (22-30) mmol/L BUN 107 H* (9-20) mg/dL Creatinine 4.75 H (0.66-1.25) mg/dL Glucose 242 H (74-99) mg/dL POC Glucose (mg/dL) (70-110) mg/dL Osmolality (275-295) mOsm/kg Calcium 7.0 L (8.4-10.2) mg/dL Urine Osmolality (400-1100) mOsm/kg Hep Bs Antibody (Negative) 03/06/24 03/06/24 03/06/24 Range/Units 05:18 06:33 11:34 WBC (3.8-10.6) k/uL RBC (4.30-5.90) m/uL Hgb (13.0-17.5) gm/dL Hct (39.0-53.0) % RDW (11.5-15.5) % Neutrophils # (Manual) (1.3-7.7) k/uL Lymphocytes # (Manual) (1.0-4.8) k/uL APTT (22.0-30.0) sec ABG pH 7.19 L* (7.35-7.45) ABG pCO2 (35-45) mmHg ABG pO2 73 L (83-108) mmHg ABG HCO3 17 L (21-25) mmol/L ABG O2 Saturation 90.3 L (94-97) % Sodium (137-145) mmol/L Chloride (98-107) mmol/L Carbon Dioxide (22-30) mmol/L BUN (9-20) mg/dL Creatinine (0.66-1.25) mg/dL Glucose (74-99) mg/dL POC Glucose (mg/dL) 251 H 196 H (70-110) mg/dL Osmolality (275-295) mOsm/kg Calcium (8.4-10.2) mg/dL Urine Osmolality (400-1100) mOsm/kg Hep Bs Antibody (Negative) 03/06/24 Range/Units 17:11 WBC (3.8-10.6) k/uL RBC (4.30-5.90) m/uL Hgb (13.0-17.5) gm/dL Hct (39.0-53.0) % RDW (11.5-15.5) % Neutrophils # (Manual) (1.3-7.7) k/uL Lymphocytes # (Manual) (1.0-4.8) k/uL APTT (22.0-30.0) sec ABG pH (7.35-7.45) ABG pCO2 (35-45) mmHg ABG pO2 (83-108) mmHg ABG HCO3 (21-25) mmol/L ABG O2 Saturation (94-97) % Sodium (137-145) mmol/L Chloride (98-107) mmol/L Carbon Dioxide (22-30) mmol/L BUN (9-20) mg/dL Creatinine (0.66-1.25) mg/dL Glucose (74-99) mg/dL POC Glucose (mg/dL) 208 H (70-110) mg/dL Osmolality (275-295) mOsm/kg Calcium (8.4-10.2) mg/dL Urine Osmolality (400-1100) mOsm/kg Hep Bs Antibody (Negative) Microbiology - Last 24 Hours (Table) 03/06/24 01:30 Gram Stain - Preliminary Sputum 03/03/24 18:44 Blood Culture - Preliminary Blood
--- NOTE | 2024-03-06 21:22 | P.PN ---
Subjective Progress Note Date: 03/06/24 Synopsis The patient is a 63-year-old gentleman who requested to see the intensive care unit. The patient somewhat is poor historian. The patient does have a past medical history significant for hypertension and also history of atrial fibrillation not on any anticoagulation. No history of coronary artery disease or congestive heart failure. The patient presented to the hospital complaining of progressive weakness for the last several weeks. Beside that he has been experiencing progressive dyspnea. No symptoms of chest pain or chest discomfort or dizziness or lightheadedness or any presyncope or syncope. He was found to be hypoxic in the emergency department and he was started on BiPAP and admitted to the intensive care unit. Also he was found to be in atrial fibrillation with a slightly uncontrolled heart rate. He is known to have history of paroxysmal atrial fibrillation not on any anticoagulation. Also further investigation performed including blood work showed severely abnormal creatinine which was around 5. Nephrology is on the case. The patient is not aware of any prior hi story of chronic kidney disease. The EKG showed atrial fibrillation with heart rate around 110 bpm with diffuse nonspecific ST and T wave abnormalities. The pressure has been soft with a systolic pressure in the 90s. Currently he is not on any vasopressors. Also he stated function test came to be abnormal which is likely secondary to hypotension. The physical examination is remarkable for irr egular rhythm with a systolic murmur at the right and left upper sternal border and bilateral rhonchi and wheezing as well as no edema was noted in the lower extremities. March 05, 2024 Continues to have minimal urine output requiring hemodialysis support. Patient is requiring norepinephrine to support his blood pressure. Minimal fluid was removed during hemodialysis session today Continues to be in atrial fibrillation with RVR March 06, 2024 Patient is getting hypotensive during hemodialysis requiring norepinephrine. He is continuing to be in atrial fibrillation with RVR. Assessment Acute hypoxic respiratory failure likely to be multifactorial Possible underlying pneumonia Acute HFrEF exacerbation Acute renal failure Atrial fibrillation with uncontrolled heart rate Obesity Echocardiogram showed EF around 50%, moderate RV dilatation, signs of pulmonary hypertension Plan Continue metoprolol 12.5 mg p.o. twice daily. Hold B Blocked before Hemodyalysis Start amiodarone Continue IV heparin drip Await echocardiogram findings Objective - Vital Signs Vital signs: Vital Signs Temp 97.3 F L 03/06/24 16:00 Pulse 110 H 03/06/24 21:14 Resp 28 H 03/06/24 19:30 BP 116/70 03/06/24 14:00 Pulse Ox 91 L 03/06/24 19:30 FiO2 100 03/06/24 21:04 Intake & Output 03/06/24 03/06/24 03/07/24 06:59 18:59 06:59 Intake Total 7596.148 5337.204 269.474 Output Total 4035 805 5 Balance -2557.174 1468.204 264.474 Weight 99 kg Intake: IV 170 280 20 Cefepime 1 gm In Sodium 50 50 Chloride 0.9% 50 ml @ 12. 5 mls/hr IVPB Q12HR [facility] M Rx#:[id number] Sodium Chloride 0.9% 1, 120 230 20 000 ml @ 10 mls/hr IV . Q24H [facility] M Rx#:[id number] Intake, IV Titration 805.340 4226.204 249.474 Amount Dexmedetomidine/0.9% NaCl 19.033 (Pmx) 400 mcg In Empty Bag 1 bag @ 0.2 MCG/KG/HR 4.965 mls/hr IV .[id number] [facility] M Rx#:[id number] Heparin Sod,Pork in 0.45% 250 249.474 NaCl 25,000 unit In 0.45 % NaCl 1 250ml.bag @ 18 UNITS/KG/HR 17.146 mls/hr IV .[id number] [facility] M Rx#: [id number] Norepinephrine 4 mg In 362.535 833.189 Sodium Chloride 0.9% 250 ml @ 0.03 MCG/KG/MIN 11. 655 mls/hr IV .[id number] [facility] M Rx#:[id number] propofoL 1,000 mg In 176.258 290.015 Empty Bag 1 bag @ 15 MCG/ KG/MIN 8.937 mls/hr IV . [id number] [facility] M Rx#:[id number] Oral 120 Hemodialysis 500 750 Output: Urine 35 55 5 Hemodialysis 2250 160 Hemodialysis Net Amount 1750 590 Other: Voiding Method Indwelling Catheter Indwelling Catheter ABP, PAP, CO, CI - Last Documented Arterial Blood Pressure 101/64 - Labs CBC & Chem 7: 03/06/24 04:55 03/06/24 04:55 Labs: Abnormal Lab Results - Last 24 Hours (Table) 03/04/24 03/04/24 03/05/24 Range/Units 12:00 12:19 09:43 WBC (3.8-10.6) k/uL RBC (4.30-5.90) m/uL Hgb (13.0-17.5) gm/dL Hct (39.0-53.0) % RDW (11.5-15.5) % Neutrophils # (Manual) (1.3-7.7) k/uL Lymphocytes # (Manual) (1.0-4.8) k/uL APTT (22.0-30.0) sec ABG pH (7.35-7.45) ABG pCO2 (35-45) mmHg ABG pO2 (83-108) mmHg ABG HCO3 (21-25) mmol/L ABG O2 Saturation (94-97) % Sodium (137-145) mmol/L Chloride (98-107) mmol/L Carbon Dioxide (22-30) mmol/L BUN (9-20) mg/dL Creatinine (0.66-1.25) mg/dL Glucose (74-99) mg/dL POC Glucose (mg/dL) (70-110) mg/dL Osmolality 308 H (275-295) mOsm/kg Calcium (8.4-10.2) mg/dL Urine Osmolality 299 L (400-1100) mOsm/kg Hep Bs Antibody A (Negative) 03/05/24 03/06/24 03/06/24 Range/Units 21:25 00:38 01:44 WBC (3.8-10.6) k/uL RBC (4.30-5.90) m/uL Hgb (13.0-17.5) gm/dL Hct (39.0-53.0) % RDW (11.5-15.5) % Neutrophils # (Manual) (1.3-7.7) k/uL Lymphocytes # (Manual) (1.0-4.8) k/uL APTT (22.0-30.0) sec ABG pH 7.19 L* 7.19 L* (7.35-7.45) ABG pCO2 50 H 47 H (35-45) mmHg ABG pO2 124 H (83-108) mmHg ABG HCO3 19 L 18 L (21-25) mmol/L ABG O2 Saturation 97.6 H 93.4 L (94-97) % Sodium (137-145) mmol/L Chloride (98-107) mmol/L Carbon Dioxide (22-30) mmol/L BUN (9-20) mg/dL Creatinine (0.66-1.25) mg/dL Glucose (74-99) mg/dL POC Glucose (mg/dL) 230 H (70-110) mg/dL Osmolality (275-295) mOsm/kg Calcium (8.4-10.2) mg/dL Urine Osmolality (400-1100) mOsm/kg Hep Bs Antibody (Negative) 03/06/24 03/06/24 03/06/24 Range/Units 04:55 04:55 05:08 WBC 31.8 H (3.8-10.6) k/uL RBC 4.01 L (4.30-5.90) m/uL Hgb 12.6 L (13.0-17.5) gm/dL Hct 38.7 L (39.0-53.0) % RDW 15.8 H (11.5-15.5) % Neutrophils # (Manual) 31.40 H (1.3-7.7) k/uL Lymphocytes # (Manual) 0.64 L (1.0-4.8) k/uL APTT 64.1 H (22.0-30.0) sec ABG pH (7.35-7.45) ABG pCO2 (35-45) mmHg ABG pO2 (83-108) mmHg ABG HCO3 (21-25) mmol/L ABG O2 Saturation (94-97) % Sodium 126 L (137-145) mmol/L Chloride 94 L (98-107) mmol/L Carbon Dioxide 14 L (22-30) mmol/L BUN 107 H* (9-20) mg/dL Creatinine 4.75 H (0.66-1.25) mg/dL Glucose 242 H (74-99) mg/dL POC Glucose (mg/dL) (70-110) mg/dL Osmolality (275-295) mOsm/kg Calcium 7.0 L (8.4-10.2) mg/dL Urine Osmolality (400-1100) mOsm/kg Hep Bs Antibody (Negative) 03/06/24 03/06/24 03/06/24 Range/Units 05:18 06:33 11:34 WBC (3.8-10.6) k/uL RBC (4.30-5.90) m/uL Hgb (13.0-17.5) gm/dL Hct (39.0-53.0) % RDW (11.5-15.5) % Neutrophils # (Manual) (1.3-7.7) k/uL Lymphocytes # (Manual) (1.0-4.8) k/uL APTT (22.0-30.0) sec ABG pH 7.19 L* (7.35-7.45) ABG pCO2 (35-45) mmHg ABG pO2 73 L (83-108) mmHg ABG HCO3 17 L (21-25) mmol/L ABG O2 Saturation 90.3 L (94-97) % Sodium (137-145) mmol/L Chloride (98-107) mmol/L Carbon Dioxide (22-30) mmol/L BUN (9-20) mg/dL Creatinine (0.66-1.25) mg/dL Glucose (74-99) mg/dL POC Glucose (mg/dL) 251 H 196 H (70-110) mg/dL Osmolality (275-295) mOsm/kg Calcium (8.4-10.2) mg/dL Urine Osmolality (400-1100) mOsm/kg Hep Bs Antibody (Negative) 03/06/24 Range/Units 17:11 WBC (3.8-10.6) k/uL RBC (4.30-5.90) m/uL Hgb (13.0-17.5) gm/dL Hct (39.0-53.0) % RDW (11.5-15.5) % Neutrophils # (Manual) (1.3-7.7) k/uL Lymphocytes # (Manual) (1.0-4.8) k/uL APTT (22.0-30.0) sec ABG pH (7.35-7.45) ABG pCO2 (35-45) mmHg ABG pO2 (83-108) mmHg ABG HCO3 (21-25) mmol/L ABG O2 Saturation (94-97) % Sodium (137-145) mmol/L Chloride (98-107) mmol/L Carbon Dioxide (22-30) mmol/L BUN (9-20) mg/dL Creatinine (0.66-1.25) mg/dL Glucose (74-99) mg/dL POC Glucose (mg/dL) 208 H (70-110) mg/dL Osmolality (275-295) mOsm/kg Calcium (8.4-10.2) mg/dL Urine Osmolality (400-1100) mOsm/kg Hep Bs Antibody (Negative) Microbiology - Last 24 Hours (Table) 03/06/24 01:30 Gram Stain - Preliminary Sputum 03/03/24 18:44 Blood Culture - Preliminary Blood
[2024-03-06 23:43] LABS: Glucose,Whole Blood 221 mg/dL (70-110)
[2024-03-07 00:29] LABS: ABG Base Excess -1.9 mmol/L; ABG HCO3 25 mmol/L (21-25); ABG Oxygen Saturation 85.2 % (94-97); ABG PCO2 52 mmHg (35-45); ABG PH 7.29 (7.35-7.45); ABG PO2 60 mmHg (83-108); ABG TCO2 27 mmol/L (19-24); Allen Test Performed? Yes
[2024-03-07 05:16] LABS: Glucose,Whole Blood 197 mg/dL (70-110)
[2024-03-07 05:59] LABS: Anion Gap 14 mmol/L; Blood Urea Nitrogen 81 mg/dL (9-20); Calcium 6.6 mg/dL (8.4-10.2); Carbon Dioxide 21 mmol/L (22-30); Chloride 94 mmol/L (98-107); Glucose 204 mg/dL (74-99); Potassium 4.1 mmol/L (3.5-5.1); Sodium 129 mmol/L (137-145)
[2024-03-07 06:05] LABS: African American GFR (CKD) 16 (>60 ml/min/1.73 sqM); HCT 35.3 % (39.0-53.0); HGB 11.7 gm/dL (13.0-17.5); Hypochromasia Slight; MCH 31.7 pg (25.0-35.0); MCHC 33.1 g/dL (31.0-37.0); MCV 95.9 fL (80.0-100.0); Mean Platelet Volume 9.4; Non-African American GFR(CKD) 14 (>60 ml/min/1.73 sqM); Platelet Count 225 k/uL (150-450); RBC 3.68 m/uL (4.30-5.90); RDW 15.8 % (11.5-15.5); WBC 22.3 k/uL (3.8-10.6)
[2024-03-07 06:42] LABS: ABG Base Excess -3.7 mmol/L; ABG HCO3 24 mmol/L (21-25); ABG Oxygen Saturation 97.5 % (94-97); ABG PCO2 54 mmHg (35-45); ABG PH 7.25 (7.35-7.45); ABG PO2 115 mmHg (83-108); ABG TCO2 26 mmol/L (19-24); Allen Test Performed? Yes
--- NOTE | 2024-03-07 07:51 | XR ---
EXAMINATION TYPE: XR chest 1V portable DATE OF EXAM: 03/07/2024 HISTORY: Shortness of breath. COMPARISON: 03/06/2024 TECHNIQUE: Single view of the chest is submitted. FINDINGS: Demonstrated are scattered senescent parenchymal change. Increasing opacity left lung with the left perihilar infiltrate and probable layering effusion. Endot mile tube, NG tube and right IJ catheter remain unchanged. The heart is stable. Hilar and mediastinal structures are within normal limits. Degenerative changes are seen of the dorsal spine. IMPRESSION: 1. Increasing opacity left lung with the left perihilar infiltrate and probable layering effusion.
[2024-03-07 08:19] LABS: Band Neutrophils % 9 %; Lymphocytes # (M) 1.12 k/uL (1.0-4.8); Monocytes # (M) 0.67 k/uL (0-1.0); Neutrophils % (M) 83 %; Nucleated Red Blood Cells 0 /100 WBC (0-0); Total Cells Counted 100
[2024-03-07 08:20] LABS: Large Platelets Present
[2024-03-07 10:06] VITALS: BMI 34.2
--- NOTE | 2024-03-07 11:51 | P.PN ---
Subjective Patient is seen for follow-up for acute kidney injury. Patient was started on renal replacement therapy on 03/05/2024 due to worsening renal function and severe volume overload. status post hemodialysis yesterday with no UF due to severe hypertension. Labs have improved today and we will attempt UF only today. Patient remains on 100% FiO2. For urine output. Levo fed at 0.2 mcg/kg. Objective - Vital Signs Vital signs: Vital Signs Temp 98.1 F 03/07/24 08:00 Pulse 74 03/07/24 11:15 Resp 30 H 03/07/24 11:15 BP 99/56 03/07/24 11:15 Pulse Ox 97 03/07/24 11:15 FiO2 100 03/07/24 09:53 Intake & Output 03/06/24 03/07/24 03/07/24 18:59 06:59 18:59 Intake Total 2300.579 1504.709 426.303 Output Total 805 88 10 Balance 3270.943 5693.709 416.303 Weight 105.2 kg 105.2 kg Intake: IV 280 290 110 Cefepime 1 gm In Sodium 50 50 50 Chloride 0.9% 50 ml @ 12. 5 mls/hr IVPB Q12HR [facility] Rx#:[id number] Sodium Chloride 0.9% 1, 230 240 60 000 ml @ 10 mls/hr IV . Q24H [facility] M Rx#:[id number] Intake, IV Titration 2131.688 4730.709 316.303 Amount Heparin Sod,Pork in 0.45% 409.789 NaCl 25,000 unit In 0.45 % NaCl 1 250ml.bag @ 18 UNITS/KG/HR 17.146 mls/hr IV .[id number] [facility] Rx#: [id number] Norepinephrine 4 mg In 860.564 577.606 316.303 Sodium Chloride 0.9% 250 ml @ 0.03 MCG/KG/MIN 11. 655 mls/hr IV .[id number] [facility] M Rx#:[id number] propofoL 1,000 mg In 290.015 197.314 Empty Bag 1 bag @ 15 MCG/ KG/MIN 8.937 mls/hr IV . [id number] [facility] Rx#:[id number] Oral 120 Hemodialysis 750 Other 30 Output: Gastric Drainage 50 Urine 55 38 10 Hemodialysis 160 Hemodialysis Net Amount 590 Other: Voiding Method Indwelling Catheter Indwelling Catheter Indwelling Catheter # Voids 0 ABP, PAP, CO, CI - Last Documented Arterial Blood Pressure 91/40 - Exam patient is sedated and on the vent Examination of the heart S1 and S2 Examination of the lungs decreased breath sounds at the bases Abdomen is soft distended Examination lower extremity shows no significant edema - Labs CBC & Chem 7: 03/07/24 04:45 03/07/24 04:45 Labs: Abnormal Lab Results - Last 24 Hours (Table) 03/06/24 03/06/24 03/07/24 Range/Units 17:11 23:40 00:27 WBC (3.8-10.6) k/uL RBC (4.30-5.90) m/uL Hgb (13.0-17.5) gm/dL Hct (39.0-53.0) % RDW (11.5-15.5) % Neutrophils # (Manual) (1.3-7.7) k/uL APTT (22.0-30.0) sec ABG pH 7.29 L (7.35-7.45) ABG pCO2 52 H (35-45) mmHg ABG pO2 60 L (83-108) mmHg ABG Total CO2 27 H (19-24) mmol/L ABG O2 Saturation 85.2 L (94-97) % Sodium (137-145) mmol/L Chloride (98-107) mmol/L Carbon Dioxide (22-30) mmol/L BUN (9-20) mg/dL Creatinine (0.66-1.25) mg/dL Glucose (74-99) mg/dL POC Glucose (mg/dL) 208 H 221 H (70-110) mg/dL Calcium (8.4-10.2) mg/dL 03/07/24 03/07/24 03/07/24 Range/Units 04:45 04:45 04:45 WBC 22.3 H (3.8-10.6) k/uL RBC 3.68 L (4.30-5.90) m/uL Hgb 11.7 L (13.0-17.5) gm/dL Hct 35.3 L (39.0-53.0) % RDW 15.8 H (11.5-15.5) % Neutrophils # (Manual) 20.50 H (1.3-7.7) k/uL APTT 88.0 H (22.0-30.0) sec ABG pH (7.35-7.45) ABG pCO2 (35-45) mmHg ABG pO2 (83-108) mmHg ABG Total CO2 (19-24) mmol/L ABG O2 Saturation (94-97) % Sodium 129 L (137-145) mmol/L Chloride 94 L (98-107) mmol/L Carbon Dioxide 21 L (22-30) mmol/L BUN 81 H (9-20) mg/dL Creatinine 4.17 H (0.66-1.25) mg/dL Glucose 204 H (74-99) mg/dL POC Glucose (mg/dL) (70-110) mg/dL Calcium 6.6 L (8.4-10.2) mg/dL 03/07/24 03/07/24 Range/Units 05:14 06:38 WBC (3.8-10.6) k/uL RBC (4.30-5.90) m/uL Hgb (13.0-17.5) gm/dL Hct (39.0-53.0) % RDW (11.5-15.5) % Neutrophils # (Manual) (1.3-7.7) k/uL APTT (22.0-30.0) sec ABG pH 7.25 L (7.35-7.45) ABG pCO2 54 H (35-45) mmHg ABG pO2 115 H (83-108) mmHg ABG Total CO2 26 H (19-24) mmol/L ABG O2 Saturation 97.5 H (94-97) % Sodium (137-145) mmol/L Chloride (98-107) mmol/L Carbon Dioxide (22-30) mmol/L BUN (9-20) mg/dL Creatinine (0.66-1.25) mg/dL Glucose (74-99) mg/dL POC Glucose (mg/dL) 197 H (70-110) mg/dL Calcium (8.4-10.2) mg/dL Microbiology - Last 24 Hours (Table) 03/06/24 01:30 Gram Stain - Preliminary Sputum Sputum Culture - Preliminary 03/03/24 18:44 Blood Culture - Preliminary Blood Assessment and Plan Assessment: 1. Acute kidney injury, ischemic ATN associated with low blood pressure, nonoliguric with unknown baseline renal function. UA shows trace protein and moderate blood and ultrasound of the kidneys shows no evidence of obstructive uropathy. Patient was also maintained on NSAIDs along with angiotensin receptor blockers at home, currently on hold. Started renal replacement therapy on 2023 due to worsening renal function and severe volume overload and acute respiratory failure. 2. Hyponatremia, worsened with IV fluids. Possible underlying SIADH. currently hypervolemic,improved with with dialysis. 3. Anion gap metabolic acidosis associated with acute kidney injury and lactic acidosis. 4. Hypocalcemia, secondary to severe nutritional vitamin D deficiency. 25- hydroxy vitamin D level was 7 5. Acute hypoxic respiratory failure secondary to pneumonia and CHF, intubated. 6. A. fib with RVR maintained status post amiodarone drip 7. Type 2 diabetes Plan: UF only today for 1-2 L repeat hemodialysis in a.m.
[2024-03-07 11:52] LABS: Glucose,Whole Blood 255 mg/dL (70-110)
--- NOTE | 2024-03-07 12:14 | P.PN ---
Subjective Progress Note Date: 03/07/24 Principal diagnosis: Acute hypoxic respiratory failure secondary to acute diastolic congestive heart failure, possible pneumonia This is a 63-year-old male patient who is somewhat of a poor historian. He has not been compliant with his medications and follow-ups with a primary care provider. He states he has not done well since his brother and director of infection prevention approximately 1 month ago. He does have a history of atrial fibrillation anticoagulated with warfarin, hypertension. He came to the emergency room yesterday by EMS for shortness of breath and generalized weakness over the past several weeks. He was found to be hypotensive in the 70s systolically and improved into the 80s and 90s following a liter bolus. Chest x-ray lobe infiltrate. Increased pulmonary vascular congestion consistent with congestive heart failure. White count 14.9. Hemoglobin 12.0. Platelets 231. Sodium 123. Potassium 3.6. Bicarb 16. BUN 116. Creatinine 4.16. Glucose 221. proBNP 10,100. AST 256. ALT 73. Ultrasound the gallbladder within normal limits. He is seen today in consultation in the intensive care unit. He is currently awake and alert. Unsure of his home medications. Is a smoker. He is currently on heparin drip per weight-based protocol. Cardizem drip at 5 mg an hour. Normal saline at KVO. He was requiring BiPAP support currently 12/5 and 100% FiO2 alt ernating with 15 L of high flow nasal cannula. Patient was evaluated today on 03/05/2024, patient remained the ICU, overnight was on BiPAP, this morning patient is on Airvo at 85% and 60 L flow. Patient is marginal at best, his IV fluid is at 10 cc/h, patient is receiving cefepime empirically for presumptive pneumonia he is also on diuretics and bronchodilators for congestive heart failure and COPD. Chest x-ray is showing interstitial edema and left lower lobe consolidation seems to be a combined picture of CHF and the left lower lobe pneumonia renal functioning remains poor with a BUN of 137 creatinine 4.53. WBC count is 17.3 hemoglobin 11.8 PTT is 51.2, liver enzymes are noted to be a bit elevated. Patient was evaluated today on 03/06/24, last night the patient developed worsening shortness of breath, extreme agitation and restlessness, could not keep his BiPAP, patient became more and more agitated and spite of trials of sedation with Precedex. Hence I recommended intubation and mechanical ventilation. Today the patient is on assist-control rate of 28 tidal volume 450 FiO2 80% and PEEP 8 increased up to 10. ABG is marginal with a pO2 of 73 pCO2 45 pH of 7.19 for which I recommended more bicarb, 1 amp of bicarb IV push, and the patient is undergoing hemodialysis which may help his metabolic acidosis. Patient is requiring epinephrine and 0.35 mcg/kg/min, yuko empirically on cefepime, cultures and sputum cultures are negative chest x-ray is showing slight improvement in his pulmonary edema continues to have some left lower lobe consolidation. Patient was evaluated today on08/31, remains in the ICU, intubated and mechanically ventilated. Patient is sedated. Patient is on assist-control rate of 28 increased to 30 tidal volume 450 increased to 500 FiO2 100% decreased down to 70% PEEP remains at 12. ABG showed a pO2 of 115 pCO2 54 pH of 7.25. Chest x-ray continues to show evidence of edema/unilateral edema especially on the left side. Patient is supposed to have hemodialysis today still receiving Lasix, he is on norepinephrine at 0.17 mcg/kg/min he is also on heparin propofol at 40 mcg/kg/min and his IV fluids at KVO. Antibiotics beltran, patient remains on cefepime empirically. His overall picture is extremely poor and guarded, and prognosis is poor, apparently could not get hold of his legal guardian earlier today as reported to me by the nurse taking care of the patient. I think eventually the patient will have to have a CODE STATUS assessed, and overall prognostic picture is extremely poor. In the meantime the patient may need a central line which I will go ahead and place later today after holding heparin for a couple of hours. Ultrasound of the chest was ordered to assess for potential thoracentesis if there is a large pleural effusion WBC count today is elevated 22.3 hemoglobin 11.7. PTT is 88, basic metabolic profile is normal BUN is 81 creatinine 4.17 Objective - Vital Signs Vital signs: Vital Signs Temp 98.1 F 03/07/24 08:00 Pulse 74 03/07/24 11:15 Resp 30 H 03/07/24 11:15 BP 99/56 03/07/24 11:15 Pulse Ox 97 03/07/24 11:15 FiO2 100 07/31/24 09:53 Intake & Output 03/06/24 03/07/24 03/07/24 18:59 06:59 18:59 Intake Total 2300.579 1504.709 426.303 Output Total 805 88 10 Balance 5540.590 6551.709 416.303 Weight 105.2 kg 105.2 kg Intake: IV 280 290 110 Cefepime 1 gm In Sodium 50 50 50 Chloride 0.9% 50 ml @ 12. 5 mls/hr IVPB Q12HR [facility] M Rx#:[id number] Sodium Chloride 0.9% 1, 230 240 60 000 ml @ 10 mls/hr IV . Q24H [facility] M Rx#:[id number] Intake, IV Titration 7436.551 0217.709 316.303 Amount Heparin Sod,Pork in 0.45% 409.789 NaCl 25,000 unit In 0.45 % NaCl 1 250ml.bag @ 18 UNITS/KG/HR 17.146 mls/hr IV .[id number] [facility] M Rx#: [id number] Norepinephrine 4 mg In 860.564 577.606 316.303 Sodium Chloride 0.9% 250 ml @ 0.03 MCG/KG/MIN 11. 655 mls/hr IV .[id number] [facility] M Rx#:[id number] propofoL 1,000 mg In 290.015 197.314 Empty Bag 1 bag @ 15 MCG/ KG/MIN 8.937 mls/hr IV . [id number] [facility] M Rx#:[id number] Oral 120 Hemodialysis 750 Other 30 Output: Gastric Drainage 50 Urine 55 38 10 Hemodialysis 160 Hemodialysis Net Amount 590 Other: Voiding Method Indwelling Catheter Indwelling Catheter Indwelling Catheter # Voids 0 ABP, PAP, CO, CI - Last Documented Arterial Blood Pressure 91/40 - Exam GENERAL EXAM: 63-year-old male, intubated and mechanically ventilated, sedated HEAD: Normocephalic. EYES: Normal reaction of pupils, equal size. NOSE: Clear with pink turbinates. THROAT: No erythema or exudates. NECK: No masses, no JVD. CHEST: No chest wall deformity. LUNGS: Crackles at the bases persist. Rhonchi persist. CVS: S1 and S2 normal with no audible murmur, regular rhythm. ABDOMEN: Obese, no hepatosplenomegaly, normal bowel sounds, no guarding or rigidity. SKIN: No rashes CENTRAL NERVOUS SYSTEM: Could not assess, patient is sedated. EXTREMITIES: Rash in the bilateral groins, there is 1-2+ peripheral edema. No clubbing, no cyanosis. Peripheral pulses are intact. - Labs CBC & Chem 7: 03/07/24 04:45 03/07/24 04:45 Labs: Abnormal Lab Results - Last 24 Hours (Table) 03/06/24 03/06/24 03/07/24 Range/Units 17:11 23:40 00:27 WBC (3.8-10.6) k/uL RBC (4.30-5.90) m/uL Hgb (13.0-17.5) gm/dL Hct (39.0-53.0) % RDW (11.5-15.5) % Neutrophils # (Manual) (1.3-7.7) k/uL APTT (22.0-30.0) sec ABG pH 7.29 L (7.35-7.45) ABG pCO2 52 H (35-45) mmHg ABG pO2 60 L (83-108) mmHg ABG Total CO2 27 H (19-24) mmol/L ABG O2 Saturation 85.2 L (94-97) % Sodium (137-145) mmol/L Chloride (98-107) mmol/L Carbon Dioxide (22-30) mmol/L BUN (9-20) mg/dL Creatinine (0.66-1.25) mg/dL Glucose (74-99) mg/dL POC Glucose (mg/dL) 208 H 221 H (70-110) mg/dL Calcium (8.4-10.2) mg/dL 03/07/24 03/07/24 03/07/24 Range/Units 04:45 04:45 04:45 WBC 22.3 H (3.8-10.6) k/uL RBC 3.68 L (4.30-5.90) m/uL Hgb 11.7 L (13.0-17.5) gm/dL Hct 35.3 L (39.0-53.0) % RDW 15.8 H (11.5-15.5) % Neutrophils # (Manual) 20.50 H (1.3-7.7) k/uL APTT 88.0 H (22.0-30.0) sec ABG pH (7.35-7.45) ABG pCO2 (35-45) mmHg ABG pO2 (83-108) mmHg ABG Total CO2 (19-24) mmol/L ABG O2 Saturation (94-97) % Sodium 129 L (137-145) mmol/L Chloride 94 L (98-107) mmol/L Carbon Dioxide 21 L (22-30) mmol/L BUN 81 H (9-20) mg/dL Creatinine 4.17 H (0.66-1.25) mg/dL Glucose 204 H (74-99) mg/dL POC Glucose (mg/dL) (70-110) mg/dL Calcium 6.6 L (8.4-10.2) mg/dL 03/07/24 03/07/24 03/07/24 Range/Units 05:14 06:38 11:51 WBC (3.8-10.6) k/uL RBC (4.30-5.90) m/uL Hgb (13.0-17.5) gm/dL Hct (39.0-53.0) % RDW (11.5-15.5) % Neutrophils # (Manual) (1.3-7.7) k/uL APTT (22.0-30.0) sec ABG pH 7.25 L (7.35-7.45) ABG pCO2 54 H (35-45) mmHg ABG pO2 115 H (83-108) mmHg ABG Total CO2 26 H (19-24) mmol/L ABG O2 Saturation 97.5 H (94-97) % Sodium (137-145) mmol/L Chloride (98-107) mmol/L Carbon Dioxide (22-30) mmol/L BUN (9-20) mg/dL Creatinine (0.66-1.25) mg/dL Glucose (74-99) mg/dL POC Glucose (mg/dL) 197 H 255 H (70-110) mg/dL Calcium (8.4-10.2) mg/dL Microbiology - Last 24 Hours (Table) 03/06/24 01:30 Gram Stain - Preliminary Sputum Sputum Culture - Preliminary 03/03/24 18:44 Blood Culture - Preliminary Blood Assessment and Plan Assessment: Impression: Acute hypoxemic respiratory failure, multifactorial suspect acute diastolic congestive heart failure, possible underlying pneumonia, required intubation on 03/05/2024 Atrial fibrillation with rapid ventricular response, currently on a heparin drip, being addressed by cardiology. Acute kidney injury suspect secondary to dehydration, hypotension, suspect acute tubular necrosis, patient is on renal replacement therapy Acute metabolic acidosis secondary to acute kidney injury and acute renal failure Leukocytosis Hyponatremia Hyperglycemia Hypocalcemia Transaminitis Chronic tobacco dependence Poor medical compliance Recommendation: Continue ventilatory support, not ready for any weaning at this point considering his marginal ABG considering his chest x-ray findings, ultrasound of the chest was ordered Nutritional support/enteral feeding Hemodynamic support, remains on norepinephrine Continue hemodialysis Continue bicarb via orogastric tube. Continue to monitor daily electrolytes and daily labs Continue to monitor in the ICU for now. Patient remains critically ill and prognosis is guarded, CODE STATUS needs to be addressed with his guardian GI and DVT prophylaxis Continue hemodynamic support Critical care time is over 30 minutes not including the time spent on procedure Time with Patient: Greater than 30
--- NOTE | 2024-03-07 12:58 | US ---
EXAMINATION TYPE: US chest DATE OF EXAM: 03/07/2024 COMPARISON: Radiograph same date CLINICAL INDICATION: Male, 63 years old with history of Markings for thoracentesis by pulmonary staff ; TECHNIQUE: Targeted ultrasound of the posterior lower left hemithorax EXAM MEASUREMENTS: Left side NOT marked for possible thoracentesis outside the dept. Pulmonologists are able to review the images in the patient?s EMR. Suboptimal study. Patient is intubated and cannot sit up. 3 RNs were assisting in holding patient up. Unable to visualize pocket of possible fluid within the left lung space. IMPRESSIONS: Suboptimal exam as above for assessment of left effusion.
--- NOTE | 2024-03-07 16:31 | XR ---
EXAMINATION TYPE: XR chest 1V confirm line [facility] DATE OF EXAM: 03/07/2024 COMPARISON: 03/07/2024 HISTORY: 63-year-old male confirm line placement TECHNIQUE: Single frontal view of the chest is obtained. FINDINGS: Right IJ CVC tip at the lower SVC. Left subclavian CVC tip also at the lower SVC. Heart up per limits of normal size. Continued extensive consolidation throughout most of the left lung. ET tub e satisfactory. NG tube courses below the diaphragm. IMPRESSION: 1. Right IJ CVC and new left subclavian CVC tips both at the lower SVC level. 2. Extensive opacity throughout the left lung persists.
[2024-03-07] MEDS: VASOPRESSIN 60 UNIT in SODIUM CHLORIDE 0.9% 150 ML IV SCH (16:32)
[2024-03-07] MEDS ORDERED: HYDROmorphone 1 MG/ML 1 ML SYRINGE IVP PRN (17:53)
[2024-03-07] MEDS ORDERED: LORazepam 2 MG/ML INJ IV PRN (17:53)
[2024-03-07] MEDS ORDERED: MORPHINE SULFATE 2 MG/ML SYRINGE IV PRN (17:53)
[2024-03-07] MEDS ORDERED: HYDROmorphone 0.5 MG/0.5 ML SYRINGE IVP PRN (17:53)
[2024-03-07] MEDS ORDERED: ATROPINE OPHTH SOLN 1% 5ML BTL SUBLINGUAL PRN (17:53)
[2024-03-07] MEDS: MORPHINE SULFATE 4 MG/ML SYRINGE IV PRN (18:04)
[2024-03-07 18:09] VITALS: TEMP 98.3
[2024-03-07] MEDS: MORPHINE SULFATE (100 MG/2 ML) 100 MG in SODIUM CHLORIDE 0.9% 100 ML IV SCH (18:17)
[2024-03-07] MEDS: SCOPOLAMINE 1 MG/72 HR PATCH TRANSDERM SCH (18:29)
--- NOTE | 2024-03-07 18:52 | P.PN ---
Subjective Progress Note Date: 03/07/24 Synopsis The patient is a 63-year-old gentleman who requested to see the intensive care unit. The patient somewhat is poor historian. The patient does have a past medical history significant for hypertension and also history of atrial fibrillation not on any anticoagulation. No history of coronary artery disease or congestive heart failure. The patient presented to the hospital complaining of progressive weakness for the last several weeks. Beside that he has been experiencing progressive dyspnea. No symptoms of chest pain or chest discomfort or dizziness or lightheadedness or any presyncope or syncope. He was found to be hypoxic in the emergency department and he was started on BiPAP and admitted to the intensive care unit. Also he was found to be in atrial fibrillation with a slightly uncontrolled heart rate. He is known to have history of paroxysmal atrial fibrillation not on any anticoagulation. Also further investigation performed including blood work showed severely abnormal creatinine which was around 5. Nephrology is on the case. The patient is not aware of any prior hi story of chronic kidney disease. The EKG showed atrial fibrillation with heart rate around 110 bpm with diffuse nonspecific ST and T wave abnormalities. The pressure has been soft with a systolic pressure in the 90s. Currently he is not on any vasopressors. Also he stated function test came to be abnormal which is likely secondary to hypotension. The physical examination is remarkable for irr egular rhythm with a systolic murmur at the right and left upper sternal border and bilateral rhonchi and wheezing as well as no edema was noted in the lower extremities. March 05, 2024 Continues to have minimal urine output requiring hemodialysis support. Patient is requiring norepinephrine to support his blood pressure. Minimal fluid was removed during hemodialysis session today Continues to be in atrial fibrillation with RVR March 06, 2024 Patient is getting hypotensive during hemodialysis requiring norepinephrine. He is continuing to be in atrial fibrillation with RVR. March 07, 2024 BP 119 over 48 mmHg, heart rate 85 bpm, continues to have tachypnea Chest x-ray shows mild increased aeration. Mild elevated JVD on exam Afib RVR on telemtry Assessment Acute hypoxic respiratory failure likely to be multifactorial Possible underlying pneumonia Acute HFrEF exacerbation Acute renal failure Atrial fibrillation with uncontrolled heart rate Obesity Echocardiogram showed EF around 50%, moderate RV dilatation, signs of pulmonary hypertension Plan Continue metoprolol 12.5 mg p.o. twice daily. Hold B Blocked before Hemodyalysis Start amiodarone Continue IV heparin drip Poor prognosis. Objective - Vital Signs Vital signs: Vital Signs Temp 98.3 F 03/07/24 18:04 Pulse 77 03/07/24 18:04 Resp 30 H 03/07/24 18:04 BP 119/48 03/07/24 18:04 Pulse Ox 96 03/07/24 16:30 FiO2 100 03/07/24 15:48 Intake & Output 03/06/24 03/07/24 03/07/24 18:59 06:59 18:59 Intake Total 2300.579 3690.712 7863.732 Output Total 805 88 631 Balance 1637.305 5987.709 791.732 Weight 105.2 kg 105.2 kg Intake: IV 280 290 160 Cefepime 1 gm In Sodium 50 50 50 Chloride 0.9% 50 ml @ 12. 5 mls/hr IVPB Q12HR [facility] Rx#:[id number] Sodium Chloride 0.9% 1, 230 240 110 000 ml @ 10 mls/hr IV . Q24H [facility] Rx#:[id number] Intake, IV Titration 4771.384 7733.709 1012.732 Amount Heparin Sod,Pork in 0.45% 409.789 104.799 NaCl 25,000 unit In 0.45 % NaCl 1 250ml.bag @ 18 UNITS/KG/HR 17.146 mls/hr IV .[id number] [facility] Rx#: [id number] Morphine Sulfate (100 mg/ 0.408 2 ml) 100 mg In Sodium Chloride 0.9% 100 ml @ 1 MG/HR 1.02 mls/hr IV . Q24H [facility] Rx#:[id number] Norepinephrine 4 mg In 860.564 577.606 668.205 Sodium Chloride 0.9% 250 ml @ 0.03 MCG/KG/MIN 11. 655 mls/hr IV .[id number] [facility] Rx#:[id number] Vasopressin 60 unit In 6.656 Sodium Chloride 0.9% 150 ml @ 0.03 UNITS/MIN 4.59 mls/hr IV .Q24H [facility] Rx#: [id number] propofoL 1,000 mg In 290.015 197.314 232.664 Empty Bag 1 bag @ 15 MCG/ KG/MIN 8.937 mls/hr IV . [id number] [facility] Rx#:[id number] Oral 120 Hemodialysis 750 250 Other 30 Output: Gastric Drainage 50 Urine 55 38 21 Hemodialysis 160 430 Hemodialysis Net Amount 590 180 Other: Voiding Method Indwelling Catheter Indwelling Catheter Indwelling Catheter # Voids 0 ABP, PAP, CO, CI - Last Documented Arterial Blood Pressure 95/41 - Labs CBC & Chem 7: 03/07/24 04:45 03/07/24 04:45 Labs: Abnormal Lab Results - Last 24 Hours (Table) 03/06/24 03/07/24 03/07/24 Range/Units 23:40 00:27 04:45 WBC 22.3 H (3.8-10.6) k/uL RBC 3.68 L (4.30-5.90) m/uL Hgb 11.7 L (13.0-17.5) gm/dL Hct 35.3 L (39.0-53.0) % RDW 15.8 H (11.5-15.5) % Neutrophils # (Manual) 20.50 H (1.3-7.7) k/uL APTT (22.0-30.0) sec ABG pH 7.29 L (7.35-7.45) ABG pCO2 52 H (35-45) mmHg ABG pO2 60 L (83-108) mmHg ABG Total CO2 27 H (19-24) mmol/L ABG O2 Saturation 85.2 L (94-97) % Sodium (137-145) mmol/L Chloride (98-107) mmol/L Carbon Dioxide (22-30) mmol/L BUN (9-20) mg/dL Creatinine (0.66-1.25) mg/dL Glucose (74-99) mg/dL POC Glucose (mg/dL) 221 H (70-110) mg/dL Calcium (8.4-10.2) mg/dL 03/07/24 03/07/24 03/07/24 Range/Units 04:45 04:45 05:14 WBC (3.8-10.6) k/uL RBC (4.30-5.90) m/uL Hgb (13.0-17.5) gm/dL Hct (39.0-53.0) % RDW (11.5-15.5) % Neutrophils # (Manual) (1.3-7.7) k/uL APTT 88.0 H (22.0-30.0) sec ABG pH (7.35-7.45) ABG pCO2 (35-45) mmHg ABG pO2 (83-108) mmHg ABG Total CO2 (19-24) mmol/L ABG O2 Saturation (94-97) % Sodium 129 L (137-145) mmol/L Chloride 94 L (98-107) mmol/L Carbon Dioxide 21 L (22-30) mmol/L BUN 81 H (9-20) mg/dL Creatinine 4.17 H (0.66-1.25) mg/dL Glucose 204 H (74-99) mg/dL POC Glucose (mg/dL) 197 H (70-110) mg/dL Calcium 6.6 L (8.4-10.2) mg/dL 03/07/24 03/07/24 03/07/24 Range/Units 06:38 11:51 12:39 WBC (3.8-10.6) k/uL RBC (4.30-5.90) m/uL Hgb (13.0-17.5) gm/dL Hct (39.0-53.0) % RDW (11.5-15.5) % Neutrophils # (Manual) (1.3-7.7) k/uL APTT 83.8 H (22.0-30.0) sec ABG pH 7.25 L (7.35-7.45) ABG pCO2 54 H (35-45) mmHg ABG pO2 115 H (83-108) mmHg ABG Total CO2 26 H (19-24) mmol/L ABG O2 Saturation 97.5 H (94-97) % Sodium (137-145) mmol/L Chloride (98-107) mmol/L Carbon Dioxide (22-30) mmol/L BUN (9-20) mg/dL Creatinine (0.66-1.25) mg/dL Glucose (74-99) mg/dL POC Glucose (mg/dL) 255 H (70-110) mg/dL Calcium (8.4-10.2) mg/dL Microbiology - Last 24 Hours (Table) 03/06/24 01:30 Gram Stain - Preliminary Sputum Sputum Culture - Preliminary 03/03/24 18:44 Blood Culture - Preliminary Blood
[2024-03-07 21:11] VITALS: BP 102/53; PULSE 29; RESP 0
--- NOTE | 2024-03-07 22:30 | OP ---
OPERATIVE REPORT DATE OF SERVICE : PROCEDURE PERFORMED: Placement of a left subclavian triple-lumen catheter. PREOPERATIVE DIAGNOSES: Acute hypoxic respiratory failure, hypotension, the patient is requiring pressors. POSTOPERATIVE DIAGNOSIS: Acute hypoxic respiratory failure, hypotension, the patient is requiring pressors. ANESTHESIA USED: 2 mL of 1% lidocaine. DESCRIPTION OF PROCEDURE: The patient was placed in a Trendelenburg position, the area of the left sub subclavian region was prepared in a sterile fashion. Drapes were applied. The area was locally anesthetized with lidocaine. Using the inferior approach, the left subclavian vein was easily cannulated, and a guidewire was placed. The area around the guidewire was dilated. Then a triple-lumen catheter was inserted over the guidewire, the guidewire was removed. Good blood flow noted in 3 different ports of the triple-lumen catheter, line was secured using 3.0 silk sutures, chest x-ray ordered and is pending at the time of this dictation. MMODL / IJN: [id number] /
--- NOTE | 2024-03-07 22:36 | OP ---
OPERATIVE REPORT DATE OF SERVICE : PROCEDURE PERFORMED: Placement of a left brachial arterial line. PREOPERATIVE DIAGNOSES: Hypotension, acute hypoxic respiratory failure, congestive heart failure, and renal failure. POSTOPERATIVE DIAGNOSES: Hypotension, acute hypoxic respiratory failure, congestive heart failure, and renal failure. ANESTHESIA USED: None deployed. DESCRIPTION OF PROCEDURE: The patient was placed in a supine position. The area of the left brachial region was prepared in a sterile fashion. Drapes were applied. The left brachial artery was palpated, easily cannulated, and a guidewire was placed. A Cook's catheter was inserted and placed over the guidewire, the guidewire was removed. Good blood flow, good waveform, no complications. Line was secured using 3.0 silk sutures. MMODL / IJN: [id number] /
--- NOTE | 2024-03-07 22:47 | P.PN ---
Subjective Progress Note Date: 03/05/24 This is a pleasant 63 years old male with past medical history of multiple medical problems including A-fib, hypothyroidism, pulmonary embolism and hypertension Patient presents because of dyspnea over 4 days. Patient is poor historian because of his BiPAP Patient have hard time talking because of his dyspnea However patient can states he does not have chest pain Abdomen looks soft no leg edema no urinary problems or complaints Currently getting oxygen via his BiPAP and he has expiratory wheezing He says his smoker about 1 pack/day, unknown about his alcohol or illicit drugs He is afebrile He has mild leukocytosis at 14,000, hemoglobin 14.5 INR 1.8 Sodium 126 and creatinine 4.5 D-dimer elevated 3.2 pH is low 7.2 and pCO2 is slightly elevated at 49 proBNP is high 1000 EKG showing A-fib with RVR at 135 Chest x-ray showing cardiomegaly with pulmonary vascular congestion Gallbladder ultrasound showing gallbladder within normal limits 03/05/2024 Patient is in the MICU. Currently on oxygen high flow 60 L in the at 85%. Overnight patient was on BiPAP. On antibiotics and follow-up surgery for possible pneumonia. Patient is also on diuretics for CHF. Chest x-ray showed interstitial edema and left lower lobe consolidation. Otherwise renal function remains the same with creatinine level 4.53. Other laboratory data showed WBC 17.3 hemoglobin 11.8 and platelets 51. Mindy has slightly elevated. Current medications reviewed. Objective - Vital Signs Vital signs: Vital Signs Temp 98.1 F 03/05/24 08:00 Pulse 109 H 03/05/24 10:00 Resp 23 03/05/24 10:00 BP 103/76 03/05/24 10:00 Pulse Ox 93 L 03/05/24 10:00 FiO2 100 03/05/24 08:45 Intake & Output 03/04/24 03/05/24 03/05/24 18:59 06:59 18:59 Intake Total 1244.171 584.406 330 Output Total 335 220 60 Balance 909.171 364.406 270 Weight 101.968 kg 99.3 kg Intake: IV 160 260 90 Cefepime 1 gm In Sodium 50 Chloride 0.9% 50 ml @ 12. 5 mls/hr IVPB Q12HR [facility] Rx#:[id number] Cefepime 2 gm In Sodium 100 Chloride 0.9% 100 ml @ 200 mls/hr IVPB [facility] Rx#:[id number] Invasive Line 1 30 Sodium Chloride 0.9% 1, 130 160 40 000 ml @ 10 mls/hr IV . Q24H [facility] Rx#:[id number] Intake, IV Titration 304.171 324.406 Amount Diltiazem 125 mg In 88.417 Sodium Chloride 0.9% 100 ml @ 5 MG/HR 5 mls/hr IV .Q24H [facility] Rx#:[id number] Heparin Sod,Pork in 0.45% 215.754 242.044 NaCl 25,000 unit In 0.45 % NaCl 1 250ml.bag @ 18 UNITS/KG/HR 17.146 mls/hr IV .[id number] [facility] Rx#: [id number] Norepinephrine 4 mg In 82.362 Sodium Chloride 0.9% 250 ml @ 0.03 MCG/KG/MIN 11. 655 mls/hr IV .[id number] [facility] Rx#:[id number] Oral 780 240 Output: Urine 335 220 60 Other: Voiding Method Indwelling Catheter Indwelling Catheter Indwelling Catheter # Voids 0 # Bowel Movements 0 - Exam -GENERAL: The patient is alert and oriented x3, not in any acute distress. Well developed, well nourished. Obese HEENT: Pupils are round and equally reacting to light. EOMI. No scleral icterus. No conjunctival pallor. Normocephalic, atraumatic. No pharyngeal erythema. No thyromegaly. CARDIOVASCULAR: S1 and S2 present. No murmurs, rubs, or gallops. -PULMONARY: Chest is clear to auscultation, bilateral expiratory wheezing , no crackles. Tachypneic and patient has hard time talking because of his dyspnea ABDOMEN: Soft, nontender, nondistended, normoactive bowel sounds. No palpable organomegaly. MUSCULOSKELETAL: No joint swelling or deformity. EXTREMITIES: No cyanosis, clubbing, or pedal edema. NEUROLOGICAL: Gross neurological examination did not reveal any focal deficits. -SKIN: No rashes. no petechiae. Left axillary rash - Labs CBC & Chem 7: 03/07/24 04:45 03/07/24 04:45 Labs: Abnormal Lab Results - Last 24 Hours (Table) 03/03/24 03/04/24 03/04/24 Range/Units 17:24 12:00 12:01 WBC (3.8-10.6) k/uL RBC (4.30-5.90) m/uL Hgb (13.0-17.5) gm/dL Hct (39.0-53.0) % Neutrophils # (1.3-7.7) k/uL Lymphocytes # (1.0-4.8) k/uL APTT (22.0-30.0) sec Sodium (137-145) mmol/L Potassium (3.5-5.1) mmol/L Chloride (98-107) mmol/L Carbon Dioxide (22-30) mmol/L BUN (9-20) mg/dL Creatinine (0.66-1.25) mg/dL Glucose (74-99) mg/dL POC Glucose (mg/dL) 296 H (70-110) mg/dL Hemoglobin A1c (<=6.0) % Calcium (8.4-10.2) mg/dL Ionized Calcium [place] (4.5-5.3) mg/dL Phosphorus (2.5-4.5) mg/dL Delta Bilirubin (0.0-0.2) mg/dL AST (17-59) U/L ALT (4-49) U/L Total Protein (6.3-8.2) g/dL Albumin (3.5-5.0) g/dL Vitamin D 25-Hydroxy (30.0-100.0) ng/mL Procalcitonin 29.20 H (0.02-0.50) ng/mL TSH (0.465-4.680) mIU/L Urine Protein Trace H (Negative) Urine Blood Moderate H (Negative) Ur Random Sodium (40-220) mmol/L 03/04/24 03/04/24 03/04/24 Range/Units 12:19 15:00 17:38 WBC (3.8-10.6) k/uL RBC (4.30-5.90) m/uL Hgb (13.0-17.5) gm/dL Hct (39.0-53.0) % Neutrophils # (1.3-7.7) k/uL Lymphocytes # (1.0-4.8) k/uL APTT (22.0-30.0) sec Sodium 124 L (137-145) mmol/L Potassium 3.4 L (3.5-5.1) mmol/L Chloride 92 L (98-107) mmol/L Carbon Dioxide 17 L (22-30) mmol/L BUN (9-20) mg/dL Creatinine (0.66-1.25) mg/dL Glucose (74-99) mg/dL POC Glucose (mg/dL) 267 H (70-110) mg/dL Hemoglobin A1c (<=6.0) % Calcium (8.4-10.2) mg/dL Ionized Calcium [place] (4.5-5.3) mg/dL Phosphorus 7.7 H (2.5-4.5) mg/dL Delta Bilirubin (0.0-0.2) mg/dL AST (17-59) U/L ALT (4-49) U/L Total Protein (6.3-8.2) g/dL Albumin (3.5-5.0) g/dL Vitamin D 25-Hydroxy 7.2 L (30.0-100.0) ng/mL Procalcitonin (0.02-0.50) ng/mL TSH 0.393 L (0.465-4.680) mIU/L Urine Protein (Negative) Urine Blood (Negative) Ur Random Sodium (40-220) mmol/L 03/04/24 03/04/24 03/05/24 Range/Units 18:30 20:07 06:07 WBC (3.8-10.6) k/uL RBC (4.30-5.90) m/uL Hgb (13.0-17.5) gm/dL Hct (39.0-53.0) % Neutrophils # (1.3-7.7) k/uL Lymphocytes # (1.0-4.8) k/uL APTT (22.0-30.0) sec Sodium (137-145) mmol/L Potassium (3.5-5.1) mmol/L Chloride (98-107) mmol/L Carbon Dioxide (22-30) mmol/L BUN (9-20) mg/dL Creatinine (0.66-1.25) mg/dL Glucose (74-99) mg/dL POC Glucose (mg/dL) 308 H (70-110) mg/dL Hemoglobin A1c 7.3 H (<=6.0) % Calcium (8.4-10.2) mg/dL Ionized Calcium [place] (4.5-5.3) mg/dL Phosphorus (2.5-4.5) mg/dL Delta Bilirubin (0.0-0.2) mg/dL AST (17-59) U/L ALT (4-49) U/L Total Protein (6.3-8.2) g/dL Albumin (3.5-5.0) g/dL Vitamin D 25-Hydroxy (30.0-100.0) ng/mL Procalcitonin (0.02-0.50) ng/mL TSH (0.465-4.680) mIU/L Urine Protein (Negative) Urine Blood (Negative) Ur Random Sodium <20 L (40-220) mmol/L 03/05/24 03/05/24 03/05/24 Range/Units 06:07 06:07 06:07 WBC 17.3 H (3.8-10.6) k/uL RBC 3.75 L (4.30-5.90) m/uL Hgb 11.8 L (13.0-17.5) gm/dL Hct 36.2 L (39.0-53.0) % Neutrophils # 16.1 H (1.3-7.7) k/uL Lymphocytes # 0.3 L (1.0-4.8) k/uL APTT 51.2 H (22.0-30.0) sec Sodium 125 L (137-145) mmol/L Potassium (3.5-5.1) mmol/L Chloride 92 L (98-107) mmol/L Carbon Dioxide 14 L (22-30) mmol/L BUN (9-20) mg/dL Creatinine (0.66-1.25) mg/dL Glucose 183 H (74-99) mg/dL POC Glucose (mg/dL) (70-110) mg/dL Hemoglobin A1c (<=6.0) % Calcium 6.9 L (8.4-10.2) mg/dL Ionized Calcium [place] 3.8 L (4.5-5.3) mg/dL Phosphorus (2.5-4.5) mg/dL Delta Bilirubin 1.0 H (0.0-0.2) mg/dL AST 241 H (17-59) U/L ALT 87 H (4-49) U/L Total Protein 5.3 L (6.3-8.2) g/dL Albumin 2.5 L (3.5-5.0) g/dL Vitamin D 25-Hydroxy (30.0-100.0) ng/mL Procalcitonin (0.02-0.50) ng/mL TSH (0.465-4.680) mIU/L Urine Protein (Negative) Urine Blood (Negative) Ur Random Sodium (40-220) mmol/L 03/05/24 03/05/24 Range/Units 06:33 09:43 WBC (3.8-10.6) k/uL RBC (4.30-5.90) m/uL Hgb (13.0-17.5) gm/dL Hct (39.0-53.0) % Neutrophils # (1.3-7.7) k/uL Lymphocytes # (1.0-4.8) k/uL APTT (22.0-30.0) sec Sodium (137-145) mmol/L Potassium (3.5-5.1) mmol/L Chloride (98-107) mmol/L Carbon Dioxide (22-30) mmol/L BUN 137 H* (9-20) mg/dL Creatinine 4.53 H (0.66-1.25) mg/dL Glucose (74-99) mg/dL POC Glucose (mg/dL) 189 H (70-110) mg/dL Hemoglobin A1c (<=6.0) % Calcium (8.4-10.2) mg/dL Ionized Calcium [place] (4.5-5.3) mg/dL Phosphorus (2.5-4.5) mg/dL Delta Bilirubin (0.0-0.2) mg/dL AST (17-59) U/L ALT (4-49) U/L Total Protein (6.3-8.2) g/dL Albumin (3.5-5.0) g/dL Vitamin D 25-Hydroxy (30.0-100.0) ng/mL Procalcitonin (0.02-0.50) ng/mL TSH (0.465-4.680) mIU/L Urine Protein (Negative) Urine Blood (Negative) Ur Random Sodium (40-220) mmol/L Microbiology - Last 24 Hours (Table) 03/03/24 18:44 Blood Culture - Preliminary Blood Assessment and Plan Assessment: Acute COPD exacerbation Acute hypoxic respiratory failure secondary to multifactorial. CHF and underlying pneumonia Leukocytosis A-fib and RVR Acute kidney injury likely due to ATN. Anemia Hyponatremia Hypertension, currently blood pressure on the low side Hypothyroidism Anxiety Left axillary fungal infection/candidiasis History of pulmonary embolism Obesity with BMI of 33.2 on admission Plan: Continue with IV Solu-Medrol. Patient was given a dose of IV Lasix. Continue with bronchodilator Continue with BiPAP machine as needed On Cardizem drip with cardiology following closely Continue with heparin drip Pulmonary and nephrology is on board. Continue with nystatin Xanax as needed Recommend to hold IV fluids Labs and medication were reviewed..Continue with symptomatic treatment. Resume home medication. Monitor labs and vitals. DVT and GI prophylaxis. DVT prophylaxis: heparin GI Prophylaxis: Pepcid Prognosis is guarded Time with Patient: Greater than 30
--- NOTE | 2024-03-07 22:51 | P.PN ---
Subjective Progress Note Date: 03/06/24 This is a pleasant 63 years old male with past medical history of multiple medical problems including A-fib, hypothyroidism, pulmonary embolism and hypertension Patient presents because of dyspnea over 4 days. Patient is poor historian because of his BiPAP Patient have hard time talking because of his dyspnea However patient can states he does not have chest pain Abdomen looks soft no leg edema no urinary problems or complaints Currently getting oxygen via his BiPAP and he has expiratory wheezing He says his smoker about 1 pack/day, unknown about his alcohol or illicit drugs He is afebrile He has mild leukocytosis at 14,000, hemoglobin 14.5 INR 1.8 Sodium 126 and creatinine 4.5 D-dimer elevated 3.2 pH is low 7.2 and pCO2 is slightly elevated at 49 proBNP is high 1000 EKG showing A-fib with RVR at 135 Chest x-ray showing cardiomegaly with pulmonary vascular congestion Gallbladder ultrasound showing gallbladder within normal limits 03/05/2024 Patient is in the MICU. Currently on oxygen high flow 60 L in the at 85%. Overnight patient was on BiPAP. On antibiotics and follow-up surgery for possible pneumonia. Patient is also on diuretics for CHF. Chest x-ray showed interstitial edema and left lower lobe consolidation. Otherwise renal function remains the same with creatinine level 4.53. Other laboratory data showed WBC 17.3 hemoglobin 11.8 and platelets 51. Mindy has slightly elevated. 03/06/2024 Overnight patient had worsening shortness of breath and was agitated and restle ss. Could not keep his BiPAP. Patient was intubated and on Precedex currently. ABG showed pH 7.19 pCO2 45 pO2 73. Patient is also requiring pressor support with Levophed. Patient was given IV bicarb. Renal function is worsening and nephrology is planning for renal replacement therapy. Chest x-ray showed slight improvement in pulmonary edema but continues to have left lower lobe consolidation. Patient remains on IV antibiotics cefepime. Laboratory showed WBCs 31.8 hemoglobin 12.6 and platelets 286 sodium 126 potassium 4.1 chloride 94 bicarb is 14 BUN 107 creatinine 4.75 and blood sugar is 248 and calcium 7.0. Current medications reviewed. Objective - Vital Signs Vital signs: Vital Signs Temp 97.3 F L 03/06/24 16:00 Pulse 109 H 03/06/24 21:20 Resp 28 H 03/06/24 19:30 BP 116/70 03/06/24 14:00 Pulse Ox 91 L 03/06/24 19:30 FiO2 100 03/06/24 21:04 Intake & Output 03/06/24 03/06/24 03/07/24 06:59 18:59 06:59 Intake Total 4261.001 6313.204 369.474 Output Total 4035 805 13 Balance -2557.174 1468.204 356.474 Weight 99 kg Intake: IV 170 280 40 Cefepime 1 gm In Sodium 50 50 Chloride 0.9% 50 ml @ 12. 5 mls/hr IVPB Q12HR [facility] Rx#:[id number] Sodium Chloride 0.9% 1, 120 230 40 000 ml @ 10 mls/hr IV . Q24H [facility] M Rx#:[id number] Intake, IV Titration 639.298 6334.204 299.474 Amount Cefepime 1 gm In Sodium 50 Chloride 0.9% 50 ml @ 12. 5 mls/hr IVPB Q12HR [facility] M Rx#:[id number] Dexmedetomidine/0.9% NaCl 19.033 (Pmx) 400 mcg In Empty Bag 1 bag @ 0.2 MCG/KG/HR 4.965 mls/hr IV .[id number] [facility] M Rx#:[id number] Heparin Sod,Pork in 0.45% 250 249.474 NaCl 25,000 unit In 0.45 % NaCl 1 250ml.bag @ 18 UNITS/KG/HR 17.146 mls/hr IV .[id number] [facility] M Rx#: [id number] Norepinephrine 4 mg In 362.535 833.189 Sodium Chloride 0.9% 250 ml @ 0.03 MCG/KG/MIN 11. 655 mls/hr IV .[id number] [facility] M Rx#:[id number] propofoL 1,000 mg In 176.258 290.015 Empty Bag 1 bag @ 15 MCG/ KG/MIN 8.937 mls/hr IV . [id number] [facility] M Rx#:[id number] Oral 120 Hemodialysis 500 750 Other 30 Output: Urine 35 55 13 Hemodialysis 2250 160 Hemodialysis Net Amount 1750 590 Other: Voiding Method Indwelling Catheter Indwelling Catheter ABP, PAP, CO, CI - Last Documented Arterial Blood Pressure 101/64 - Exam -GENERAL: Patient is on mechanical ventilator. HEENT: Pupils are round and equally reacting to light. No scleral icterus. No conjunctival pallor. Normocephalic, atraumatic. No thyromegaly. CARDIOVASCULAR: S1 and S2 present. No murmurs, rubs, or gallops. -PULMONARY: Bibasilar diminished sounds. ET tube in place. ABDOMEN: Soft, nontender, nondistended, normoactive bowel sounds. No palpable organomegaly. MUSCULOSKELETAL: No joint swelling or deformity. EXTREMITIES: No cyanosis, clubbing, or pedal edema. NEUROLOGICAL: Gross neurological examination did not reveal any focal deficits. Patient is sedated. -SKIN: No rashes. no petechiae. Left axillary rash - Labs CBC & Chem 7: 03/07/24 04:45 03/07/24 04:45 Labs: Abnormal Lab Results - Last 24 Hours (Table) 03/04/24 03/04/24 03/05/24 Range/Units 12:00 12:19 09:43 WBC (3.8-10.6) k/uL RBC (4.30-5.90) m/uL Hgb (13.0-17.5) gm/dL Hct (39.0-53.0) % RDW (11.5-15.5) % Neutrophils # (Manual) (1.3-7.7) k/uL Lymphocytes # (Manual) (1.0-4.8) k/uL APTT (22.0-30.0) sec ABG pH (7.35-7.45) ABG pCO2 (35-45) mmHg ABG pO2 (83-108) mmHg ABG HCO3 (21-25) mmol/L ABG O2 Saturation (94-97) % Sodium (137-145) mmol/L Chloride (98-107) mmol/L Carbon Dioxide (22-30) mmol/L BUN (9-20) mg/dL Creatinine (0.66-1.25) mg/dL Glucose (74-99) mg/dL POC Glucose (mg/dL) (70-110) mg/dL Osmolality 308 H (275-295) mOsm/kg Calcium (8.4-10.2) mg/dL Urine Osmolality 299 L (400-1100) mOsm/kg Hep Bs Antibody A (Negative) 03/06/24 03/06/24 03/06/24 Range/Units 00:38 01:44 04:55 WBC 31.8 H (3.8-10.6) k/uL RBC 4.01 L (4.30-5.90) m/uL Hgb 12.6 L (13.0-17.5) gm/dL Hct 38.7 L (39.0-53.0) % RDW 15.8 H (11.5-15.5) % Neutrophils # (Manual) 31.40 H (1.3-7.7) k/uL Lymphocytes # (Manual) 0.64 L (1.0-4.8) k/uL APTT (22.0-30.0) sec ABG pH 7.19 L* (7.35-7.45) ABG pCO2 47 H (35-45) mmHg ABG pO2 (83-108) mmHg ABG HCO3 18 L (21-25) mmol/L ABG O2 Saturation 93.4 L (94-97) % Sodium (137-145) mmol/L Chloride (98-107) mmol/L Carbon Dioxide (22-30) mmol/L BUN (9-20) mg/dL Creatinine (0.66-1.25) mg/dL Glucose (74-99) mg/dL POC Glucose (mg/dL) 230 H (70-110) mg/dL Osmolality (275-295) mOsm/kg Calcium (8.4-10.2) mg/dL Urine Osmolality (400-1100) mOsm/kg Hep Bs Antibody (Negative) 03/06/24 03/06/24 03/06/24 Range/Units 04:55 05:08 05:18 WBC (3.8-10.6) k/uL RBC (4.30-5.90) m/uL Hgb (13.0-17.5) gm/dL Hct (39.0-53.0) % RDW (11.5-15.5) % Neutrophils # (Manual) (1.3-7.7) k/uL Lymphocytes # (Manual) (1.0-4.8) k/uL APTT 64.1 H (22.0-30.0) sec ABG pH 7.19 L* (7.35-7.45) ABG pCO2 (35-45) mmHg ABG pO2 73 L (83-108) mmHg ABG HCO3 17 L (21-25) mmol/L ABG O2 Saturation 90.3 L (94-97) % Sodium 126 L (137-145) mmol/L Chloride 94 L (98-107) mmol/L Carbon Dioxide 14 L (22-30) mmol/L BUN 107 H* (9-20) mg/dL Creatinine 4.75 H (0.66-1.25) mg/dL Glucose 242 H (74-99) mg/dL POC Glucose (mg/dL) (70-110) mg/dL Osmolality (275-295) mOsm/kg Calcium 7.0 L (8.4-10.2) mg/dL Urine Osmolality (400-1100) mOsm/kg Hep Bs Antibody (Negative) 03/06/24 03/06/24 03/06/24 Range/Units 06:33 11:34 17:11 WBC (3.8-10.6) k/uL RBC (4.30-5.90) m/uL Hgb (13.0-17.5) gm/dL Hct (39.0-53.0) % RDW (11.5-15.5) % Neutrophils # (Manual) (1.3-7.7) k/uL Lymphocytes # (Manual) (1.0-4.8) k/uL APTT (22.0-30.0) sec ABG pH (7.35-7.45) ABG pCO2 (35-45) mmHg ABG pO2 (83-108) mmHg ABG HCO3 (21-25) mmol/L ABG O2 Saturation (94-97) % Sodium (137-145) mmol/L Chloride (98-107) mmol/L Carbon Dioxide (22-30) mmol/L BUN (9-20) mg/dL Creatinine (0.66-1.25) mg/dL Glucose (74-99) mg/dL POC Glucose (mg/dL) 251 H 196 H 208 H (70-110) mg/dL Osmolality (275-295) mOsm/kg Calcium (8.4-10.2) mg/dL Urine Osmolality (400-1100) mOsm/kg Hep Bs Antibody (Negative) Microbiology - Last 24 Hours (Table) 03/06/24 01:30 Gram Stain - Preliminary Sputum 03/03/24 18:44 Blood Culture - Preliminary Blood Assessment and Plan Assessment: Acute hypoxemic respiratory failure secondary to multifactorial. CHF and underlying pneumonia. Patient was initially on BiPAP. Currently on mechanical ventilator. Acute COPD exacerbation Left lower lobe consolidation/pneumonia Leukocytosis A-fib and RVR Acute kidney injury likely due to ATN. Anemia Hyponatremia Hypertension, currently blood pressure on the low side Hypothyroidism Anxiety Left axillary fungal infection/candidiasis History of pulmonary embolism Obesity with BMI of 33.2 on admission Plan: Patient is on mechanical ventilator. Sedated and on pressor support with Levophed. Continue with IV Solu-Medrol. Patient was given a dose of IV Lasix. Continue with bronchodilator On Cardizem drip with cardiology following closely Continue with heparin drip Pulmonary and nephrology is on board. Continue with nystatin Xanax as needed Recommend to hold IV fluids Nephrology is planning for renal replacement therapy. Vascular surgery was cons ulted for dialysis access. Labs and medication were reviewed..Continue with symptomatic treatment. Resume home medication. Monitor labs and vitals. DVT and GI prophylaxis. DVT prophylaxis: heparin GI Prophylaxis: Pepcid Prognosis is guarded Time with Patient: Greater than 30
--- NOTE | 2024-03-07 22:55 | P.PN ---
Subjective Progress Note Date: 03/07/24 This is a pleasant 63 years old male with past medical history of multiple medical problems including A-fib, hypothyroidism, pulmonary embolism and hypertension Patient presents because of dyspnea over 4 days. Patient is poor historian because of his BiPAP Patient have hard time talking because of his dyspnea However patient can states he does not have chest pain Abdomen looks soft no leg edema no urinary problems or complaints Currently getting oxygen via his BiPAP and he has expiratory wheezing He says his smoker about 1 pack/day, unknown about his alcohol or illicit drugs He is afebrile He has mild leukocytosis at 14,000, hemoglobin 14.5 INR 1.8 Sodium 126 and creatinine 4.5 D-dimer elevated 3.2 pH is low 7.2 and pCO2 is slightly elevated at 49 proBNP is high 1000 EKG showing A-fib with RVR at 135 Chest x-ray showing cardiomegaly with pulmonary vascular congestion Gallbladder ultrasound showing gallbladder within normal limits 03/05/2024 Patient is in the MICU. Currently on oxygen high flow 60 L in the at 85%. Overnight patient was on BiPAP. On antibiotics and follow-up surgery for possible pneumonia. Patient is also on diuretics for CHF. Chest x-ray showed interstitial edema and left lower lobe consolidation. Otherwise renal function remains the same with creatinine level 4.53. Other laboratory data showed WBC 17.3 hemoglobin 11.8 and platelets 51. Mindy has slightly elevated. 03/06/2024 Overnight patient had worsening shortness of breath and was agitated and restle ss. Could not keep his BiPAP. Patient was intubated and on Precedex currently. ABG showed pH 7.19 pCO2 45 pO2 73. Patient is also requiring pressor support with Levophed. Patient was given IV bicarb. Renal function is worsening and nephrology is planning for renal replacement therapy. Chest x-ray showed slight improvement in pulmonary edema but continues to have left lower lobe consolidation. Patient remains on IV antibiotics cefepime. Laboratory showed WBCs 31.8 hemoglobin 12.6 and platelets 286 sodium 126 potassium 4.1 chloride 94 bicarb is 14 BUN 107 creatinine 4.75 and blood sugar is 248 and calcium 7.0. 03/07/2024 Patient is in the MICU. Remains intubated and on mechanical ventilator. ABG showed pCO2 54 pH 7.25 and pO2 115. Chest x-ray continues to show edema/unilateral edema especially on the left side. Patient receiving Lasix and also on pressor support. Also on heparin drip. Currently on antibiotics in the form of cefepime. Patient is supposed to get hemodialysis today. Chest ultrasound showed suboptimal exam for assessment of left pleural effusion. 2D echocardiogram M on showed EF 50%. RV may be mildly dilated and larger. Patient was tachycardic. Other laboratory data showed WBC 22.3 hemoglobin 11.7 platelets 225 sodium 139 potassium 4.1 chloride 94 bicarb is 21 BUN 81 creatinine 4.17 and blood sugar 204 and calcium 6.6. Nephrology, cardiology and critical care team on board. Prognosis is poor at this time. Current medications reviewed. Objective - Vital Signs Vital signs: Vital Signs Temp 98.3 F 03/07/24 18:04 Pulse 29 L 03/07/24 18:45 Resp 0 L 03/07/24 18:45 BP 102/53 03/07/24 21:00 Pulse Ox 44 L 03/07/24 18:30 FiO2 100 03/07/24 15:48 Intake & Output 03/07/24 03/07/24 03/08/24 06:59 18:59 06:59 Intake Total 4484.958 5022.732 Output Total 88 631 Balance 1416.709 791.732 Weight 105.2 kg 105.2 kg Intake: IV 290 160 Cefepime 1 gm In Sodium 50 50 Chloride 0.9% 50 ml @ 12. 5 mls/hr IVPB Q12HR [facility] Rx#:[id number] Sodium Chloride 0.9% 1, 240 110 000 ml @ 10 mls/hr IV . Q24H [facility] M Rx#:[id number] Intake, IV Titration 7279.708 6402.732 Amount Heparin Sod,Pork in 0.45% 409.789 104.799 NaCl 25,000 unit In 0.45 % NaCl 1 250ml.bag @ 18 UNITS/KG/HR 17.146 mls/hr IV .[id number] [facility] Rx#: [id number] Morphine Sulfate (100 mg/ 0.408 2 ml) 100 mg In Sodium Chloride 0.9% 100 ml @ 1 MG/HR 1.02 mls/hr IV . Q24H [facility] M Rx#:[id number] Norepinephrine 4 mg In 577.606 668.205 Sodium Chloride 0.9% 250 ml @ 0.03 MCG/KG/MIN 11. 655 mls/hr IV .[id number] [facility] Rx#:[id number] Vasopressin 60 unit In 6.656 Sodium Chloride 0.9% 150 ml @ 0.03 UNITS/MIN 4.59 mls/hr IV .Q24H [facility] M Rx#: [id number] propofoL 1,000 mg In 197.314 232.664 Empty Bag 1 bag @ 15 MCG/ KG/MIN 8.937 mls/hr IV . [id number] [facility] M Rx#:[id number] Hemodialysis 250 Other 30 Output: Gastric Drainage 50 Urine 38 21 Hemodialysis 430 Hemodialysis Net Amount 180 Other: Voiding Method Indwelling Catheter Indwelling Catheter # Voids 0 ABP, PAP, CO, CI - Last Documented Arterial Blood Pressure 03/15 - Exam -GENERAL: Patient is on mechanical ventilator. HEENT: Pupils are round and equally reacting to light. No scleral icterus. No conjunctival pallor. Normocephalic, atraumatic. No thyromegaly. CARDIOVASCULAR: S1 and S2 present. No murmurs, rubs, or gallops. -PULMONARY: Bibasilar diminished sounds. ET tube in place. ABDOMEN: Soft, nontender, nondistended, normoactive bowel sounds. No palpable organomegaly. MUSCULOSKELETAL: No joint swelling or deformity. EXTREMITIES: No cyanosis, clubbing, or pedal edema. NEUROLOGICAL: Gross neurological examination did not reveal any focal deficits. Patient is sedated. -SKIN: No rashes. no petechiae. Left axillary rash - Labs CBC & Chem 7: 03/07/24 04:45 03/07/24 04:45 Labs: Abnormal Lab Results - Last 24 Hours (Table) 03/06/24 03/07/24 03/07/24 Range/Units 23:40 00:27 04:45 WBC 22.3 H (3.8-10.6) k/uL RBC 3.68 L (4.30-5.90) m/uL Hgb 11.7 L (13.0-17.5) gm/dL Hct 35.3 L (39.0-53.0) % RDW 15.8 H (11.5-15.5) % Neutrophils # (Manual) 20.50 H (1.3-7.7) k/uL APTT (22.0-30.0) sec ABG pH 7.29 L (7.35-7.45) ABG pCO2 52 H (35-45) mmHg ABG pO2 60 L (83-108) mmHg ABG Total CO2 27 H (19-24) mmol/L ABG O2 Saturation 85.2 L (94-97) % Sodium (137-145) mmol/L Chloride (98-107) mmol/L Carbon Dioxide (22-30) mmol/L BUN (9-20) mg/dL Creatinine (0.66-1.25) mg/dL Glucose (74-99) mg/dL POC Glucose (mg/dL) 221 H (70-110) mg/dL Calcium (8.4-10.2) mg/dL 03/07/24 03/07/24 03/07/24 Range/Units 04:45 04:45 05:14 WBC (3.8-10.6) k/uL RBC (4.30-5.90) m/uL Hgb (13.0-17.5) gm/dL Hct (39.0-53.0) % RDW (11.5-15.5) % Neutrophils # (Manual) (1.3-7.7) k/uL APTT 88.0 H (22.0-30.0) sec ABG pH (7.35-7.45) ABG pCO2 (35-45) mmHg ABG pO2 (83-108) mmHg ABG Total CO2 (19-24) mmol/L ABG O2 Saturation (94-97) % Sodium 129 L (137-145) mmol/L Chloride 94 L (98-107) mmol/L Carbon Dioxide 21 L (22-30) mmol/L BUN 81 H (9-20) mg/dL Creatinine 4.17 H (0.66-1.25) mg/dL Glucose 204 H (74-99) mg/dL POC Glucose (mg/dL) 197 H (70-110) mg/dL Calcium 6.6 L (8.4-10.2) mg/dL 03/07/24 03/07/24 03/07/24 Range/Units 06:38 11:51 12:39 WBC (3.8-10.6) k/uL RBC (4.30-5.90) m/uL Hgb (13.0-17.5) gm/dL Hct (39.0-53.0) % RDW (11.5-15.5) % Neutrophils # (Manual) (1.3-7.7) k/uL APTT 83.8 H (22.0-30.0) sec ABG pH 7.25 L (7.35-7.45) ABG pCO2 54 H (35-45) mmHg ABG pO2 115 H (83-108) mmHg ABG Total CO2 26 H (19-24) mmol/L ABG O2 Saturation 97.5 H (94-97) % Sodium (137-145) mmol/L Chloride (98-107) mmol/L Carbon Dioxide (22-30) mmol/L BUN (9-20) mg/dL Creatinine (0.66-1.25) mg/dL Glucose (74-99) mg/dL POC Glucose (mg/dL) 255 H (70-110) mg/dL Calcium (8.4-10.2) mg/dL Microbiology - Last 24 Hours (Table) 03/06/24 01:30 Gram Stain - Preliminary Sputum Sputum Culture - Preliminary 03/03/24 18:44 Blood Culture - Preliminary Blood Assessment and Plan Assessment: Acute hypoxemic respiratory failure secondary to multifactorial. CHF and underlying pneumonia. Patient was initially on BiPAP. Currently on mechanical ventilator. Acute CHF with systolic dysfunction. Acute COPD exacerbation Left lower lobe consolidation/pneumonia Leukocytosis A-fib and RVR Acute kidney injury likely due to ATN. Anemia Hyponatremia Hypertension, currently blood pressure on the low side Hypothyroidism Anxiety Left axillary fungal infection/candidiasis History of pulmonary embolism Obesity with BMI of 33.2 on admission Plan: Patient is on mechanical ventilator. Sedated and on pressor support with Levophed. Continue with IV Solu-Medrol. Patient was given a dose of IV Lasix. Continue with bronchodilator On Cardizem drip with cardiology following closely Continue with heparin drip Pulmonary and nephrology is on board. Continue with nystatin Recommend to hold IV fluids Nephrology is planning and is recommending r renal replacement therapy. Vascular surgery was consulted for dialysis access. Patient is supposed to get hemodialysis today. Labs and medication were reviewed..Continue with symptomatic treatment. Resume home medication. Monitor labs and vitals. DVT and GI prophylaxis. DVT prophylaxis: heparin GI Prophylaxis: Pepcid Prognosis is poor. Could not get hold of legal guardian to address CODE STATUS. Time with Patient: Greater than 30
--- NOTE | 2024-03-08 07:20 | CDI ---
Documentation Clarification Form Date: 03/05/2024 02:57:00 PM From: Ambreen Zepeda RN CCDS Phone: [phone] Admit Date: 03/03/2024 09:47:00 PM Patient Name: Juan Carlos Jung Visit Number: [id number] Discharge Date: 03/07/2024 09:32:00 PM ATTENTION: The Clinical Documentation Specialists (CDI) and [facility] Coding Staff appreciate your assistance in clarifying documentation. Please respond to the clarification below the line at the bottom and electronically sign. The CDI & [facility] Coding staff will review the response and follow-up if needed. Please note: Queries are made part of the Legal Health Record. If you have any questions, please contact the author of this message via ITS. Doctor: Ruth Lowe The patient has Sepsis documented in ID Consult 03/04. Based on this information and the findings below, is there an additional diagnosis that is clinically appropriate for this patient? History/Risk Factors: 63-year old male presents to the ED with dyspnea. Medical History: Afib, Hypothyroidism, PE, HTN and PE. 03/04, HP. Clinical Indicators: 03/03, WBC: 14.0 03/03, Lactic acid: 2.7 03/03, Blood cultures: No growth after 24 hours 03/03,18:13 Vitals signs: B/P 108/57, HR 130, RR 22, SpO2 90% 6L nasal cannula: 03/03 23:10 97.9F Axillary. Treatment: ID Consult: 03/04: Sepsispatient presented to hospital with weakness which is likely multifactorial patient did have features of sepsis with tachypnea tachycardia and hypotension requiring admission to ICU with evidence of pulm infiltrate suspicious for pneumonia will require for the gram-negative to the likely pathogen. Antibiotics: 03/03 Rocephin IVP x 1; 03/04 Cefepime IVPB x 1; 03/05 Cefepime IVPB x Q12H IV Bolus: 03/03 0.9NS 500cc IV Bolus x 1; 03/03 0.9NS 500cc IV Bolus x 1; Is there an additional diagnosis that is clinically appropriate for this patient? [ x ] Sepsis, present on admission [ ] Septic Shock present on admission [ ] Other, please specify [ ] Unable to determine SIRS Criteria: 2 or more of the following may indicate SIRS Temperature < 96.8F (36C) or > 101.0F (38.3C) Heart Rate > 90 bpm Respiratory Rate > 20 breaths/min or PaCO2 < 32 mmHg White Blood Cell Count > 12,000 or < 4,000 cells/mm3 or > 10% bands (Template Last Reviewed: August 2022) MTDD
--- NOTE | 2024-03-08 14:32 | P.PN ---
Subjective Progress Note Date: 03/07/24 Principal diagnosis: Reason for follow-up is pneumonia and cutaneous candidiasis Patient is a 63-year-old male with a past medical history significant for COPD hypertension atrial fibrillation PE thyroid disorder patient presenting to [facility] ER for evaluation of not feeling, patient did have features of sepsis requiring admission to the ICU.Patient got intubated because of worsening respiratory status on 03/05/2024 On today's evaluation that is 03/07/2024, patient has been afebrile, patient remains to be intubated on the vent, FiO2 is currently at 70% having some secretions through the ET patient requiring pressor support however less than yesterday no diarrhea or any other change reported by the nursing staff. Patient white count is down to 22.3, creatinine is 4.17 blood and sputum cultures currently pending Objective - Vital Signs Vital signs: Vital Signs Temp 98.8 F 03/07/24 12:00 Pulse 85 03/07/24 13:00 Resp 30 H 03/07/24 13:00 BP 99/52 03/07/24 13:00 Pulse Ox 97 03/07/24 13:00 FiO2 100 03/07/24 12:42 Intake & Output 03/06/24 03/07/24 03/07/24 18:59 06:59 18:59 Intake Total 2300.579 1504.709 747.488 Output Total 805 88 13 Balance 0776.723 5145.709 734.488 Weight 105.2 kg 105.2 kg Intake: IV 280 290 130 Cefepime 1 gm In Sodium 50 50 50 Chloride 0.9% 50 ml @ 12. 5 mls/hr IVPB Q12HR VICTOR M Rx#:[id number] Sodium Chloride 0.9% 1, 230 240 80 000 ml @ 10 mls/hr IV . Q24H VICTOR M Rx#:[id number] Intake, IV Titration 6424.278 5820.709 617.488 Amount Heparin Sod,Pork in 0.45% 409.789 89.685 NaCl 25,000 unit In 0.45 % NaCl 1 250ml.bag @ 18 UNITS/KG/HR 17.146 mls/hr IV .[id number] VICTOR M Rx#: [id number] Norepinephrine 4 mg In 860.564 577.606 427.803 Sodium Chloride 0.9% 250 ml @ 0.03 MCG/KG/MIN 11. 655 mls/hr IV .[id number] VICTOR M Rx#:[id number] propofoL 1,000 mg In 290.015 197.314 100 Empty Bag 1 bag @ 15 MCG/ KG/MIN 8.937 mls/hr IV . [id number] VICTOR M Rx#:[id number] Oral 120 Hemodialysis 750 Other 30 Output: Gastric Drainage 50 Urine 55 38 13 Hemodialysis 160 Hemodialysis Net Amount 590 Other: Voiding Method Indwelling Catheter Indwelling Catheter Indwelling Catheter # Voids 0 ABP, PAP, CO, CI - Last Documented Arterial Blood Pressure 73/34 - Exam GENERAL DESCRIPTION: Middle-age male intubated on the vent RESPIRATORY SYSTEM: Unlabored breathing , decreased breath sounds at bases HEART: S1 S2 regular rate and rhythm , ABDOMEN: Soft , no tenderness EXTREMITIES: No edema feet - Labs CBC & Chem 7: 03/07/24 04:45 03/07/24 04:45 Labs: Abnormal Lab Results - Last 24 Hours (Table) 03/06/24 03/06/24 03/07/24 Range/Units 17:11 23:40 00:27 WBC (3.8-10.6) k/uL RBC (4.30-5.90) m/uL Hgb (13.0-17.5) gm/dL Hct (39.0-53.0) % RDW (11.5-15.5) % Neutrophils # (Manual) (1.3-7.7) k/uL APTT (22.0-30.0) sec ABG pH 7.29 L (7.35-7.45) ABG pCO2 52 H (35-45) mmHg ABG pO2 60 L (83-108) mmHg ABG Total CO2 27 H (19-24) mmol/L ABG O2 Saturation 85.2 L (94-97) % Sodium (137-145) mmol/L Chloride (98-107) mmol/L Carbon Dioxide (22-30) mmol/L BUN (9-20) mg/dL Creatinine (0.66-1.25) mg/dL Glucose (74-99) mg/dL POC Glucose (mg/dL) 208 H 221 H (70-110) mg/dL Calcium (8.4-10.2) mg/dL 03/07/24 03/07/24 03/07/24 Range/Units 04:45 04:45 04:45 WBC 22.3 H (3.8-10.6) k/uL RBC 3.68 L (4.30-5.90) m/uL Hgb 11.7 L (13.0-17.5) gm/dL Hct 35.3 L (39.0-53.0) % RDW 15.8 H (11.5-15.5) % Neutrophils # (Manual) 20.50 H (1.3-7.7) k/uL APTT 88.0 H (22.0-30.0) sec ABG pH (7.35-7.45) ABG pCO2 (35-45) mmHg ABG pO2 (83-108) mmHg ABG Total CO2 (19-24) mmol/L ABG O2 Saturation (94-97) % Sodium 129 L (137-145) mmol/L Chloride 94 L (98-107) mmol/L Carbon Dioxide 21 L (22-30) mmol/L BUN 81 H (9-20) mg/dL Creatinine 4.17 H (0.66-1.25) mg/dL Glucose 204 H (74-99) mg/dL POC Glucose (mg/dL) (70-110) mg/dL Calcium 6.6 L (8.4-10.2) mg/dL 03/07/24 03/07/24 03/07/24 Range/Units 05:14 06:38 11:51 WBC (3.8-10.6) k/uL RBC (4.30-5.90) m/uL Hgb (13.0-17.5) gm/dL Hct (39.0-53.0) % RDW (11.5-15.5) % Neutrophils # (Manual) (1.3-7.7) k/uL APTT (22.0-30.0) sec ABG pH 7.25 L (7.35-7.45) ABG pCO2 54 H (35-45) mmHg ABG pO2 115 H (83-108) mmHg ABG Total CO2 26 H (19-24) mmol/L ABG O2 Saturation 97.5 H (94-97) % Sodium (137-145) mmol/L Chloride (98-107) mmol/L Carbon Dioxide (22-30) mmol/L BUN (9-20) mg/dL Creatinine (0.66-1.25) mg/dL Glucose (74-99) mg/dL POC Glucose (mg/dL) 197 H 255 H (70-110) mg/dL Calcium (8.4-10.2) mg/dL 03/07/24 Range/Units 12:39 WBC (3.8-10.6) k/uL RBC (4.30-5.90) m/uL Hgb (13.0-17.5) gm/dL Hct (39.0-53.0) % RDW (11.5-15.5) % Neutrophils # (Manual) (1.3-7.7) k/uL APTT 83.8 H (22.0-30.0) sec ABG pH (7.35-7.45) ABG pCO2 (35-45) mmHg ABG pO2 (83-108) mmHg ABG Total CO2 (19-24) mmol/L ABG O2 Saturation (94-97) % Sodium (137-145) mmol/L Chloride (98-107) mmol/L Carbon Dioxide (22-30) mmol/L BUN (9-20) mg/dL Creatinine (0.66-1.25) mg/dL Glucose (74-99) mg/dL POC Glucose (mg/dL) (70-110) mg/dL Calcium (8.4-10.2) mg/dL Microbiology - Last 24 Hours (Table) 03/06/24 01:30 Gram Stain - Preliminary Sputum Sputum Culture - Preliminary 03/03/24 18:44 Blood Culture - Preliminary Blood Assessment and Plan (1) Sepsis Status: Acute Code(s): A41.9 - SEPSIS, UNSPECIFIED ORGANISM SNOMED Code(s): 98455927 (2) Candidiasis, intertrigo Status: Acute Code(s): B37.2 - CANDIDIASIS OF SKIN AND NAIL SNOMED Code(s): 871232054 (3) Pneumonia Status: Acute Code(s): J18.9 - PNEUMONIA, UNSPECIFIED ORGANISM SNOMED Code(s): 643123989 Plan: 1patient presented to hospital with weakness which is likely multifactorial patient did have features of sepsis with tachypnea tachycardia and hypotension requiring admission to ICU with evidence of pulm infiltrate suspicious for pneumonia will require for the gram-negative to the likely pathogen 2-patient also have a rash to the left axilla and groin area compatible with cutaneous candidiasis 3-sputum cultures have been obtained which are so far negative blood cultures are pending 4-patient did have improvement in the white count we will continue patient on cefepime while waiting for the culture to finalize prognosis remains to be guarded Dictation was produced using [employer] software. please excuse any grammatical, word or spelling errors. Time with Patient: Less than 30
== END 2024-03-07 21:32 | disposition expired | DRG 871 ==
LOC: EC 17:13 → SUPCPDRO 17:13 → 2SICU 21:47
PROVIDERS: ADMIT Hospitalist; ATTEND Hospitalist
PROC: 3E033RZ Introduction of Antiarrhythmic into Peripheral Vein, Percutaneous Approach (ICD-10-PCS; 2024-03-03)
PROC: 3E033XZ Introduction of Vasopressor into Peripheral Vein, Percutaneous Approach (ICD-10-PCS; 2024-03-04)
PROC: 5A09457 Assistance with Respiratory Ventilation, 24-96 Consecutive Hours, Continuous Positive Airway Pressure (ICD-10-PCS; 2024-03-04)
PROC: 5A1945Z Respiratory Ventilation, 24-96 Consecutive Hours (ICD-10-PCS; principal; 2024-03-05)
PROC: 0BH17EZ Insertion of Endotracheal Airway into Trachea, Via Natural or Artificial Opening (ICD-10-PCS; 2024-03-05)
PROC: 02HV33Z Insertion of Infusion Device into Superior Vena Cava, Percutaneous Approach (ICD-10-PCS; 2024-03-05)
PROC: 5A1D70Z Performance of Urinary Filtration, Intermittent, Less than 6 Hours Per Day (ICD-10-PCS; 2024-03-05)
PROC: 0D9670Z Drainage of Stomach with Drainage Device, Via Natural or Artificial Opening (ICD-10-PCS; 2024-03-05)
PROC: 4A133B1 Monitoring of Arterial Pressure, Peripheral, Percutaneous Approach (ICD-10-PCS; 2024-03-06)
PROC: 4A133J1 Monitoring of Arterial Pulse, Peripheral, Percutaneous Approach (ICD-10-PCS; 2024-03-06)
PROC: 03HY32Z Insertion of Monitoring Device into Upper Artery, Percutaneous Approach (ICD-10-PCS; 2024-03-06)
PROC: 05H633Z Insertion of Infusion Device into Left Subclavian Vein, Percutaneous Approach (ICD-10-PCS; 2024-03-07)
PROC: 4A133B1 Monitoring of Arterial Pressure, Peripheral, Percutaneous Approach (ICD-10-PCS; 2024-03-07)
PROC: 03HY32Z Insertion of Monitoring Device into Upper Artery, Percutaneous Approach (ICD-10-PCS; 2024-03-07)
PROC: 4A133J1 Monitoring of Arterial Pulse, Peripheral, Percutaneous Approach (ICD-10-PCS; 2024-03-07)
PROC: 3E0G76Z Introduction of Nutritional Substance into Upper GI, Via Natural or Artificial Opening (ICD-10-PCS; 2024-03-07)
DX: A41.9 Sepsis, unspecified organism (principal); I50.21 Acute systolic (congestive) heart failure; J18.9 Pneumonia, unspecified organism; N17.0 Acute kidney failure with tubular necrosis; J96.01 Acute respiratory failure with hypoxia; I13.0 Hypertensive heart and chronic kidney disease with heart failure and stage 1 through stage 4 chronic kidney disease, or unspecified chronic kidney disease; J44.0 Chronic obstructive pulmonary disease with (acute) lower respiratory infection; J44.1 Chronic obstructive pulmonary disease with (acute) exacerbation; F11.20 Opioid dependence, uncomplicated; E87.1 Hypo-osmolality and hyponatremia; E87.21 Acute metabolic acidosis; D63.1 Anemia in chronic kidney disease; I27.20 Pulmonary hypertension, unspecified; E11.22 Type 2 diabetes mellitus with diabetic chronic kidney disease; E11.65 Type 2 diabetes mellitus with hyperglycemia; N18.9 Chronic kidney disease, unspecified; I48.0 Paroxysmal atrial fibrillation; E66.9 Obesity, unspecified; Z68.33 Body mass index [BMI] 33.0-33.9, adult; E03.9 Hypothyroidism, unspecified; F32.A Depression, unspecified; R65.20 Severe sepsis without septic shock; Z66 Do not resuscitate; Z51.5 Encounter for palliative care; R62.7 Adult failure to thrive; Z28.311 Partially vaccinated for COVID-19; E86.0 Dehydration; B37.2 Candidiasis of skin and nail; E55.9 Vitamin D deficiency, unspecified; M54.9 Dorsalgia, unspecified; R74.01 Elevation of levels of liver transaminase levels; F41.9 Anxiety disorder, unspecified; F17.210 Nicotine dependence, cigarettes, uncomplicated; Z71.6 Tobacco abuse counseling; Z91.148 Patient's other noncompliance with medication regimen for other reason; Z79.01 Long term (current) use of anticoagulants; Z79.1 Long term (current) use of non-steroidal anti-inflammatories (NSAID); Z79.899 Other long term (current) drug therapy; Z96.651 Presence of right artificial knee joint; Z86.711 Personal history of pulmonary embolism; Z71.3 Dietary counseling and surveillance; Z88.0 Allergy status to penicillin
CPT/HCPCS: 36415; 36600; 51798; 71045; 71046; 76604; 76705; 76770; 80048; 80051; 80053; 80076; 81001; 82306; 82330; 82533; 82550; 82565; 82803; 82805; 83036; 83605; 83690; 83735; 83880; 83930; 83935; 84100; 84145; 84300; 84439; 84443; 84484; 84520; 85025; 85379; 85610; 85730; 86706; 87040; 87070; 87205; 87340; 87636; 90935; 93005; 93306; 94002; 94003; 94640; 94660; 96361; 96365; 96366; 96368; 96375; 99291